=== PATIENT | female | born 1985 | race Two or more races ===

== ENCOUNTER 2024-04-02 01:14 | Emergency (ER) | payer MEDICARE, MEDICAID, SELFPAY ==
[2024-04-02] VITALS (7 sets, daily range): BP systolic 106–139; BP diastolic 59–88; PULSE 75–93; RESP 16–20; TEMP 36.6–37.1; O2SAT 98–100; BMI 33.0
--- NOTE | 2024-04-02 01:34 | EKG_ITS ---
[facility] Test Date: 2024-04-02 Pat Name: ADDIE RODRIGUEZ Department: Room: - Gender: Female [employer] V[employer] Tender: : 1985 Requested By: Wilbur Moss Order Number: [id number] Reading MD: Wilbur Moss Measurements Intervals [place] Rate: 77 P: -34 SD: 122 QRS: 26 QRSD: 101 T: 12 QT: 365 QTc: 414 Interpretive Statements SINUS RHYTHM POSSIBLE ANTERIOR MYOCARDIAL INFARCTION , PROBABLY OLD [30 ms Q WAVE IN V3/V4, OR R < 0.2 mV IN V4] Compared to ECG 04/24/2021 13:04:38 Myocardial infarct finding now present /store/S0/[id number]/ecg/[id number]
--- NOTE | 2024-04-02 01:34 | XR_ITS ---
Examination: PA chest single view Technique: Upright PA chest single view Exam date and time: April 02, 2024 at 1349 hrs. Comparison July 17, 2021 Indications: Coughing shortness of breath beginning 3 days oh Findings: Mild prominence of ventricle Mild vascular congestion Subtle interstitial disease bilaterally especially right lung Impression: Subtle interstitial disease bilaterally especially right lung, most consistent with pneumonia
--- NOTE | 2024-04-02 01:35 | EDRME_ITS ---
Rapid Medical Screening Exam RME Arrival date/time: 04/02/24 01:14 39F with extensive PMH including SLE, Valley Fever, and kidney transplant at [facility] [[email or web address]] presents to ED with 3 days of CP and SOB. Patient was given Bactrim by PCP for presumptive PNA. Patient is feeling worse. Chief Complaint: General Adult/Misc Complain Vital signs: Vital Signs Temperature 98.2 F 04/02/24 01:22 Pulse Rate 80 04/02/24 01:22 Respiratory Rate 18 04/02/24 01:22 Blood Pressure 138/86 H 04/02/24 01:22 Pulse Oximetry (%) 100 04/02/24 01:22 Oxygen Delivery Method Room Air 04/02/24 01:22
[2024-04-02 02:04] LABS: Lactate (Lactic Acid) 0.6 mMol/L (0.4-2.0)
[2024-04-02 02:05] LABS: Basophils # (Auto) 0.1 Thou/mm3 (0.0-0.2); Basophils % (Auto) 1 % (0-2.5); Eosinophils # (Auto) 0.3 Thou/mm3 (0.0-0.5); Eosinophils % (Auto) 3 % (0-10); Hematocrit 36.6 % (36.0-46.0); Immature Granulocytes % (Auto) 1 % (0-0); Immature Granulocytes Auto 0.08 Thou/mm3 (0.00-0.00); Lymphocytes # (Auto) 1.6 Thou/mm3 (1.0-4.8); Lymphocytes % (Auto) 15 % (10-50); Mean Corpuscular HGB Conc 32.8 g/dl (31.0-37.0); Mean Corpuscular Hemoglobin 27.2 pg (25.0-35.0); Mean Corpuscular Volume 83 fL (80-100); Monocytes # (Auto) 0.7 Thou/mm3 (0.0-0.8); Monocytes % (Auto) 6 % (0-12); Neutrophils # (Auto) 8.2 Thou/mm3 (1.8-7.7); Neutrophils % (Auto) 75 % (37-80); Nucleated Red Blood Cell % 0 /100 WBC (0); Platelet Count 297 Thou/mm3 (140-440); RDW Standard Deviation 41.5 fL (36.4-46.3); Red Blood Count 4.41 Miln/mm3 (4.00-5.20); White Blood Count 10.9 Thou/mm3 (3.6-11.0)
[2024-04-02 02:36] LABS: B-Type Natriuretic Peptide 33 pg/mL (0-100)
[2024-04-02 02:44] LABS: Alanine Aminotransferase 45 U/L (10-49); Albumin, Serum 4.5 gm/dL (3.5-5.0); Albumin/Globulin Ratio 1.6 (1.2-2.2); Alkaline Phosphatase 151 U/L (46-116); Anion Gap 7 (7-16); Aspartate Amino Transferase 21 U/L (0-34); BUN/Creatinine Ratio 17 Ratio (12-20); Bilirubin,Total 0.2 mg/dL (0.3-1.2); Blood Urea Nitrogen 26 mg/dL (9-23); Chloride 103 mMol/L (98-107); Creatinine (Component) 1.5 mg/dL (0.6-1.3); Estimated Creatinine Clearance 57.8 mL/min (>60); Globulin 2.8 gm/dL (2.3-3.5); Glucose 79 mg/dL (74-106); Osmolality,Calculated 275 (275-295); Potassium 3.6 mMol/L (3.4-5.1); Procalcitonin < 0.04 ng/ml (0.0-0.49); Sodium 136 mMol/L (136-145); Total Protein 7.3 gm/dL (5.7-8.2); Troponin I < 0.020 ng/mL (0.0-0.045); eGFR 45 See Note
--- NOTE | 2024-04-02 03:27 | PD.EDADULT ---
ED General RME/HPI General Chief complaint: General Adult/Misc Complain Stated complaint: FEELING ILL Time Seen by Provider: 04/02/24 02:10 Arrival date/time: 04/02/24 01:14 RME / HPI RME / HPI narrative: 04/02/24 01:14 39F with extensive PMH including SLE, Valley Fever, and kidney transplant at [facility] presents to ED with 3 days of CP and SOB. Patient was given Bactrim by PCP for presumptive PNA. Patient is feeling worse. Related Data Home Medications ?Medication ?Instructions ?Recorded ?Confirmed hydroxychloroquine 200 mg tablet 200 mg PO BID ##60 12/21/16 08/28/20 atenolol 25 mg tablet 25 mg PO BID 01/24/18 08/28/20 mycophenolate sodium 180 mg 720 mg PO BID 08/28/20 08/28/20 tablet,delayed release omeprazole 20 mg capsule,delayed 20 mg PO DAILY 08/28/20 08/28/20 release prednisone 5 mg tablet 5 mg PO QDAY 08/28/20 08/28/20 tacrolimus 1 mg capsule, 5 mg PO QPM 08/28/20 08/28/20 immediate-release tacrolimus 1 mg capsule, 4 mg PO QAM 08/28/20 08/28/20 immediate-release (Prograf) Previous Rx's ?Medication ?Instructions ?Recorded metronidazole 500 mg tablet 500 mg PO TID #20 tabs 08/30/20 hydrocodone 5 mg-acetaminophen 325 1 tab PO BID PRN pain #14 tabs 03/20/21 mg tablet dicyclomine 20 mg tablet 20 mg PO TID biliary colic #20 tabs 04/24/21 tramadol 50 mg tablet 50 mg PO BID PRN pain #14 tabs 04/24/21 dicyclomine 20 mg tablet 20 mg PO QID PRN abdominal pain 08/27/21 #14 tabs Allergies Allergy/AdvReac Type Severity Reaction Status Date / Time Penicillins Allergy Severe RASH / Verified 04/02/24 01:17 SWELLING acetaminophen Allergy Rash Verified 04/02/24 01:17 Course Orders Category Date Time Status Bedside COVID-19 Antigen Test NOW Care 04/02/24 01:34 Active Bedside Influenza A&B Antigen Test NOW Care 04/02/24 01:34 Completed EKG (ED ONLY) *Do not use* NOW Care 04/02/24 01:34 Active EKG (ED Only) Stat Exams 04/02/24 01:34 Ordered XR chest 1V portable Stat Exams 04/02/24 01:34 Taken B-Type Natriuretic Peptide Stat Lab 04/02/24 01:56 Completed Blood Culture (Lab) Stat Lab 04/02/24 01:56 Received CBC Stat Lab 04/02/24 01:56 Completed Comprehensive Metabolic Panel Stat Lab 04/02/24 01:56 Completed Lactate (Lactic Acid) Stat Lab 04/02/24 01:56 Completed Procalcitonin Stat Lab 04/02/24 01:56 Completed RSV [Respiratory Syncytial Virus Ag] Stat Lab 04/02/24 01:34 Ordered Troponin I Stat Lab 04/02/24 01:56 Completed Vital Signs Vital signs: Vital Signs Temperature 98.2 F 04/02/24 01:22 Pulse Rate 80 04/02/24 01:22 Respiratory Rate 18 04/02/24 01:22 Blood Pressure 138/86 H 04/02/24 01:22 Pulse Oximetry (%) 100 04/02/24 01:22 Oxygen Delivery Method Room Air 04/02/24 01:22 Medical Decision Making Lab Data 04/02/24 01:56 04/02/24 01:56 Labs: Lab Results 04/02/24 Range/Units 01:56 WBC 10.9 (3.6-11.0) Thou/mm3 RBC 4.41 (4.00-5.20) Miln/mm3 Hgb 12.0 (12.0-16.0) g/dL Hct 36.6 (36.0-46.0) % MCV 83 (80-100) fL MCH 27.2 (25.0-35.0) pg MCHC 32.8 (31.0-37.0) g/dl RDW Std Deviation 41.5 (36.4-46.3) fL Plt Count 297 (140-440) Thou/mm3 Neut % (Auto) 75 (37-80) % Lymph % (Auto) 15 (10-50) % [place] % (Auto) 6 (0-12) % Eos % (Auto) 3 (0-10) % Baso % (Auto) 1 (0-2.5) % Neut # (Auto) 8.2 H (1.8-7.7) Thou/mm3 Lymph # (Auto) 1.6 (1.0-4.8) Thou/mm3 [place] # (Auto) 0.7 (0.0-0.8) Thou/mm3 Eos # (Auto) 0.3 (0.0-0.5) Thou/mm3 Baso # (Auto) 0.1 (0.0-0.2) Thou/mm3 Immature Gran # (Auto) 0.08 H (0.00-0.00) Thou/mm3 Absolute Nucleated RBC 0.00 (0.00-0.00) Thou/mm3 Immature Gran % 1 H (0-0) % Nucleated RBC % 0 (0) /100 WBC Sodium 136 (136-145) mMol/L Potassium 3.6 (3.4-5.1) mMol/L Chloride 103 (98-107) mMol/L Carbon Dioxide 26.0 (20.0-31.0) mMol/L Anion Gap 7 (7-16) BUN 26 H (9-23) mg/dL Creatinine 1.5 H (0.6-1.3) mg/dL Estim Creat Clear Calc 57.8 L (>60) mL/min eGFR 45 L (60 - ) See Note BUN/Creatinine Ratio 17 (12-20) Ratio Glucose 79 (74-106) mg/dL Calculated Osmolality 275 (275-295) Lactic Acid 0.6 (0.4-2.0) mMol/L Calcium 9.0 (8.3-10.6) mg/dL Corrected Calcium 9.0 (8.5-10.1) mg/dL Total Bilirubin 0.2 L (0.3-1.2) mg/dL AST 21 (0-34) U/L ALT 45 (10-49) U/L Alkaline Phosphatase 151 H (46-116) U/L Troponin I < 0.020 (0.0-0.045) ng/mL B-Natriuretic Peptide 33 (0-100) pg/mL Total Protein 7.3 (5.7-8.2) gm/dL Albumin 4.5 (3.5-5.0) gm/dL Globulin 2.8 (2.3-3.5) gm/dL Albumin/Globulin Ratio 1.6 (1.2-2.2) Procalcitonin < 0.04 (0.0-0.49) ng/ml Discharge Plan Prescriptions/Referrals Prescriptions/Med Rec: No Action hydroxychloroquine 200 mg Tablet 200 mg PO BID Qty: 60 prednisone 5 mg Tablet 5 mg PO QDAY tacrolimus [Prograf] 1 mg Capsule 4 mg PO QAM Rx Instructions: take 4 capsules (1 mg each) omeprazole 20 mg Capsule,Delayed Release(Dr/Ec) 20 mg PO DAILY tacrolimus 1 mg Capsule 5 mg PO QPM Rx Instructions: take 5 capsules (1 mg each) mycophenolate sodium 180 mg Tablet,Delayed Release (Dr/Ec) 720 mg PO BID metronidazole 500 mg tablet 500 mg PO TID Qty: 20 0RF hydrocodone-acetaminophen 5-325 mg tablet 1 tab PO BID MDD 4 PRN (Reason: pain) Qty: 14 0RF dicyclomine 20 mg tablet 20 mg PO QID PRN (Reason: abdominal pain) Qty: 14 0RF atenolol 25 mg Tablet 25 mg PO BID dicyclomine 20 mg tablet 20 mg PO TID Qty: 20 0RF tramadol 50 mg tablet 50 mg PO BID PRN (Reason: pain) Qty: 14 0RF Patient/Caregiver Discharge Instructions Print Language: Korean
--- NOTE | 2024-04-02 03:35 | PC.NURSE ---
In to assess pt at this time. Pt presents to er with c/o not feeling well . Pt states she's had a cough non productive, for 3 days. Was seen by pcp 1 week ago and Dx with pneumonia, but did not start abx for pneumonia until yest morning. Pt placed on vital sign monitoring. updated on plan of care. pt care ongoing at this time.
[2024-04-02 04:32] LABS: Respiratory Syncytial Virus Ag Negative (Negative)
--- NOTE | 2024-04-02 06:39 | EDNOTE_ITS ---
Upper Respiratory Inf. RME/HPI General Chief Complaint: General Adult/Misc Complain Stated Complaint: FEELING ILL Time Seen by Provider: 04/02/24 02:10 Arrival date/time: 04/02/24 01:14 RME / HPI RME / HPI Narrative: 39 year old female with history of s/p renal transplant at [facility] in 2019, hypertension, lupus, valley fever presents to the ED BIBA from home for evaluation of cough x 3 days and fevers beginning yesterday. States highest recorded temperature at home was 101F and did not take any fever reducing medications. Reportedly was diagnosed with pneumonia 1 week ago and started on antibiotics by Dr. Godfrey, received last dose yesterday morning. Denies chest pain, shortness of breath, abdominal pain, n/v/d, or urinary symptoms. Related Data Home Medications ?Medication ?Instructions ?Recorded ?Confirmed hydroxychloroquine 200 mg tablet 200 mg PO BID ##60 12/21/16 08/28/20 atenolol 25 mg tablet 25 mg PO BID 01/24/18 08/28/20 mycophenolate sodium 180 mg 720 mg PO BID 08/28/20 08/28/20 tablet,delayed release omeprazole 20 mg capsule,delayed 20 mg PO DAILY 08/28/20 08/28/20 release prednisone 5 mg tablet 5 mg PO QDAY 08/28/20 08/28/20 tacrolimus 1 mg capsule, 5 mg PO QPM 08/28/20 08/28/20 immediate-release tacrolimus 1 mg capsule, 4 mg PO QAM 08/28/20 08/28/20 immediate-release (Prograf) Previous Rx's ?Medication ?Instructions ?Recorded metronidazole 500 mg tablet 500 mg PO TID #20 tabs 08/30/20 hydrocodone 5 mg-acetaminophen 325 1 tab PO BID PRN pain #14 tabs 03/20/21 mg tablet dicyclomine 20 mg tablet 20 mg PO TID biliary colic #20 tabs 04/24/21 tramadol 50 mg tablet 50 mg PO BID PRN pain #14 tabs 04/24/21 dicyclomine 20 mg tablet 20 mg PO QID PRN abdominal pain 08/27/21 #14 tabs azithromycin 250 mg tablet See Rx Instructions PO .COMPLEX #6 04/02/24 (Zithromax Z-Kareem) tabs Allergies Allergy/AdvReac Type Severity Reaction Status Date / Time Penicillins Allergy Severe RASH / Verified 04/02/24 01:17 SWELLING acetaminophen Allergy Rash Verified 04/02/24 01:17 Review of Systems Review of Systems Narrative Review of Systems: GEN: +fever, no chills, no weight loss EYES: No discharge, no visual changes, no pain HEENT: No ear pain, no congestion, no sore throat PULM: No shortness of breath, +cough CV: No chest pain, no dyspnea on exertion, no palpitations GI: No nausea, no vomiting, no diarrhea, no pain, no constipation : No frequency, no urgency and no dysuria MUSC/SKEL No joint pain, no back pain SKIN: No rash NEURO: No weakness, no headache Past Medical History Past Medical History NEUROLOGIC: Positive Neurological Disorders and Seizures RESPIRATORY: Positive Pulmonary Embolism GENITOURINARY: Positive Genitourinary Disorders, Renal Disease and Dialysis ENDOCRINE: Positive Endocrine Disorders, Hypothyroidism and Systemic Lupus Erythematosus HEMATOLOGIC: Positive Blood Disorders and Anemia OTHER HISTORY: Positive Blood Transfusions and Organ Transplant Family History FAMILY HISTORY: Positive Family Cardiac Disorders Surgical History SURGICAL: Positive Endocrine Surgery, Thyroidectomy, Abdominal Surgery, Nephrectomy and Organ Transplant Social History SMOKING STATUS: Never smoker SUBSTANCE USE: does not use ED Exam Narrative Physical exam: GENERAL APPEARANCE: Well hydrated, well nourished, in no acute distress. VITALS: All vitals were reviewed and the pulse ox is 98% on room air which is normal according to my interpretation. HEENT: Normocephalic, atramatic, EOMI, EACs are patent. There is no bulge or retraction. Throat without erythema or exudate. Moist oromucosa. No jaundice NECK: Supple, no JVD or bruits. CARDIOVASCULAR: Heart regular without S3-S4 or murmur. No rubs or gallops. LUNGS/CHEST: Clear to auscultation bilaterally. No rales, rhonchi, or wheezing. Normal inspection. ABDOMEN: Soft, nontender, with normal bowel sounds. No pulsatile masses. No rebound, rigidity, or guarding. No incarcerated hernia. Normal inspection and palpation. EXTREMITIES: Normal inspection and palpation. No edema, clubbing, or cyanosis. Intact CSM SKIN: Warm and dry without rashes. Normal inspection. MUSCULOSKELETAL: Normal inspection. No gross deformity, full ROM all extremities NEURO: Alert and oriented x3. Cranial nerves II through XII grossly intact. There are no other motor or sensory deficits noted. PSYCHIATRIC: Normal mood and affect. No psychosis. Course Course Course Narrative: chest xray ordered to help determine etiology of cough. Quality Measures none Orders Category Date Time Status Bedside COVID-19 Antigen Test NOW Care 04/02/24 01:34 Active Bedside Influenza A&B Antigen Test NOW Care 04/02/24 01:34 Completed EKG (ED ONLY) *Do not use* NOW Care 04/02/24 01:34 Completed EKG (ED Only) Stat Exams 04/02/24 01:34 Draft XR chest 1V portable Stat Exams 04/02/24 01:34 Completed B-Type Natriuretic Peptide Stat Lab 04/02/24 01:56 Completed Blood Culture (Lab) Stat Lab 04/02/24 01:56 Received CBC Stat Lab 04/02/24 01:56 Completed Comprehensive Metabolic Panel Stat Lab 04/02/24 01:56 Completed HCG Qualitative,Urine Stat Lab 04/02/24 06:15 Completed Lactate (Lactic Acid) Stat Lab 04/02/24 01:56 Completed Procalcitonin Stat Lab 04/02/24 01:56 Completed RSV [Respiratory Syncytial Virus Ag] Stat Lab 04/02/24 03:15 Completed Troponin I Stat Lab 04/02/24 01:56 Completed UA, C/S IF [Urinalysis, C/S if Indicated] Stat Lab 04/02/24 06:15 Completed Sodium Chloride 0.9% 1000 ml [Ns] 1,000 ml Med 04/02/24 06:30 Discontinued IV 999 mls/hr cefTRIAXone/D5w 1gm IV premix [Rocephin/D5w 1gm IV Med 04/02/24 06:31 Discontinued premix] 50 ml IV X1 Vital Signs Vital signs: Vital Signs Temperature 98.2 F 04/02/24 01:22 Pulse Rate 80 04/02/24 01:22 Respiratory Rate 18 04/02/24 01:22 Blood Pressure 138/86 H 04/02/24 01:22 Pulse Oximetry (%) 100 04/02/24 01:22 Oxygen Delivery Method Room Air 04/02/24 01:22 Upper Respiratory Infection MDM Narrative MDM Narrative:: Rika Menezes am scribing for and in the presence of Dr. Jones. Patient chief complaint is coughing and pneumonia for a couple weeks. She has seen by PMD and was put on some sort of antibiotic but she does not know the name. She claims a fever yesterday of 101. Exam is very much unremarkable. Absolutely no surgical abdomen. CBC negative. BUN of 26 and creatinine is 1.5. Does show signs of dehydration. So therefore we will give the patient a liter of normal saline bolus. test negative. UA is negative. COVID-19 and influenza are negative. Lactic acid negative. Troponin negative. BNP negative. Procalcitonin negative. RSV is negative. Chest x-ray reviewed and interpreted by me as follow: Heart normal. Mediastinum normal. Normal bones. There is some slight infiltrate in the right base. May be consistent with pneumonia. That is why we give the patient a shot of Rocephin IV. Twelve-lead EKG that was done at 1:28 AM and interpreted by me: Normal sinus rhythm. Heart rate of 79. Normal axis. No ST elevation or depression. No PVC. No STEMI. Regular rate and rhythm. 11:43 AM, the patient is alert awake oriented x 4 GCS of 15 blood cells are stable. The patient is doing very well. Well-hydrated. She will go home on Zithromax p.o. And she will follow-up with her medical doctor. Her kidney function is fine. Creatinine is 1.5 which is similar to before. Patient data External records reviewed:: [facility] previous records (I reviewed ED visit on 09/17/2023) and EMS form Clinical information provided by:: patient Social determinants that could affect healthcare access:: none Patient has the following chronic illnesses:: s/p renal transplant at [facility] in 2019, hypertension, lupus, valley fever Dx with pneumonia recently How is presenting disease/condition affected by chronic disease/condition?: exacerbated by Evaluation data The following diagnostics were reviewed and interpreted by me:: lab results, radiology exam(s) and EKG tracing(s) Lab and/or radiology exams considered but not ordered:: None Interpretation Summary: Ordering Physician: Wilbur Moss PA-C Date of Service: 04/02/24 Procedure(s): XR chest 1V portable Accession Number(s): [id number] cc: Vic Trejo MD; Cosmo Martinez MD; Wilbur Moss PA-C~ Examination: PA chest single view Technique: Upright PA chest single view Exam date and time: April 02, 2024 at 1349 hrs. Comparison July 17, 2021 Indications: Coughing shortness of breath beginning 3 days oh Findings: Mild prominence of ventricle Mild vascular congestion Subtle interstitial disease bilaterally especially right lung Impression: Subtle interstitial disease bilaterally especially right lung, most consistent with pneumonia Dictated By: Cosmo Martinez MD Signed By: <Electronically signed by Cosmo Martinez MD in OV> 04/02/24 0837 Medications / Prescriptions Medications or Prescriptions considered but not ordered:: None Medication administrations:: Medication Administration History Discontinued Medications Sodium Chloride (Ns) 1,000 mls @ 999 mls/hr IV .Q1H1M ONE Stop: 04/02/24 07:30 Last Infusion: 04/02/24 08:08 Dose: Infused Documented By: Admin: 04/02/24 06:54 Dose: 999 mls/hr Documented By: ENRIQUETA Ceftriaxone Sodium/Dextrose (Rocephin/D5w 1gm Iv Premix) 50 mls @ 100 mls/hr IV X1 ONE Stop: 04/02/24 07:00 Last Infusion: 04/02/24 08:08 Dose: Infused Documented By: Admin: 04/02/24 06:54 Dose: 100 mls/hr Documented By: ENRIQUETA See above Consultations Consultation(s) initiated? (list below): No Diagnosis Upper Respiratory Differential Diagnosis: upper respiratory infection, viral infection, bronchitis, influenza and other (Pneumonia ) Most likely diagnosis given after review of the tests above:: Pneumonia Kidney transplant Admission Indicated Admission indicated?: not indicated Admission Request Was there a request for admission?: No Disposition Plan Disposition Plan: Discharge Discharge Attestation Discharge Attestation: The patient and all family members were given an opportunity to ask questions and understood the discharge instructions. Discharge instructions specifically effects, indications for sooner follow up or return to the emergency department, and the expected course of current diagnosis. Patient condition: Stable Discharge Plan Plan Patient Disposition: HOME (Self Care) Disposition Comment: Stable to go home Prescriptions/Referrals Prescriptions/Med Rec: New azithromycin [Zithromax Z-Kareem] 250 mg tablet See Rx Instructions PO .COMPLEX Qty: 6 0RF Rx Instructions: For 250 mg dose pack: take 500 mg today (day 1), then 250 mg for 4 days (days 2-5) No Action hydroxychloroquine 200 mg Tablet 200 mg PO BID Qty: 60 prednisone 5 mg Tablet 5 mg PO QDAY tacrolimus [Prograf] 1 mg Capsule 4 mg PO QAM Rx Instructions: take 4 capsules (1 mg each) omeprazole 20 mg Capsule,Delayed Release(Dr/Ec) 20 mg PO DAILY tacrolimus 1 mg Capsule 5 mg PO QPM Rx Instructions: take 5 capsules (1 mg each) mycophenolate sodium 180 mg Tablet,Delayed Release (Dr/Ec) 720 mg PO BID metronidazole 500 mg tablet 500 mg PO TID Qty: 20 0RF hydrocodone-acetaminophen 5-325 mg tablet 1 tab PO BID MDD 4 PRN (Reason: pain) Qty: 14 0RF dicyclomine 20 mg tablet 20 mg PO QID PRN (Reason: abdominal pain) Qty: 14 0RF atenolol 25 mg Tablet 25 mg PO BID dicyclomine 20 mg tablet 20 mg PO TID Qty: 20 0RF tramadol 50 mg tablet 50 mg PO BID PRN (Reason: pain) Qty: 14 0RF Referrals: Vic Trejo MD [Primary Care Provider] - In 1 week Problem List Clinical Impression: Pneumonia, Kidney transplant status Patient/Caregiver Discharge Instructions Education Materials: ED Pneumonia (Adult) Additional Instructions: Ibuprofen as needed for fever and pain. Rest. Drink plenty of liquid. Take Zithromax for pneumonia. You need to follow-up with your medical doctor in 3 days. Return to the emergency department if any problem. Print Language: Kazakh Stand Alone Forms: [employer] Award Info., Patient Portal Info Letter
[2024-04-02] MEDS: cefTRIAXone/D5w 1gm IV premix 50 ML IV (06:54)
[2024-04-02] MEDS: SODIUM CHLORIDE 0.9% 1000 ML 1,000 ML 999 ML IV (06:54)
--- NOTE | 2024-04-02 07:29 | PC.NURSE ---
Pt sitting up on stretcher, denies any pain or discomfort at this time, fluids infusing at this time. Call alvarenga remains in reach.
[2024-04-02 07:42] LABS: Collection Type, Urine Catheter
[2024-04-02 08:09] LABS: Bilirubin,Urine Negative (Negative); Blood,Urine Negative (Negative); Clarity,Urine Clear (Clear/Hazy); Color,Urine Colorless (Lt Yel-Yel); Culture Indicated,Urine Not Indicated; Glucose, Urine Negative (Negative); Ketones,Urine Negative (Negative); Leukocyte Esterase,Urine Negative (Negative); Nitrite,Urine Negative (Negative); PH,Urine 6.5 (5.0-7.0); Protein,Urine Negative (Neg - Trace); RBC,Urine < 1 /hpf (0-3); Specific Gravity,Urine 1.007 (1.001-1.035); Squamous Epithelial Cell,Urine 1 /hpf (0-5); Urobilinogen,Urine Negative mg/dL (0.0-1.0); WBC,Urine 1 /hpf (0-5)
[2024-04-02 08:15] LABS: HCG Qualitative,Urine Negative
== END 2024-04-02 11:58 | disposition home or self-care (01) ==
PROVIDERS: Physician Assistant; Emergency Provider Emergency Medicine; PCP Family Medicine
DX: J18.9 Pneumonia, unspecified organism (principal); Z94.0 Kidney transplant status; I10 Essential (primary) hypertension
CPT/HCPCS: 36415; 71045; 80053; 81001; 81025; 83605; 83880; 84145; 84484; 85025; 87040; 87400; 87634; 87811; 93005; 96365; 99284; J0696; J7030

== ENCOUNTER 2024-06-07 21:01 | Emergency (ER) | payer MEDICARE, MEDICAID, SELFPAY ==
--- NOTE | 2024-06-07 21:05 | EKG_ITS ---
[facility] Test Date: 2024-06-07 Pat Name: ADDIE RODRIGUEZ Department: Room: - Gender: Female Test Technician: : 1985 Requested By: Thanh Ellington Order Number: [id number] Reading MD: Thanh Ellington Measurements Intervals [place] Rate: 86 P: 39 HI: 172 QRS: 7 QRSD: 81 T: 64 QT: 360 QTc: 432 Interpretive Statements SINUS RHYTHM LOW QRS VOLTAGE IN PRECORDIAL LEADS [QRS DEFLECTION < 1.0 mV IN CHEST LEADS] Compared to ECG 04/02/2024 09:09:55 Low QRS voltage now present Myocardial infarct finding no longer present /store/S0/[id number]/[id number]
--- NOTE | 2024-06-07 21:05 | PD.EDADULT ---
ED General RME/HPI General Chief complaint: Abdominal Pain Stated complaint: CHEST PAIN Time Seen by Provider: 06/07/24 21:04 Arrival date/time: 06/07/24 21:01 CC: Nausea vomiting HPI onset 2 hours ago, denies fever chest pain shortness of breath difficulty breathing but is complaining of epigastric pain. Denies diarrhea. History of transplant valley fever and lupus. EMS reports stable vital signs in transit when patient complains of chest pain she points to the epigastrium. Related Data Home Medications ?Medication ?Instructions ?Recorded ?Confirmed hydroxychloroquine 200 mg tablet 200 mg PO BID ##60 12/21/16 06/08/24 mycophenolate sodium 180 mg See Rx Instructions PO BID 08/28/20 06/08/24 tablet,delayed release omeprazole 20 mg capsule,delayed 20 mg PO DAILY 08/28/20 06/08/24 release prednisone 5 mg tablet 5 mg PO QDAY 08/28/20 06/08/24 tacrolimus 1 mg capsule, 5 mg PO QPM 08/28/20 06/08/24 immediate-release tacrolimus 1 mg capsule, 1 mg PO QAM 08/28/20 06/08/24 immediate-release (Prograf) cholecalciferol (vitamin D3) 1,250 50,000 unit PO .WEEK 06/08/24 06/09/24 mcg (50,000 unit) capsule clonidine HCl 0.1 mg tablet 0.1 mg PO QDAY PRN hypertensive 06/08/24 06/08/24 emergency fluconazole 200 mg tablet 600 mg PO DAILY 06/08/24 06/09/24 magnesium 200 mg tablet See Rx Instructions PO QDAY 06/08/24 06/08/24 prednisone 20 mg tablet See Rx Instructions PO QDAY 06/08/24 06/08/24 Allergies Allergy/AdvReac Type Severity Reaction Status Date / Time Penicillins Allergy Severe RASH / Verified 06/07/24 21:06 SWELLING acetaminophen Allergy Rash Verified 06/07/24 21:06 Review of Systems Review of Systems Narrative Review of Systems: GEN: No fever, no chills, no weight loss EYES: No discharge, no visual changes, no pain HEENT: No ear pain, no congestion, no sore throat PULM: No shortness of breath, no cough, no congestion CV: + chest pain, no dyspnea on exertion, no palpitations GI: + nausea, + vomiting, no diarrhea, no pain, no constipation : No frequency, no urgency, no dysuria MUSC/SKEL: No joint pain, no back pain SKIN: No rash PSYCH: No hallucinations, no depression HEME/LYMPH: No easy bleeding or bruising tendencies NEURO: No weakness, no headache Past Medical History Past Medical History NEUROLOGIC: Positive Neurological Disorders and Seizures CARDIAC: Negative Cardiac Disorders, Hypercholesterolemia, Congestive Heart Failure, Edema or Hypertension RESPIRATORY: Positive Pulmonary Embolism; Negative Chronic Obstructive Pulmonary Disease (COPD) or Asthma GASTROINTESTINAL: Negative Gastrointestinal Disorders GENITOURINARY: Positive Genitourinary Disorders, Renal Disease and Dialysis MUSCULOSKELETAL: Negative Musculoskeletal Disorders ENDOCRINE: Positive Endocrine Disorders, Hypothyroidism and Systemic Lupus Erythematosus; Negative Diabetes Mellitus Type 1 or Diabetes Mellitus Type 2 HEMATOLOGIC: Positive Blood Disorders and Anemia; Negative Sickle Cell Disease OTHER HISTORY: Positive Blood Transfusions and Organ Transplant Family History FAMILY HISTORY: Positive Family Cardiac Disorders Surgical History SURGICAL: Positive Endocrine Surgery, Thyroidectomy, Abdominal Surgery, Nephrectomy and Organ Transplant Social History SMOKING STATUS: Never smoker SUBSTANCE USE: does not use ED Exam Narrative Physical exam: [General: Obese in mild discomfort but not in any acute distress Head normocephalic HEENT: Within acceptable limits Neck is supple nontender Chest equal chest rise nontender to palpation Respiratory: Clear to auscultation no wheezes crackles or rubs CV: Rate rhythm is regular no murmurs rubs or clicks Abdomen is distended secondary to body habitus soft nontender no masses positive bowel sounds all 4 quadrants Back: No CVA tenderness no spinous process tenderness from cervical spine thoracic and lumbar spine Skin: Intact no petechiae rash induration ulceration or crepitus Extremities: Moving all extremity against resistance cap refill less than 2 seconds neurosensory intact Neuro: Awake alert oriented x3 Glascow coma 15 no focal deficits] Course Quality Measures none Orders Category Date Time Status Bedside COVID-19 Antigen Test NOW Care 06/07/24 22:12 Active Bedside Influenza A&B Antigen Test NOW Care 06/07/24 21:07 Completed EKG (ED ONLY) *Do not use* NOW Care 06/07/24 21:05 Completed IV [Insert IV] NOW Care 06/07/24 22:47 Active Diet Renal Diet 06/09/24 Lunch Active Transfer to another facility [Transfer/Discharge] Stat Discharge 06/08/24 13:[address] abdomen pelvis wo con Stat Exams 06/08/24 03:[address] chest wo con Stat Exams 06/08/24 08:45 Completed EKG (ED Only) Stat Exams 06/07/24 21:05 Draft US gall bladder Stat Exams 06/08/24 00:00 Completed XR chest 2V Stat Exams 06/08/24 08:46 Completed B-Type Natriuretic Peptide Stat Lab 06/07/24 22:09 Completed CBC Stat Lab 06/07/24 22:09 Completed CBC Stat Lab 06/08/24 03:50 Completed CBC Stat Lab 06/08/24 13:05 Completed CMP [Comprehensive Metabolic Panel] Stat Lab 06/08/24 13:05 Completed Calcium Stat Lab 06/08/24 15:35 Completed Calcium, Ionized Stat Lab 06/08/24 15:35 Completed Comprehensive Metabolic Panel Stat Lab 06/07/24 22:09 Completed Drug Screen,Urine Stat Lab 06/07/24 23:50 Completed HCG Qualitative,Urine Stat Lab 06/07/24 23:50 Completed Lactic Acid [Lactate (Lactic Acid)] Stat Lab 06/08/24 15:35 Completed Lipase Stat Lab 06/07/24 22:09 Completed Magnesium Stat Lab 06/07/24 22:09 Completed Partial Thromboplastin Time Stat Lab 06/07/24 22:09 Completed Phosphorous Stat Lab 06/08/24 15:35 Completed Prothrombin Time with INR Stat Lab 06/07/24 22:09 Completed Troponin I Stat Lab 06/07/24 22:09 Completed Type and Screen Stat Lab 06/08/24 03:50 Completed Urinalysis Stat Lab 06/07/24 23:50 Completed Metoclopramide Inj [Reglan Inj] Med 06/08/24 03:30 Discontinued 5 mg IVP X1 ONE Morphine Inj Med 06/07/24 22:32 Discontinued 4 mg IVP X1 ONE Morphine Inj Med 06/07/24 23:15 Discontinued 4 mg IVP X1 ONE Morphine Inj Med 06/08/24 03:12 Discontinued 4 mg IVP X1 ONE Morphine Inj Med 06/08/24 08:56 Discontinued 4 mg IVP X1 ONE Morphine Inj Med 06/08/24 14:59 Discontinued 4 mg IVP X1 ONE Morphine Inj Med 06/09/24 00:09 Discontinued 4 mg IVP X1 ONE Morphine Inj Med 06/09/24 12:06 Discontinued 4 mg IVP X1 ONE Ondansetron Inj [Zofran Inj] Med 06/07/24 22:32 Discontinued 4 mg IV X1 ONE Ondansetron Inj [Zofran Inj] Med 06/07/24 23:16 Discontinued 4 mg IV X1 ONE Ondansetron Inj [Zofran Inj] Med 06/08/24 03:12 Discontinued 4 mg IV X1 ONE Ondansetron Inj [Zofran Inj] Med 06/08/24 08:56 Discontinued 4 mg IV X1 ONE Ondansetron Inj [Zofran Inj] Med 06/08/24 14:59 Discontinued 4 mg IV X1 ONE Ondansetron Inj [Zofran Inj] Med 06/08/24 20:29 Discontinued 4 mg IV X1 ONE Ondansetron Inj [Zofran Inj] Med 06/09/24 00:10 Discontinued 4 mg IV X1 ONE Ondansetron Inj [Zofran Inj] Med 06/09/24 12:06 Discontinued 4 mg IV X1 ONE Pantoprazole Inj [Protonix Inj] Med 06/08/24 03:21 Discontinued 40 mg IVP X1 ONE Patient's Own Med [Patient's Own Medication] 1 ea Med 06/09/24 10:30 Active Pre-Mixed Bottle [Pre-mixed Bottle] 1 btl PO BID Sodium Chloride 0.9% 1000 ml [Ns] 1,000 ml Med 06/08/24 12:42 Active IV 150 mls/hr Sodium Chloride 0.9% 1000 ml [Ns] 1,000 ml Med 06/08/24 12:42 Discontinued IV 999 mls/hr Sodium Chloride 0.9% 1000 ml [Ns] 1,860 ml Med 06/07/24 23:23 Discontinued IV 1,860 mls/hr Tacrolimus [Prograf] Med 06/09/24 09:00 Active 1 mg PO QAM Tacrolimus [Prograf] Med 06/09/24 21:00 Active 5 mg PO QPM mg Hyd/Al Hyd/Billy Susp [Maalox Susp] Med 06/08/24 20:08 Discontinued 30 ml PO X1 ONE mycophenolate sodium Med 06/09/24 09:00 Discontinued See Dose Instructions PO BID Vital Signs Vital signs: Vital Signs Temperature 97.9 F 06/07/24 21:13 Pulse Rate 88 06/07/24 21:13 Respiratory Rate 20 06/07/24 21:13 Blood Pressure 133/93 H 06/07/24 21:13 Pulse Oximetry (%) 100 06/07/24 21:13 Oxygen Delivery Method Nasal Cannula 06/07/24 21:13 Oxygen Flow Rate 4 06/07/24 21:[address] [facility] Patient data External records reviewed:: [facility] previous records and EMS form Clinical information provided by:: patient and EMS Social determinants that could affect healthcare access:: none Patient has the following chronic illnesses:: Lupus valley fever renal transplant note: Patient took all of her antirejection medications today. How is presenting disease/condition affected by chronic disease/condition?: uneffected by Evaluation data The following diagnostics were reviewed and interpreted by me:: lab results, radiology exam(s) and EKG tracing(s) Lab and/or radiology exams considered but not ordered:: EKG performed at 2120 shows a ventricular rate of 86 KS interval 172 QRS of 8 1 QTc of 404 sinus rhythm. Interpretation Summary: See [facility] Medications Medications considered but not ordered:: See [facility] Medication administrations:: Medication Administration History Mycophenolic 180mg (Dr Tablet) 0 ea PO BID BOLIVAR Stop: 07/09/24 10:29 Sodium Chloride (Ns) 1,000 mls @ 150 mls/hr IV .Q6H40M BOLIVAR Stop: 07/08/24 12:41 Last Admin: 06/09/24 09:29 Dose: 150 mls/hr Documented By: Infusion: 06/09/24 09:16 Dose: Infused Documented By: Admin: 06/09/24 02:35 Dose: 150 mls/hr Documented By: Infusion: 06/09/24 02:35 Dose: Infused Documented By: Admin: 06/08/24 20:25 Dose: 150 mls/hr Documented By: Infusion: 06/08/24 20:09 Dose: Infused Documented By: Admin: 06/08/24 13:28 Dose: 150 mls/hr Documented By: GM Tacrolimus (Tacrolimus 1 Mg Capsule (Non-Formulary)) 1 mg PO QAM BOLIVAR Stop: 07/09/24 08:59 Last Admin: 06/09/24 09:39 Dose: Not Given Documented By: ELIELS Non-Admin Reason: PT STATES THAT SHE TOOK MEDS Tacrolimus (Tacrolimus 1 Mg Capsule (Non-Formulary)) 5 mg PO QPM BOLIVAR Stop: 07/09/24 20:59 Discontinued Medications Al Hydrox/Mg Hydrox/Simethicone (Mg Hyd/Al Hyd/Billy (Maalox Reg) Susp 30 Ml Udc) 30 ml PO X1 ONE Stop: 06/08/24 20:09 Last Admin: 06/08/24 20:25 Dose: 30 ml Documented By: MURPHY Sodium Chloride (Ns) 1,860 mls @ 1,860 mls/hr 20 ml/kg infuse over 60 min (1860 ml) IV .Q1H ONE Stop: 06/08/24 00:22 Last Infusion: 06/08/24 00:40 Dose: Infused Documented By: Admin: 06/07/24 23:38 Dose: 1,860 mls/hr Documented By: COURTNEY Sodium Chloride (Ns) 1,000 mls @ 999 mls/hr IV .Q1H1M ONE Stop: 06/08/24 13:42 Last Infusion: 06/08/24 13:51 Dose: Infused Documented By: Admin: 06/08/24 12:47 Dose: 999 mls/hr Documented By: GENARO Metoclopramide HCl (Metoclopramide Inj 5 Mg/Ml Vial 2 Ml) 5 mg IVP X1 ONE; Protocol Stop: 06/08/24 03:31 Last Admin: 06/08/24 03:41 Dose: Not Given Documented By: COURTNEY Non-Admin Reason: Contraindicated Comments: pt was told by her rn telemetry Morphine Sulfate (Morphine Sulf Inj 10 Mg/Ml Vial) 4 mg IVP X1 ONE Stop: 06/07/24 22:33 Last Admin: 06/07/24 22:51 Dose: 4 mg Documented By: COURTNEY Morphine Sulfate (Morphine Sulf Inj 10 Mg/Ml Vial) 4 mg IVP X1 ONE Stop: 06/07/24 23:16 Last Admin: 06/07/24 23:41 Dose: 4 mg Documented By: COURTNEY Morphine Sulfate (Morphine Sulf Inj 10 Mg/Ml Vial) 4 mg IVP X1 ONE Stop: 06/08/24 03:13 Last Admin: 06/08/24 03:27 Dose: 4 mg Documented By: COURTNEY Morphine Sulfate (Morphine Sulf Inj 10 Mg/Ml Vial) 4 mg IVP X1 ONE Stop: 06/08/24 08:57 Last Admin: 06/08/24 09:02 Dose: 4 mg Documented By: GENARO Morphine Sulfate (Morphine Sulf Inj 10 Mg/Ml Vial) 4 mg IVP X1 ONE Stop: 06/08/24 15:00 Last Admin: 06/08/24 15:07 Dose: 4 mg Documented By: MOIRA Morphine Sulfate (Morphine Sulf Inj 10 Mg/Ml Vial) 4 mg IVP X1 ONE Stop: 06/09/24 00:10 Last Admin: 06/09/24 00:19 Dose: 4 mg Documented By: MURPHY Morphine Sulfate (Morphine Sulf Inj 10 Mg/Ml Vial) 4 mg IVP X1 ONE Stop: 06/09/24 12:07 Last Admin: 06/09/24 12:22 Dose: 4 mg Documented By: SHAHRAM Comments: RR 20 Home Medication- Please Speak With Patient Caregiver To Have Rx Brought To [facility] 0 mg PO BID BOLIVAR Stop: 07/09/24 08:59 Last Admin: 06/09/24 09:39 Dose: Not Given Documented By: SHAHRAM Non-Admin Reason: PT STATES THAT SHE TOOK MED Ondansetron HCl (Ondansetron Inj 2 Mg/Ml Inj 2 Ml) 4 mg IV X1 ONE; Protocol Stop: 06/07/24 22:33 Last Admin: 06/07/24 22:49 Dose: 4 mg Documented By: LB Ondansetron HCl (Ondansetron Inj 2 Mg/Ml Inj 2 Ml) 4 mg IV X1 ONE; Protocol Stop: 06/07/24 23:17 Last Admin: 06/07/24 23:39 Dose: 4 mg Documented By: LB Ondansetron HCl (Ondansetron Inj 2 Mg/Ml Inj 2 Ml) 4 mg IV X1 ONE; Protocol Stop: 06/08/24 03:13 Last Admin: 06/08/24 03:25 Dose: 4 mg Documented By: LB Ondansetron HCl (Ondansetron Inj 2 Mg/Ml Inj 2 Ml) 4 mg IV X1 ONE; Protocol Stop: 06/08/24 08:57 Last Admin: 06/08/24 09:03 Dose: 4 mg Documented By: GM Ondansetron HCl (Ondansetron Inj 2 Mg/Ml Inj 2 Ml) 4 mg IV X1 ONE; Protocol Stop: 06/08/24 15:00 Last Admin: 06/08/24 15:07 Dose: 4 mg Documented By: MOIRA Ondansetron HCl (Ondansetron Inj 2 Mg/Ml Inj 2 Ml) 4 mg IV X1 ONE; Protocol Stop: 06/08/24 20:30 Last Admin: 06/08/24 20:36 Dose: 4 mg Documented By: MURPHY Ondansetron HCl (Ondansetron Inj 2 Mg/Ml Inj 2 Ml) 4 mg IV X1 ONE; Protocol Stop: 06/09/24 00:11 Last Admin: 06/09/24 00:18 Dose: 4 mg Documented By: MURPHY Ondansetron HCl (Ondansetron Inj 2 Mg/Ml Inj 2 Ml) 4 mg IV X1 ONE; Protocol Stop: 06/09/24 12:07 Last Admin: 06/09/24 12:21 Dose: 4 mg Documented By: SHAHRAM Pantoprazole Sodium (Pantoprazole Inj 40 Mg Vial) 40 mg IVP X1 ONE Stop: 06/08/24 03:22 Last Admin: 06/08/24 03:40 Dose: Not Given Documented By: COURTNEY Non-Admin Reason: Contraindicated As above Consultations Consultation(s) initiated? (list below): Yes Diagnosis Differential Diagnosis ED Complaint MDM: Patient is immunocompromise see MDM for a doctor who assumed care Most likely diagnosis given after review of the tests above:: Intractable nausea vomiting possibly related to gallbladder disease Admission Indicated Admission indicated?: indicated Explain why admission is indicated or not indicated:: Patient is immunocompromise need to be transferred to their facility which is [facility] see MDM for physician who assumed care. Admission Request Was there a request for admission?: No Disposition Plan Disposition Plan: Transfer Medical Decision Making Differential Diagnosis Differential Diagnosis: Patient is immunocompromise see MDM for a doctor who assumed care Lab Data 06/08/24 13:05 06/08/24 13:05 Labs: Lab Results 06/07/24 06/07/24 06/08/24 Range/Units 22:09 23:50 03:50 WBC 14.5 H 11.0 (3.6-11.0) Thou/mm3 RBC 5.05 4.24 (4.00-5.20) Miln/mm3 Hgb 13.7 11.5 L D (12.0-16.0) g/dL Hct 42.3 35.3 L (36.0-46.0) % MCV 84 83 (80-100) fL MCH 27.1 27.1 (25.0-35.0) pg MCHC 32.4 32.6 (31.0-37.0) g/dl RDW Std Deviation 40.6 40.7 (36.4-46.3) fL Plt Count 295 228 D (140-440) Thou/mm3 Neut % (Auto) 88 H 90 H (37-80) % Lymph % (Auto) 6 L 3 L (10-50) % [place] % (Auto) 4 5 (0-12) % Eos % (Auto) 2 1 (0-10) % Baso % (Auto) 0 1 (0-2.5) % Neut # (Auto) 12.7 H 9.9 H (1.8-7.7) Thou/mm3 Lymph # (Auto) 0.8 L 0.4 L (1.0-4.8) Thou/mm3 [place] # (Auto) 0.6 0.6 (0.0-0.8) Thou/mm3 Eos # (Auto) 0.2 0.1 (0.0-0.5) Thou/mm3 Baso # (Auto) 0.1 0.1 (0.0-0.2) Thou/mm3 Immature Gran # (Auto) 0.06 H 0.06 H (0.00-0.00) Thou/mm3 Absolute Nucleated RBC 0.00 0.00 (0.00-0.00) Thou/mm3 Immature Gran % 0 1 H (0-0) % Nucleated RBC % 0 0 (0) /100 WBC PT 11.8 (9.0-12.2) Seconds INR 1.1 (0.9-1.3) APTT 28.4 (22.0-36.0) Seconds Sodium 139 (136-145) mMol/L Potassium 4.4 (3.4-5.1) mMol/L Chloride 106 (98-107) mMol/L Carbon Dioxide 21.7 (20.0-31.0) mMol/L Anion Gap 11 (7-16) BUN 20 (9-23) mg/dL Creatinine 1.4 H (0.6-1.3) mg/dL Estim Creat Clear Calc 63.2 (>60) mL/min eGFR 49 L (60 - ) See Note BUN/Creatinine Ratio 14 (12-20) Ratio Glucose 102 (74-106) mg/dL Calculated Osmolality 280 (275-295) Lactic Acid (0.4-2.0) mMol/L Calcium 9.1 (8.3-10.6) mg/dL Corrected Calcium 9.1 (8.5-10.1) mg/dL Ionized Calcium (4.6-5.6) mg/dL Phosphorus (2.4-5.1) mg/dL Magnesium 1.7 (1.6-2.6) mg/dL Total Bilirubin 0.4 (0.3-1.2) mg/dL AST 23 (0-34) U/L ALT 26 (10-49) U/L Alkaline Phosphatase 117 H (46-116) U/L Troponin I < 0.020 (0.0-0.045) ng/mL B-Natriuretic Peptide 37 (0-100) pg/mL Total Protein 7.9 (5.7-8.2) gm/dL Albumin 4.6 (3.5-5.0) gm/dL Globulin 3.3 (2.3-3.5) gm/dL Albumin/Globulin Ratio 1.4 (1.2-2.2) Lipase 46 (12-53) U/L Ur Collection Type Clean Catch Urine Color Yellow (Lt Yel-Yel) Urine Clarity Clear (Clear/Hazy) Urine pH 6.0 (5.0-7.0) Ur Specific [place] 1.023 (1.001-1.035) Urine Protein 1+ A (Neg - Trace) Urine Glucose (UA) Negative (Negative) Urine Ketones Negative (Negative) Urine Blood 2+ A (Negative) Urine Nitrite Negative (Negative) Urine Bilirubin Negative (Negative) Urine Urobilinogen (Auto) Negative (0.0-1.0) mg/dL Ur Leukocyte Esterase Negative (Negative) Urine RBC 2 (0-3) /hpf Urine WBC 2 (0-5) /hpf Ur Squamous Epith Cells 1 (0-5) /hpf Urine Bacteria None (None) Urine HCG, Qual Negative Urine Opiates Screen Positive A (Negative) Urine Fentanyl Screen Negative (Negative) Ur Barbiturates Screen Negative (Negative) U Amphetamin/Meth Scrn Negative (Negative) U Benzodiazepines Scrn Negative (Negative) U Cocaine Metab Screen Negative (Negative) U Marijuana (THC) Screen Negative (Negative) Blood Type O Positive Antibody Screen NEGATIVE Blood Bank Wristband ID Yes 06/08/24 06/08/24 Range/Units 13:05 15:35 WBC 7.8 (3.6-11.0) Thou/mm3 RBC 3.89 L (4.00-5.20) Miln/mm3 Hgb 10.6 L (12.0-16.0) g/dL Hct 32.6 L (36.0-46.0) % MCV 84 (80-100) fL MCH 27.2 (25.0-35.0) pg MCHC 32.5 (31.0-37.0) g/dl RDW Std Deviation 41.8 (36.4-46.3) fL Plt Count 216 (140-440) Thou/mm3 Neut % (Auto) 85 H (37-80) % Lymph % (Auto) 6 L (10-50) % [place] % (Auto) 6 (0-12) % Eos % (Auto) 1 (0-10) % Baso % (Auto) 0 (0-2.5) % Neut # (Auto) 6.6 (1.8-7.7) Thou/mm3 Lymph # (Auto) 0.5 L (1.0-4.8) Thou/mm3 [place] # (Auto) 0.5 (0.0-0.8) Thou/mm3 Eos # (Auto) 0.1 (0.0-0.5) Thou/mm3 Baso # (Auto) 0.0 (0.0-0.2) Thou/mm3 Immature Gran # (Auto) 0.04 H (0.00-0.00) Thou/mm3 Absolute Nucleated RBC 0.00 (0.00-0.00) Thou/mm3 Immature Gran % 1 H (0-0) % Nucleated RBC % 0 (0) /100 WBC PT (9.0-12.2) Seconds INR (0.9-1.3) APTT (22.0-36.0) Seconds Sodium 143 (136-145) mMol/L Potassium 3.6 D (3.4-5.1) mMol/L Chloride 112 H (98-107) mMol/L Carbon Dioxide 22.3 (20.0-31.0) mMol/L Anion Gap 9 (7-16) BUN 19 (9-23) mg/dL Creatinine 1.2 (0.6-1.3) mg/dL Estim Creat Clear Calc 73.7 (>60) mL/min eGFR 59 L (60 - ) See Note BUN/Creatinine Ratio 16 (12-20) Ratio Glucose 93 (74-106) mg/dL Calculated Osmolality 287 (275-295) Lactic Acid 1.0 (0.4-2.0) mMol/L Calcium 6.7 L* D 7.3 L (8.3-10.6) mg/dL Corrected Calcium 7.3 L D (8.5-10.1) mg/dL Ionized Calcium 3.7 L (4.6-5.6) mg/dL Phosphorus 2.2 L (2.4-5.1) mg/dL Magnesium (1.6-2.6) mg/dL Total Bilirubin 0.4 (0.3-1.2) mg/dL AST 16 (0-34) U/L ALT 17 (10-49) U/L Alkaline Phosphatase 78 D (46-116) U/L Troponin I (0.0-0.045) ng/mL B-Natriuretic Peptide (0-100) pg/mL Total Protein 5.6 L (5.7-8.2) gm/dL Albumin 3.2 L D (3.5-5.0) gm/dL Globulin 2.4 (2.3-3.5) gm/dL Albumin/Globulin Ratio 1.3 (1.2-2.2) Lipase (12-53) U/L Ur Collection Type Urine Color (Lt Yel-Yel) Urine Clarity (Clear/Hazy) Urine pH (5.0-7.0) Ur Specific [place] (1.001-1.035) Urine Protein (Neg - Trace) Urine Glucose (UA) (Negative) Urine Ketones (Negative) Urine Blood (Negative) Urine Nitrite (Negative) Urine Bilirubin (Negative) Urine Urobilinogen (Auto) (0.0-1.0) mg/dL Ur Leukocyte Esterase (Negative) Urine RBC (0-3) /hpf Urine WBC (0-5) /hpf Ur Squamous Epith Cells (0-5) /hpf Urine Bacteria (None) Urine HCG, Qual Urine Opiates Screen (Negative) Urine Fentanyl Screen (Negative) Ur Barbiturates Screen (Negative) U Amphetamin/Meth Scrn (Negative) U Benzodiazepines Scrn (Negative) U Cocaine Metab Screen (Negative) U Marijuana (THC) Screen (Negative) Blood Type Antibody Screen Blood Bank Wristband ID Discharge Plan Plan Patient Disposition: Xfer Acute Care [facility] Needed for Transfer: Kidney transplant and ID Prescriptions/Referrals Prescriptions/Med Rec: No Action hydroxychloroquine 200 mg Tablet 200 mg PO BID Qty: 60 prednisone 5 mg Tablet 5 mg PO QDAY tacrolimus [Prograf] 1 mg Capsule 1 mg PO QAM Rx Instructions: take 4 capsules (1 mg each) omeprazole 20 mg Capsule,Delayed Release(Dr/Ec) 20 mg PO DAILY tacrolimus 1 mg Capsule 5 mg PO QPM Rx Instructions: take 5 capsules (1 mg each) mycophenolate sodium 180 mg Tablet,Delayed Release (Dr/Ec) See Rx Instructions PO BID Patient Comments: Changed 3 years ago per pt Rx Instructions: 180mg (2tabs) orally twice a day; prednisone 20 mg tablet See Rx Instructions PO QDAY Patient Comments: PER pt at noon daily Rx Instructions: 20 mg (2 tabs) orally daily; clonidine HCl 0.1 mg tablet 0.1 mg PO QDAY PRN (Reason: hypertensive emergency) Patient Comments: SBP > 140 magnesium 200 mg tablet See Rx Instructions PO QDAY Rx Instructions: 200 mg ( 2 Tabs) orally daily; fluconazole 200 mg tablet 600 mg PO DAILY Patient Comments: TAKE 3 TABLETS BY MOUTH DAILY cholecalciferol (vitamin D3) 1,250 mcg (50,000 unit) capsule 50,000 unit PO .WEEK Patient Comments: TAKE 1 CAPSULE BY MOUTH WEEKLY Rx Instructions: MONDAYS Referrals: Vic Trejo MD [Primary Care Provider] - In 1 week Problem List Clinical Impression: Intractable nausea and vomiting, Right upper quadrant abdominal pain, Gallstones, Immunocompromised, Kidney transplanted, Acute dehydration, Bilateral interstitial pneumonia Patient/Caregiver Discharge Instructions Print Language: Yoruba Stand Alone Forms: [facility] Award Info., Patient Portal Info Letter
[2024-06-07 21:07] VITALS: PULSE 90; RESP 18; O2SAT 98; BMI 32.1
[2024-06-07 21:13] VITALS: BP 133/93; PULSE 88; RESP 20; TEMP 36.6; O2SAT 100
--- NOTE | 2024-06-07 21:58 | PC.NURSE ---
initial contact with pt. Received report from Tai (woolen tester). Pt stated that chest pain started since 19:00, sharp and constant. Pain initially started in left chest radiating down to her stomach then mid-sternum area through back. (+) for n/v, SOB and diaphoresis. C. Monitor shows NSR without ventricular ectopy noted.
[2024-06-07 22:22] LABS: Basophils # (Auto) 0.1 Thou/mm3 (0.0-0.2); Basophils % (Auto) 0 % (0-2.5); Eosinophils # (Auto) 0.2 Thou/mm3 (0.0-0.5); Eosinophils % (Auto) 2 % (0-10); Hematocrit 42.3 % (36.0-46.0); Hemoglobin 13.7 g/dL (12.0-16.0); Immature Granulocytes % (Auto) 0 % (0-0); Immature Granulocytes Auto 0.06 Thou/mm3 (0.00-0.00); Lymphocytes # (Auto) 0.8 Thou/mm3 (1.0-4.8); Lymphocytes % (Auto) 6 % (10-50); Mean Corpuscular HGB Conc 32.4 g/dl (31.0-37.0); Mean Corpuscular Hemoglobin 27.1 pg (25.0-35.0); Mean Corpuscular Volume 84 fL (80-100); Monocytes # (Auto) 0.6 Thou/mm3 (0.0-0.8); Monocytes % (Auto) 4 % (0-12); Neutrophils # (Auto) 12.7 Thou/mm3 (1.8-7.7); Neutrophils % (Auto) 88 % (37-80); Nucleated Red Blood Cell % 0 /100 WBC (0); Platelet Count 295 Thou/mm3 (140-440); RDW Standard Deviation 40.6 fL (36.4-46.3); Red Blood Count 5.05 Miln/mm3 (4.00-5.20); White Blood Count 14.5 Thou/mm3 (3.6-11.0)
--- NOTE | 2024-06-07 22:28 | PC.NURSE ---
Addendum entered by Orlando Santoro RN 06/07/24 22:33: Thanh FIGUEROA informed of pt's c/o Original Note: Pt c/o epigastric pain, and nauseated, threw up mod amt of brownish gastric content.
[2024-06-07 22:34] LABS: INR 1.1 (0.9-1.3); Partial Thromboplastin Time 28.4 Seconds (22.0-36.0); Prothrombin Time 11.8 Seconds (9.0-12.2)
[2024-06-07] MEDS: ONDANSETRON INJ 2 MG/ML INJ 2 ML 4 MG IV ×2 (22:49→23:39)
[2024-06-07] MEDS: MORPHINE SULF INJ 10 MG/ML VIAL 4 MG IVP ×2 (22:51→23:41)
[2024-06-07 22:53] LABS: Alanine Aminotransferase 26 U/L (10-49); Albumin, Serum 4.6 gm/dL (3.5-5.0); Albumin/Globulin Ratio 1.4 (1.2-2.2); Alkaline Phosphatase 117 U/L (46-116); Anion Gap 11 (7-16); Aspartate Amino Transferase 23 U/L (0-34); BUN/Creatinine Ratio 14 Ratio (12-20); Bilirubin,Total 0.4 mg/dL (0.3-1.2); Blood Urea Nitrogen 20 mg/dL (9-23); Calcium 9.1 mg/dL (8.3-10.6); Calcium (Corrected) 9.1 mg/dL (8.5-10.1); Carbon Dioxide 21.7 mMol/L (20.0-31.0); Chloride 106 mMol/L (98-107); Creatinine (Component) 1.4 mg/dL (0.6-1.3); Estimated Creatinine Clearance 63.2 mL/min (>60); Globulin 3.3 gm/dL (2.3-3.5); Glucose 102 mg/dL (74-106); Lipase 46 U/L (12-53); Magnesium 1.7 mg/dL (1.6-2.6); Osmolality,Calculated 280 (275-295); Potassium 4.4 mMol/L (3.4-5.1); Sodium 139 mMol/L (136-145); Total Protein 7.9 gm/dL (5.7-8.2); eGFR 49 See Note
[2024-06-07 22:54] LABS: B-Type Natriuretic Peptide 37 pg/mL (0-100)
--- NOTE | 2024-06-07 22:58 | EDNOTE_ITS ---
Emergency Room Addendum Addendum Narrative: 2256: Care assumed from Thanh Benavides NP. Past medical, surgical, social and family history reviewed. Vitals and home medications reviewed. Results and treatment plan discussed. I will assume the care of the patient at this time and will follow the patient. Please refer to the emergency department record for history and examination from initial visit. Patient drank 3 containers of apple juice and had emetic episodes after each container. Patient was educated to not drink apple juice, but was persistent about it. Likely intractable nausea and vomiting. CT abdomen pelvis ordered to r/o ileus vs. SBO. 0600: Care signed out to Dr. Arnold (emergency physician). Past medical, surgical, social and family history reviewed. Vitals and home medications reviewed. Results and treatment plan discussed. They will assume the care of the patient at this time and will follow the patient, pending CT abdomen pelvis. RADIOLOGY RESULTS: [facility] Preliminary Report Draft Patient: ADDIE RODRIGUEZ Record#: [id number] Birthdate: 1985 Age/Sex: 39 / F Location: [facility] Attending Dr: Ordering Physician: Date of Service: Procedure(s): Accession Number(s): cc: ~ Right upper quadrant abdominal ultrasound. June 08, 2024 0009 hours Clinical history: Abdominal pain Findings: The evaluation is limited due to body habitus and pain. The liver measures 13.7 cm and is increased in echogenicity, evaluation limited due to body habitus. No intrahepatic biliary ductal dilatation. The main portal vein is patent and demonstrates hepatopetal flow. Hepatic veins are patent. Multiple calculi are noted within the gallbladder, without evidence of gallb ladder wall thickening or pericholecystic fluid. The common bile duct is normal in caliber at 3.3 mm, evaluation limited due to body habitus. The pancreas is obscured by overlying bowel gas, unremarkable to the extent visualized. The inferior vena cava is unremarkable to the extent visualized. Impression: Limited evaluation as described. Cholelithiasis. No evidence of wall thickening, pericholecystic fluid or biliary dilatation. Fatty infiltration of the liver. Report Electronically Signed By: Giancarlo Connelly 06/08/2024 1:46:37 AM [EST]
--- NOTE | 2024-06-07 23:15 | PC.NURSE ---
Dr. Julian in room seeing pt.
[2024-06-07 23:27] LABS: Troponin I < 0.020 ng/mL (0.0-0.045)
[2024-06-07] MEDS: SODIUM CHLORIDE 0.9% 1860 ML IV (23:38)
[2024-06-07 23:55] LABS: Collection Type, Urine Clean Catch
[2024-06-08] VITALS (22 sets, daily range): BP systolic 115–184; BP diastolic 72–130; PULSE 74–102; RESP 16–40; TEMP 36.6–36.9; O2SAT 88–100
--- NOTE | 2024-06-08 | XR_ITS ---
Examination: Abdomen sonogram, Limited Date and time of exam: June 08, 2024 0007 hrs. Indications: Right upper abdominal pain and tenderness today Technique: Real-time gee scale transabdominal sonographic images of the upper abdomen obtained. Findings: Multiple gallstones Gallbladder wall 0.1 cm Common bile duct 0.3 cm Pancreatic head 3.0 cm Liver 13.7 cm fatty infiltration no focal liver lesions Normal hepatopedal portal venous flow Patent IVC Impression: Cholelithiasis, negative for cholecystitis
[2024-06-08 00:13] LABS: Amphetamine/Methamp Scrn,U Negative (Negative); Barbiturate Screen,Urine Negative (Negative); Benzodiazepines Screen,Urine Negative (Negative); Benzoylecgonine Screen, Ur Negative (Negative); Fentanyl Screen,Urine Negative (Negative); Opiate Screen,Urine Positive (Negative); THC Screen,Urine Negative (Negative)
--- NOTE | 2024-06-08 00:13 | PC.NURSE ---
Bedside US on going.
[2024-06-08 00:37] LABS: Bilirubin,Urine Negative (Negative); Blood,Urine 2+ (Negative); Clarity,Urine Clear (Clear/Hazy); Color,Urine Yellow (Lt Yel-Yel); Glucose, Urine Negative (Negative); Ketones,Urine Negative (Negative); Leukocyte Esterase,Urine Negative (Negative); Nitrite,Urine Negative (Negative); Protein,Urine 1+ (Neg - Trace); RBC,Urine 2 /hpf (0-3); Specific Gravity,Urine 1.023 (1.001-1.035); Squamous Epithelial Cell,Urine 1 /hpf (0-5); Urobilinogen,Urine Negative mg/dL (0.0-1.0); WBC,Urine 2 /hpf (0-5)
--- NOTE | 2024-06-08 01:47 | PRELIM_ITS ---
Right upper quadrant abdominal ultrasound. June 08, 2024 0009 hours Clinical history: Abdominal pain Findings: The evaluation is limited due to body habitus and pain. The liver measures 13.7 cm and is increased in echogenicity, evaluation limited due to body habitus. No intrahepatic biliary ductal dilatation. The main portal vein is patent and demonstrates hepatopetal flow. Hepatic veins are patent. Multiple calculi are noted within the gallbladder, without evidence of gallbladder wall thickening or pericholecystic fluid. The common bile duct is normal in caliber at 3.3 mm, evaluation limited due to body habitus. The pancreas is obscured by overlying bowel gas, unremarkable to the extent visualized. The inferior vena cava is unremarkable to the extent visualized. Impression: Limited evaluation as described. Cholelithiasis. No evidence of wall thickening, pericholecystic fluid or biliary dilatation. Fatty infiltration of the liver. Report Electronically Signed By: Giancarlo Connelly 06/08/2024 1:46:37 AM [EST]
--- NOTE | 2024-06-08 03:20 | XR_ITS ---
Examination: CT abdomen and pelvis without contrast. Coronal 3-D reconstructions. Sagittal 2-D reconstructions. Date and time of exam:June 08, 2024 0523 hrs. Indications: Abdominal pain with vomiting beginning 1900 hrs. Last night, history renal failure with kidney transplant 3 years ago CTDI: vol (mGy): 18.7 DLP: (mGycm): 1155 Technique: Axial images of the abdomen have been obtained, 3 mm slice thickness Intravenous contrast material has not been administered. Low dose protocols were performed. One or more of the following dose reduction techniques were used; automated exposure control, adjustment of the mA and/or KV according to patient size, use of iterative reconstruction technique. Findings: Miliary nodular pattern in the lower lung zones No focal liver or splenic lesions Thickening of the lateral wall of the esophagus which may relate to reflux esophagitis No gallstones No pancreatic or adrenal mass End-stage atrophic inupiat kidneys, no hydronephrosis transplanted right pelvic kidney Normal appendix No bowel obstruction No diverticulitis Urinary bladder intact Moderate osteopenia Impression: No acute process in the abdomen or pelvis Miliary nodular pattern in the lung sands, differential would include active tuberculosis
[2024-06-08] MEDS: ONDANSETRON INJ 2 MG/ML INJ 2 ML 4 MG IV ×4 (03:25→20:36)
[2024-06-08] MEDS: MORPHINE SULF INJ 10 MG/ML VIAL 4 MG IVP ×3 (03:27→15:07)
--- NOTE | 2024-06-08 03:43 | PC.NURSE ---
Pt stated that she can't have protonix and reglan, She was told by her Doll Dresser.
[2024-06-08 04:09] LABS: Basophils # (Auto) 0.1 Thou/mm3 (0.0-0.2); Basophils % (Auto) 1 % (0-2.5); Eosinophils # (Auto) 0.1 Thou/mm3 (0.0-0.5); Eosinophils % (Auto) 1 % (0-10); Hematocrit 35.3 % (36.0-46.0); Hemoglobin 11.5 g/dL (12.0-16.0); Immature Granulocytes % (Auto) 1 % (0-0); Immature Granulocytes Auto 0.06 Thou/mm3 (0.00-0.00); Lymphocytes # (Auto) 0.4 Thou/mm3 (1.0-4.8); Lymphocytes % (Auto) 3 % (10-50); Mean Corpuscular HGB Conc 32.6 g/dl (31.0-37.0); Mean Corpuscular Hemoglobin 27.1 pg (25.0-35.0); Mean Corpuscular Volume 83 fL (80-100); Monocytes # (Auto) 0.6 Thou/mm3 (0.0-0.8); Monocytes % (Auto) 5 % (0-12); Neutrophils # (Auto) 9.9 Thou/mm3 (1.8-7.7); Neutrophils % (Auto) 90 % (37-80); Nucleated Red Blood Cell % 0 /100 WBC (0); Platelet Count 228 Thou/mm3 (140-440); RDW Standard Deviation 40.7 fL (36.4-46.3); Red Blood Count 4.24 Miln/mm3 (4.00-5.20)
[2024-06-08 05:09] LABS: HCG Qualitative,Urine Negative
--- NOTE | 2024-06-08 05:18 | PC.NURSE ---
To ct-scan via w/c.
--- NOTE | 2024-06-08 06:14 | PRELIM_ITS ---
CT scan of the abdomen and pelvis without intravenous contrast (axial sections with sagittal and coronal reformats) June 08, 2024 at 0523 hours Clinical History: 39yo with intractable vomiting Comparison: No prior study is available for comparison. Findings: Bibasilar streaky atelectasis is present. A small hiatal hernia is present. There is thickening of the wall of the distal esophagus, which may be due to reflux esophagitis or other inflammatory pathology. Fatty infiltration of the liver is noted. The gallbladder is distended without wall thickening or pericholecystic fluid . Both kidneys are atrophied . Transplanted kidney in the right lower quadrant . The pancreas, spleen and adrenals are unremarkable on this noncontrast study. No evidence of bowel obstruction. A moderate amount of fecal material is present in the colon. The appendix is within normal limits (coronal images 68- 79). There are multiple colonic diverticula without evidence of diverticulitis. .There is submucous fat in the terminal ileum wall suggesting chronic in flammation . There are multiple venous collaterals in the abdominal wall The urinary bladder is incompletely distended . The uterus is unremarkable. There are follicles in the right ovary . There is no free fluid or free air. The osseous structures are unremarkable. Well defined sclerotic lesion in T12 Impression: 1. No evidence of bowel obstruction, free air or abscess. 2. Thickening of the wall of the distal esophagus, which may be due to reflux esophagitis or other inflammatory pathology. 3. Other findings as described above. Report Electronically Signed By: Anmol Plummer 06/08/2024 6:13:40 AM [EST]
--- NOTE | 2024-06-08 07:03 | PD.EDADDENDU ---
Emergency Room Addendum <Matt Arnold MD - Last Filed: 06/08/24 18:54> Addendum Narrative: Patient was signed out 0600 hrs. patient has history of renal transplant is immunocompromise has history of lupus with a elevated white count of 14,000 had nausea vomiting for 1 day with epigastric pain. CT scan was ordered and pending at time of signout. Patient had a CT of the abdomen which showed abnormal lung tissue which was incidentally observed raising the issue of some pulmonary infection. The radiologist was quite concern for possible TB and when informed this is a immunocompromise patient and the previous CTs which clipped the lungs on the other abdominal CTs did not reveal this suggest some interval worsening. 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 On reevaluation patient continues to have right upper quadrant tenderness she has had multiple episode nausea vomiting on recheck at 1330 hrs. she is still vomiting prompting us to repeat labs I placed a call to [facility]. 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 We both agree this patient probably should go to higher level of care. I called our transfer nurse Jean and she will start working on the transfer. Repeat labs revealed electrolytes to be within normal limits BUN 19 which is similar to the previous 1 done creatinine is 1.2 apprising the calcium came back at 6.7 which is a significant drop from the previous 1 and of uncertain etiology organ to repeat that make sure is not some type of lab error. Lipase is negative. Note this patient's had pretty dark-colored urine as the vomit with a dark stuff presuming still on some level of dehydration so we gave another liter fluid bolus and 150 cc an hour and will recheck a lactic acid make sure this is not changing or worsening anyway. Because of the abnormal lung tissue interval worsening compared to her 2-year-old CT scan concerned that she has some type of immunocompromise atypical pneumonia going on like TB or worsening cocci in with intractable vomiting warrants admission and because of her renal transplant needs to go to [facility] who takes care of her. Note I spent probably 65 minutes on this patient reevaluating multiple times with summary of above and will make this a critical care note Critical care time 65 minutes in addition to the previous doctor's care No procedure required. The high probability of sudden, clinically significant deterioration in the patient's condition required the highest level of my preparedness to intervene urgently. The services I provided to this patient were to treat and/or prevent clinically significant deterioration. Services included the following: chart data review, reviewing nursing notes and/or old charts, documentation time, investment consultant collaboration regarding findings and treatment options, medication orders and management, direct patient care, vital sign assessments and ordering, interpreting and reviewing diagnostic studies and lab tests. Aggregate critical care time includes only time during which I was engaged in work directly related to the patient's care, as described above, whether at bedside or elsewhere in the Emergency Department. It did not include time spent performing other reported procedures or the services of residents, students, nurses or physician assistants. 1330: I spoke with the renal transplant person on-call Dr. Adan at [facility]. Discussed patients PMHx, HPI, ED course, exam findings, labs, and radiology results. He advised we transfer for intractable nausea and vomiting. 1338: I spoke with our transfer nurse Jean, aware of plan to transfer. I was informed sometime later in the afternoon that the [facility] has accept this patient in transfer but they have no beds. Patient had more pain and nausea and was given medicines peers to be comfortable intermittently at 1853 hrs. there is still no bed available and the patient signed over to Dr. Julian who is come on to assume care for this evening shift. She is familiar with this patient as she is the 1 that signed out to me earlier. Charge nurse and transfer nurse have been involved throughout the course. Note I reevaluate this patient at least 4 different times including reevaluate the nausea and pain. Notes she spiking no fevers and there is no evidence of infection at this time but she is immunocompromise and the right upper quadrant still appears to be a source of pain and the nausea vomiting presume is related to gallstones. Concerns for cholecystitis continue to loom. RADIOLOGY Ordering Physician: Date of Service: Procedure(s): Accession Number(s): cc: ~ CT scan of the abdomen and pelvis without intravenous contrast (axial sections with sagittal and coronal reformats) June 08, 2024 at 0523 hours Clinical History: 39yo with intractable vomiting Comparison: No prior study is available for comparison. Findings: Bibasilar streaky atelectasis is present. A small hiatal hernia is present. There is thickening of the wall of the distal esophagus, which may be due to reflux esophagitis or other inflammatory pathology. Fatty infiltration of the liver is noted. The gallbladder is distended without wall thickening or pericholecystic fluid . Both kidneys are atrophied . Transplanted kidney in the right lower quadrant . The pancreas, spleen and adrenals are unremarkable on this noncontrast study. No evidence of bowel obstruction. A moderate amount of fecal material is present in the colon. The appendix is within normal limits (coronal images 68-79). There are multiple colonic diverticula without evidence of diverticulitis. .There is submucous fat in the terminal ileum wall suggesting chronic inflammation . There are multiple venous collaterals in the abdominal wall The urinary bladder is incompletely distended . The uterus is unremarkable. There are follicles in the right ovary . There is no free fluid or free air. The osseous structures are unremarkable. Well defined sclerotic lesion in T12 Impression: 1. No evidence of bowel obstruction, free air or abscess. 2. Thickening of the wall of the distal esophagus, which may be due to reflux esophagitis or other inflammatory pathology. 3. Other findings as described above. Report Electronically Signed By: Anmol Plummer 06/08/2024 6:13:40 AM [EST] Dictated By: Signed By: Ordering Physician: Matt Arnold MD Date of Service: 06/08/24 Procedure(s): CT chest wo con Accession Number(s): [id number] cc: Vic Trejo MD; Matt Arnold MD; Cosmo Martinez MD~ Examination: CT chest, without intravenous contrast. Sagittal and coronal 2-D reconstructions. Exam date and time: June 08, 2024 0935 hrs. Indications: Immunocompromised patient with miliary nodular pattern in the lower lung zones on CT abdomen study this morning CTDI:vol (mGy) 22.3 DLP: (mGycm) 757 Technique: Multiple 3.0 mm axial sections of the chest to been obtained. Bone and lung density settings are obtained. Sagittal and coronal 2-D reconstructions have been obtained. Low dose protocols were performed. One or more of the following dose reduction techniques were used; automated exposure control, adjustment of the mA and/or KV according to patient size, use of iterative reconstruction technique. Findings: No thoracic aortic aneurysm dilatation Pulmonary artery segments are not enlarged Trace pericardial thickening No paratracheal tracheobronchial or bronchopulmonary adenopathy Dilated bronchi in the left upper lobe with left apical parenchymal disease for instance axial image 66 Numerous miliary nodules throughout both lungs No focal liver or splenic lesion Gallbladder wall appears thickened In stage [place] kidneys Impression: Dilated bronchi in the left upper lobe with left apical parenchymal disease Numerous miliary nodules throughout both lungs, differential would include tuberculosis, other pneumonic processes in an immunocompromised individual Dictated By: Cosmo Martinez MD Signed By: <Electronically signed by Cosmo Martinez MD in [place]> 06/08/24 1034 Ordering Physician: Matt Arnold MD Date of Service: 06/08/24 Procedure(s): XR chest 2V Accession Number(s): [id number] cc: Vic Trejo MD; Matt Arnold MD; Cosmo Martinez MD~ Examination: AP chest single view Technique: AP sitting portable chest single view Exam date and time: June 08, 2024 0926 hrs. Comparison April 02, 2024 Indications: Chest pain beginning 2 days ago Findings: Mild prominence cardiac contour Mild vascular congestion. No lobar pneumonia or pulmonary edema Impression: Mild vascular congestion Dictated By: Cosmo Martinez MD Signed By: <Electronically signed by Cosmo Martinez MD in OV> 06/08/24 1035 <Rika Lyons - Last Filed: 06/08/24 14:40> Addendum Narrative: Patient was signed out 0600 hrs. patient has history of renal transplant is immunocompromise has history of lupus with a elevated white count of 14,000 had nausea vomiting for 1 day with epigastric pain. CT scan was ordered and pending at time of signout. Patient had a CT of the abdomen which showed abnormal lung tissue which was incidentally observed raising the issue of some pulmonary infection. The radiologist was quite concern for possible TB and when informed this is a immunocompromise patient and the previous CTs which clipped the lungs on the other abdominal CTs did not reveal this suggest some interval worsening. 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 On reevaluation patient continues to have right upper quadrant tenderness she has had multiple episode nausea vomiting on recheck at 1330 hrs. she is still vomiting prompting us to repeat labs I placed a call to [facility]. 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 We both agree this patient probably should go to higher level of care. I called our transfer nurse Jean and she will start working on the transfer. Repeat labs revealed electrolytes to be within normal limits BUN 19 which is similar to the previous 1 done creatinine is 1.2 apprising the calcium came back at 6.7 which is a significant drop from the previous 1 and of uncertain etiology organ to repeat that make sure is not some type of lab error. Lipase is negative. Note this patient's had pretty dark-colored urine as the vomit with a dark stuff presuming still on some level of dehydration so we gave another liter fluid bolus and 150 cc an hour and will recheck a lactic acid make sure this is not changing or worsening anyway. Because of the abnormal lung tissue interval worsening compared to her 2-year-old CT scan concerned that she has some type of immunocompromise atypical pneumonia going on like TB or worsening cocci in with intractable vomiting warrants admission and because of her renal transplant needs to go to [facility] who takes care of her. Note I spent probably 65 minutes on this patient reevaluating multiple times with summary of above and will make this a critical care note Critical care time 65 minutes in addition to the previous doctor's care No procedure required. The high probability of sudden, clinically significant deterioration in the patient's condition required the highest level of my preparedness to intervene urgently. The services I provided to this patient were to treat and/or prevent clinically significant deterioration. Services included the following: chart data review, reviewing nursing notes and/or old charts, documentation time, investment consultant collaboration regarding findings and treatment options, medication orders and management, direct patient care, vital sign assessments and ordering, interpreting and reviewing diagnostic studies and lab tests. Aggregate critical care time includes only time during which I was engaged in work directly related to the patient's care, as described above, whether at bedside or elsewhere in the Emergency Department. It did not include time spent performing other reported procedures or the services of residents, students, nurses or physician assistants. 1330: I spoke with the renal transplant person on-call Dr. Adan at [facility]. Discussed patients PMHx, HPI, ED course, exam findings, labs, and radiology results. He advised we transfer for intractable nausea and vomiting. 1338: I spoke with our transfer nurse Jean, aware of plan to transfer. RADIOLOGY Ordering Physician: Date of Service: Procedure(s): Accession Number(s): cc: ~ CT scan of the abdomen and pelvis without intravenous contrast (axial sections with sagittal and coronal reformats) June 08, 2024 at 0523 hours Clinical History: 39yo with intractable vomiting Comparison: No prior study is available for comparison. Findings: Bibasilar streaky atelectasis is present. A small hiatal hernia is present. There is thickening of the wall of the distal esophagus, which may be due to reflux esophagitis or other inflammatory pathology. Fatty infiltration of the liver is noted. The gallbladder is distended without wall thickening or pericholecystic fluid . Both kidneys are atrophied . Transplanted kidney in the right lower quadrant . The pancreas, spleen and adrenals are unremarkable on this noncontrast study. No evidence of bowel obstruction. A moderate amount of fecal material is present in the colon. The appendix is within normal limits (coronal images 68-79). There are multiple colonic diverticula without evidence of diverticulitis. .There is submucous fat in the terminal ileum wall suggesting chronic inflammation . There are multiple venous collaterals in the abdominal wall The urinary bladder is incompletely distended . The uterus is unremarkable. There are follicles in the right ovary . There is no free fluid or free air. The osseous structures are unremarkable. Well defined sclerotic lesion in T12 Impression: 1. No evidence of bowel obstruction, free air or abscess. 2. Thickening of the wall of the distal esophagus, which may be due to reflux esophagitis or other inflammatory pathology. 3. Other findings as described above. Report Electronically Signed By: Anmol Plummer 06/08/2024 6:13:40 AM [EST] Dictated By: Signed By: Ordering Physician: Matt Arnold MD Date of Service: 06/08/24 Procedure(s): CT chest wo con Accession Number(s): [id number] cc: Vic Trejo MD; Matt Arnold MD; Cosmo Martinez MD~ Examination: CT chest, without intravenous contrast. Sagittal and coronal 2-D reconstructions. Exam date and time: June 08, 2024 0935 hrs. Indications: Immunocompromised patient with miliary nodular pattern in the lower lung zones on CT abdomen study this morning CTDI:vol (mGy) 22.3 DLP: (mGycm) 757 Technique: Multiple 3.0 mm axial sections of the chest to been obtained. Bone and lung density settings are obtained. Sagittal and coronal 2-D reconstructions have been obtained. Low dose protocols were performed. One or more of the following dose reduction techniques were used; automated exposure control, adjustment of the mA and/or KV according to patient size, use of iterative reconstruction technique. Findings: No thoracic aortic aneurysm dilatation Pulmonary artery segments are not enlarged Trace pericardial thickening No paratracheal tracheobronchial or bronchopulmonary adenopathy Dilated bronchi in the left upper lobe with left apical parenchymal disease for instance axial image 66 Numerous miliary nodules throughout both lungs No focal liver or splenic lesion Gallbladder wall appears thickened In stage [place] kidneys Impression: Dilated bronchi in the left upper lobe with left apical parenchymal disease Numerous miliary nodules throughout both lungs, differential would include tuberculosis, other pneumonic processes in an immunocompromised individual Dictated By: Cosmo Martinez MD Signed By: <Electronically signed by Cosmo Martinez MD in OV> 06/08/24 1034 Ordering Physician: Matt Arnold MD Date of Service: 06/08/24 Procedure(s): XR chest 2V Accession Number(s): [id number] cc: Vic Trejo MD; Matt Arnold MD; Cosmo Martinez MD~ Examination: AP chest single view Technique: AP sitting portable chest single view Exam date and time: June 08, 2024 0926 hrs. Comparison April 02, 2024 Indications: Chest pain beginning 2 days ago Findings: Mild prominence cardiac contour Mild vascular congestion. No lobar pneumonia or pulmonary edema Impression: Mild vascular congestion Dictated By: Cosmo Martinez MD Signed By: <Electronically signed by Cosmo Martinez MD in OV> 06/08/24 1035
--- NOTE | 2024-06-08 08:45 | XR_ITS ---
Examination: CT chest, without intravenous contrast. Sagittal and coronal 2-D reconstructions. Exam date and time: June 08, 2024 0935 hrs. Indications: Immunocompromised patient with miliary nodular pattern in the lower lung zones on CT abdomen study this morning CTDI:vol (mGy) 22.3 DLP: (mGycm) 757 Technique: Multiple 3.0 mm axial sections of the chest to been obtained. Bone and lung density settings are obtained. Sagittal and coronal 2-D reconstructions have been obtained. Low dose protocols were performed. One or more of the following dose reduction techniques were used; automated exposure control, adjustment of the mA and/or KV according to patient size, use of iterative reconstruction technique. Findings: No thoracic aortic aneurysm dilatation Pulmonary artery segments are not enlarged Trace pericardial thickening No paratracheal tracheobronchial or bronchopulmonary adenopathy Dilated bronchi in the left upper lobe with left apical parenchymal disease for instance axial image 66 Numerous miliary nodules throughout both lungs No focal liver or splenic lesion Gallbladder wall appears thickened In stage [place] kidneys Impression: Dilated bronchi in the left upper lobe with left apical parenchymal disease Numerous miliary nodules throughout both lungs, differential would include tuberculosis, other pneumonic processes in an immunocompromised individual
--- NOTE | 2024-06-08 08:46 | XR_ITS ---
Examination: AP chest single view Technique: AP sitting portable chest single view Exam date and time: June 08, 2024 0926 hrs. Comparison April 02, 2024 Indications: Chest pain beginning 2 days ago Findings: Mild prominence cardiac contour Mild vascular congestion. No lobar pneumonia or pulmonary edema Impression: Mild vascular congestion
[2024-06-08] MEDS: SODIUM CHLORIDE 0.9% 1000 ML 1,000 ML 999 ML IV (12:47)
[2024-06-08 13:15] LABS: Basophils % (Auto) 0 % (0-2.5); Eosinophils # (Auto) 0.1 Thou/mm3 (0.0-0.5); Eosinophils % (Auto) 1 % (0-10); Hematocrit 32.6 % (36.0-46.0); Hemoglobin 10.6 g/dL (12.0-16.0); Immature Granulocytes % (Auto) 1 % (0-0); Immature Granulocytes Auto 0.04 Thou/mm3 (0.00-0.00); Lymphocytes # (Auto) 0.5 Thou/mm3 (1.0-4.8); Lymphocytes % (Auto) 6 % (10-50); Mean Corpuscular HGB Conc 32.5 g/dl (31.0-37.0); Mean Corpuscular Hemoglobin 27.2 pg (25.0-35.0); Mean Corpuscular Volume 84 fL (80-100); Monocytes # (Auto) 0.5 Thou/mm3 (0.0-0.8); Monocytes % (Auto) 6 % (0-12); Neutrophils # (Auto) 6.6 Thou/mm3 (1.8-7.7); Neutrophils % (Auto) 85 % (37-80); Nucleated Red Blood Cell % 0 /100 WBC (0); Platelet Count 216 Thou/mm3 (140-440); RDW Standard Deviation 41.8 fL (36.4-46.3); Red Blood Count 3.89 Miln/mm3 (4.00-5.20); White Blood Count 7.8 Thou/mm3 (3.6-11.0)
[2024-06-08] MEDS: SODIUM CHLORIDE 0.9% 1000 ML 1,000 ML 150 ML IV ×2 (13:28→20:25)
[2024-06-08 13:37] LABS: Alanine Aminotransferase 17 U/L (10-49); Albumin, Serum 3.2 gm/dL (3.5-5.0); Albumin/Globulin Ratio 1.3 (1.2-2.2); Alkaline Phosphatase 78 U/L (46-116); Anion Gap 9 (7-16); Aspartate Amino Transferase 16 U/L (0-34); BUN/Creatinine Ratio 16 Ratio (12-20); Bilirubin,Total 0.4 mg/dL (0.3-1.2); Blood Urea Nitrogen 19 mg/dL (9-23); Calcium (Corrected) 7.3 mg/dL (8.5-10.1); Carbon Dioxide 22.3 mMol/L (20.0-31.0); Chloride 112 mMol/L (98-107); Creatinine (Component) 1.2 mg/dL (0.6-1.3); Estimated Creatinine Clearance 73.7 mL/min (>60); Globulin 2.4 gm/dL (2.3-3.5); Glucose 93 mg/dL (74-106); Osmolality,Calculated 287 (275-295); Potassium 3.6 mMol/L (3.4-5.1); Sodium 143 mMol/L (136-145); Total Protein 5.6 gm/dL (5.7-8.2); eGFR 59 See Note
[2024-06-08 13:54] LABS: Calcium 6.7 mg/dL (8.3-10.6)
--- NOTE | 2024-06-08 14:13 | PC.CC ---
Addendum entered by Fly Lopez RN 06/08/24 19:13: 1910 transfer packet is complete with CD inside including all signatures. Transfer packet given to ED noc charge nurse. Pending bed availability. Addendum entered by Fly Lopez RN 06/08/24 17:02: 1657 called [facility] TC, spoke to Pradeep for transfer status. He stated pt is accepted at [facility]. Accepted by Dr. Adan. Now pending bed availability. Addendum entered by Fly Lopez RN 06/08/24 14:25: 1425 images pushed over to [facility] via [facility]. Addendum entered by Fly Lopez RN 06/08/24 14:23: 1423 clinicals sent to [facility]. Original Note: 1359 called [facility], spoke to Jaleesa and initiated the transfer. She stated to fax clinicals and push images. [address] Arnold that pt needs to be transferred to [facility] for Intractable NV, Immunocompromised, R/O TB, hx of renal transplant. Dr. Whitten stated he already spoke to [facility] renal transplant Dr. Carr and he accepted the pt.
[2024-06-08 15:46] LABS: Calcium, Ionized 3.7 mg/dL (4.6-5.6)
[2024-06-08 16:09] LABS: Calcium 7.3 mg/dL (8.3-10.6); Phosphorous 2.2 mg/dL (2.4-5.1)
--- NOTE | 2024-06-08 16:10 | PC.NURSE ---
SPOKE TO [facility] FROM [facility] FOR TRANSFER.
--- NOTE | 2024-06-08 19:57 | PD.EDADDENDU ---
Emergency Room Addendum <Liudmila Landrum - Last Filed: 06/08/24 22:17> Addendum Narrative: 1800: Care assumed from Dr. Arnold, the previous shift emergency physician. Past medical, surgical, social and family history reviewed. Vitals and home medications reviewed. I will assume the care of the patient at this time, pending transfer. Please refer to the emergency department record for history and examination from initial visit.? Physical exam by me shows patient under no acute distress at this time. <Mar Trejo - Last Filed: 06/09/24 04:35> Addendum Narrative: 1800: Care assumed from Dr. Arnold, the previous shift emergency physician. Past medical, surgical, social and family history reviewed. Vitals and home medications reviewed. I will assume the care of the patient at this time, pending bed availability at [facility]. Please refer to the emergency department record for history and examination from initial visit.? Physical exam by me shows patient under no acute distress at this time. The patient was placed in ED observation care at 05/19/24 at 1800 hours. The patient was placed in ED observation care because of pending bed availability at [facility]. The patient's past medical history, social history, and family history were reviewed. The plan of care will include monitoring the patient. Patient has remained stable while under my care. 0600: Care signed out to Dr. Arnold (emergency physician). Past medical, surgical, social and family history reviewed. Vitals and home medications reviewed. Results and treatment plan discussed. They will assume the care of the patient at this time and will follow the patient, pending bed availability at [facility]. At this time, observation has ended. <Jocelyn Julian MD - Last Filed: 06/09/24 05:27> Addendum Narrative: 1800: Care assumed from Dr. Arnold, the previous shift emergency physician. Past medical, surgical, social and family history reviewed. Vitals and home medications reviewed. I will assume the care of the patient at this time, pending bed availability at [facility]. Please refer to the emergency department record for history and examination from initial visit.? Physical exam by me shows patient under no acute distress at this time. Patient has sitting up. She is able to eat something here in the emergency department without vomiting. Lungs are clear without respiratory accessory muscle use. Abdomen is nondistended. Skin shows no new rash. Neuro alert and oriented x 3, moving all extremities.- The patient was placed in ED observation care at 05/19/24 at 1800 hours. The patient was placed in ED observation care because of pending bed availability at [facility]. The patient's past medical history, social history, and family history were reviewed. The plan of care will include monitoring the patient. Patient has remained stable while under my care. 0600: Care signed out to Dr. Arnold (emergency physician). Past medical, surgical, social and family history reviewed. Vitals and home medications reviewed. Results and treatment plan discussed. They will assume the care of the patient at this time and will follow the patient, pending bed availability at [facility]. At this time, observation has ended.
[2024-06-08] MEDS: MG HYD/AL HYD/SIME (Maalox Reg) SUSP 30 ML UDC PO (20:25)
--- NOTE | 2024-06-08 20:38 | PC.NURSE ---
pt co heart burn and nausea. Meds given. will monitor resuslts.
[2024-06-09] VITALS (12 sets, daily range): BP systolic 138–171; BP diastolic 89–101; PULSE 79–92; RESP 12–20; TEMP 36.7–37; O2SAT 96–100
[2024-06-09] MEDS: ONDANSETRON INJ 2 MG/ML INJ 2 ML 4 MG IV ×2 (00:18→12:21)
[2024-06-09] MEDS: MORPHINE SULF INJ 10 MG/ML VIAL 4 MG IVP ×2 (00:19→12:22)
--- NOTE | 2024-06-09 00:30 | PC.NURSE ---
2200 pt took meds from home. Mycophenolate and Tacrolimus .
[2024-06-09] MEDS: SODIUM CHLORIDE 0.9% 1000 ML 1,000 ML 150 ML IV ×3 (02:35→17:23)
--- NOTE | 2024-06-09 04:37 | PC.NURSE ---
pt has slept very little. remains stable. has been up to void several times. no acute distress.
--- NOTE | 2024-06-09 09:20 | PC.NURSE ---
UPDATED BANG FROM [facility] ON PT. ANSWERED ALL QUESTIONS.
--- NOTE | 2024-06-09 11:23 | PD.EDADDENDU ---
Emergency Room Addendum <Rika Lyons - Last Filed: 06/09/24 11:31> Addendum Narrative: 0600: Care assumed from Dr. Will, the previous shift emergency physician. Past medical, surgical, social and family history reviewed. Vitals and home medications reviewed. Results and treatment plan discussed. The patient was placed in ED observation care at 0600 06/09/2024, pending bed availability at [facility] for transfer. Please refer to the emergency department record for history and examination.? While in ED observation the pt will have access to water, food, and personal hygiene. If the pt takes home medication(s), they will be continued in ED observation. <Matt Arnold MD - Last Filed: 06/09/24 16:42> Addendum Narrative: 0600: Care assumed from Dr. Will, the previous shift emergency physician. Past medical, surgical, social and family history reviewed. Vitals and home medications reviewed. Results and treatment plan discussed. The patient was placed in ED observation care at 0600 06/09/2024, pending bed availability at [facility] for transfer. Please refer to the emergency department record for history and examination.? While in ED observation the pt will have access to water, food, and personal hygiene. If the pt takes home medication(s), they will be continued in ED observation. Reevaluation of the patient this afternoon shows the patient still having pain in the right upper quadrant. She got 1 dose of pain medicine earlier today. She has had no more vomiting since 2100 hrs. since last night which is an improvement. Unfortunate [facility] has not provided a bed so the patient could be transferred as the original plan. Patient said vital signs are good there is no cough and no acute respiratory symptoms but as mentioned in yesterday's chart patient does have significant pulmonary findings concerning for either acute or chronic lung disease and consideration for TB and/or valley fever as we mentioned yesterday she is already being treated for valley fever. Our charge nurse was asked to call our transfer nurse and see what the delay is in the transfer is the patient's been sent here for 24 hours since the decision was made to transfer. The care will go to the oncoming doctor at 1800 hrs.
--- NOTE | 2024-06-09 16:35 | PC.CC ---
1634 called [facility], spoke to Reece for update. He stated still waiting for bed. I asked if there is a possibility today. He stated probably not but depends when the bed opens up.
--- NOTE | 2024-06-09 18:57 | EDNOTE_ITS ---
Emergency Room Addendum <Michelle Gutierrez - Last Filed: 06/09/24 21:52> Addendum Narrative: 1800 Care assumed from Matt Salazar MD. Past medical, surgical, social and family history reviewed. Vitals and home medications reviewed. Results and treatment plan discussed. I will assume the care of the patient at this time and will follow the patient, pending bed availability at [facility] for transfer. Please refer to the emergency department record for history and examination from initial visit. While in ED observation the pt will have access to water, food, and personal hygiene. If the pt takes home medication(s), they will be continued in ED observation. 1914 On evaluation, the patient does not exhibit any signs of vomiting today. She reports taking her medications as prescribed, including 0.5 mg of tacrolimus at night from her own supply. She denies any pain at this time, and no new concerns are noted. <Jocelyn Julian MD - Last Filed: 06/10/24 04:01> Addendum Narrative: 1800 Care assumed from Matt Salazar MD. Past medical, surgical, social and family history reviewed. Vitals and home medications reviewed. Results and treatment plan discussed. I will assume the care of the patient at this time and will follow the patient, pending bed availability at [facility] for transfer. Please refer to the emergency department record for history and examination from initial visit. While in ED observation the pt will have access to water, food, and personal hygiene. If the pt takes home medication(s), they will be continued in ED observation. 39-year-old female with a history of renal transplant, lupus, valley fever, who presented to our ER with epigastric pain. -06/08/24 she had an ultrasound that showed gallstones but no evidence of acute cholecystitis. -06/08/[address] which showed nodules in the lungs -06/08/24 CT of the chest, same changes with miliary nodules in the lungs -06/08/23 Dr. Adan, [facility] transplant team physician recommended and accepted the patient. As of yesterday [facility] is at capacity. 1914 On evaluation, the patient does not exhibit any signs of vomiting today. She reports taking her medications as prescribed, including 0.5 mg of tacrolimus at night from her own supply. She denies any pain at this time, and no new concerns are noted. 2120: Reviewed the patient medications and she states that she occasionally will take clonidine when she is not feeling well or when she is in the hospital and she is requesting her 0.1 mg dose. The nurse reviewed her immunosuppressive drugs and the patient has been taking her own medications and we verified the dosages. 0600: Care signed out to Dr. Otoole (emergency physician). Past medical, surgical, social and family history reviewed. Vitals and home medications reviewed. Results and treatment plan discussed. They will assume the care of the patient at this time and will follow the patient, pending bed availability at [facility]. 06/10/24 3:53 am MANNY - Mar Trejo <Mar Trejo - Last Filed: 06/10/24 03:53> Addendum Narrative: 1800 Care assumed from Matt Salazar MD. Past medical, surgical, social and family history reviewed. Vitals and home medications reviewed. Results and treatment plan discussed. I will assume the care of the patient at this time and will follow the patient, pending bed availability at [facility] for transfer. Please refer to the emergency department record for history and examination from initial visit. While in ED observation the pt will have access to water, food, and personal hygiene. If the pt takes home medication(s), they will be continued in ED observation. In summary this is a 39-year-old female with a history of renal transplant, lupus, valley fever, who presented to our ER with epigastric pain. Febrile she had an ultrasound that showed gallstones but no evidence of acute cholecystitis. A abdominal CT was done on which showed nodules in the lungs, and CT of the chest was recommended. The same changes with miliary nodules in the lungs? The case was discussed with the transplant team who did accept the patient however there is still been no bed. 1914 On evaluation, the patient does not exhibit any signs of vomiting today. She reports taking her medications as prescribed, including 0.5 mg of tacrolimus at night from her own supply. She denies any pain at this time, and no new concerns are noted. 2120: Reviewed the patient medications and she states that she occasionally will take clonidine when she is not feeling well or when she is in the hospital and she is requesting her 0.1 mg dose. The nurse reviewed her immunosuppressive drugs and the patient has been taking her own medications and we verified the dosages. 0600: Care signed out to Dr. Otoole, (emergency physician). Past medical, surgical, social and family history reviewed. Vitals and home medications reviewed. Results and treatment plan discussed. They will assume the care of the patient at this time and will follow the patient, pending bed availability at [facility]. Attestation <Michelle Gutierrez - Last Filed: 06/09/24 21:52> MD Attestation Scribe Attestation: I, Jose Gutierrez, am scribing for and in the presence of Dr. Julian. Provider Notation: Although this document has been carefully reviewed, there may still be some phonetic and other typographical errors. These errors are purely grammatical due to imperfections in the software program and should not be construed in any way to compromise the substance of the patient's medical care during this visit.
--- NOTE | 2024-06-09 21:03 | XR_ITS ---
Examination: AP chest single view Technique one AP upright portable chest single view Exam date and time: June 09, 2025 2144 hrs. Indications: Onset shortness of breath today Findings: Mild prominence left ventricle Ectatic thoracic aorta. No pneumonia or pulmonary edema Intact osseous structures Impression: No pneumonia or pulmonary edema
[2024-06-09] MEDS: MYCOPHENOLIC 180 MG PO (21:15)
--- NOTE | 2024-06-09 21:17 | PC.NURSE ---
patient not given tacrolimus 5mg. patient states she has been taking her own medicine here and she took it already and the dosage she is taking is 0.5mg
[2024-06-09] MEDS: cloNIDine HCL 0.1 MG TABLET PO (21:26)
[2024-06-10] VITALS (7 sets, daily range): BP systolic 111–158; BP diastolic 82–110; PULSE 73–87; RESP 15–18; TEMP 36.6–36.9; O2SAT 96–100
[2024-06-10] MEDS: SODIUM CHLORIDE 0.9% 1000 ML 1,000 ML 150 ML IV (00:07)
[2024-06-10] MEDS: MG HYD/AL HYD/SIME (Maalox Reg) SUSP 30 ML UDC PO (00:17)
--- NOTE | 2024-06-10 05:50 | PC.NURSE ---
SPOKE TO [facility] AND THEY STATE WE ARE STILL WAITING ON A BED AND TO CALL BACK LATE AFTERNOON
--- NOTE | 2024-06-10 08:57 | PC.CM ---
Addendum entered by Enedelia Lorenzo RN 06/10/24 15:27: I set up transport with [facility] for 1730. I will update charge nurse. Addendum entered by Enedelia Lorenzo RN 06/10/24 14:58: I received a call from Shantelle at [facility]. She states patient has been accepted to [facility]. [place]. Patient will be going to room 15 long bed 1537 bed 1. Accepting doctor is Dr. Clyde Adan. The number to call and give report is [phone]. I will call and set up transport. Original Note: I called and spoke to Reece at [facility] transfer center. He states they have patient on their list and we are still pending an open Med/surg bed. He is aware patient is still in our ED.
[2024-06-10] MEDS: MORPHINE SULF INJ 10 MG/ML VIAL 4 MG IVP ×2 (09:16→17:42)
--- NOTE | 2024-06-10 10:13 | EDNOTE_ITS ---
Emergency Room Addendum Addendum Narrative: 0600: Care assumed from Dr. Julian, the previous shift emergency physician. Past medical, surgical, social and family history reviewed. Vitals and home medications reviewed. I will assume the care of the patient at this time, pending transfer. Please refer to the emergency department record for history and examination from initial visit.? Physical exam by me shows patient under no acute distress at this time. I reviewed CT findings which is concerning for miliary nodular pattern in the lung sands. Discussed test HPI, PMHx, lab, radiology results and/or management with Dr. Clyde Adan from [facility]. Patient got a bed and accepted for transfer.
[2024-06-10] MEDS: MYCOPHENOLIC 180 MG PO (12:05)
[2024-06-10] MEDS: TACROLIMUS 1 MG CAPSULE (NON-FORMULARY) PO (12:07)
[2024-06-10] MEDS: predniSONE 5 MG TABLET PO (12:07)
[2024-06-10] MEDS: cloNIDine HCL 0.1 MG TABLET PO (12:31)
[2024-06-10] MEDS: HYDROXYCHLOROQUINE 200 MG TABLET PO (16:08)
--- NOTE | 2024-06-10 16:31 | PC.NURSE ---
I called [facility] and i spoke to Elia MOTA to whom i gave full report too.
[2024-06-10] MEDS: ONDANSETRON INJ 2 MG/ML INJ 2 ML 4 MG IV (17:41)
--- NOTE | 2024-06-10 17:45 | PC.NURSE ---
report given to ARUNA Miguel
== END 2024-06-10 18:00 | disposition short-term general hospital (02) ==
PROVIDERS: Emergency Medicine; Registered Nurse General Practice; Emergency Provider Emergency Medicine; PCP Family Medicine
DX: K80.20 Calculus of gallbladder without cholecystitis without obstruction (principal); Z94.0 Kidney transplant status; E86.0 Dehydration; J84.9 Interstitial pulmonary disease, unspecified; K76.0 Fatty (change of) liver, not elsewhere classified; D84.89 Other immunodeficiencies
CPT/HCPCS: 36415; 71045; 71046; 71250; 74176; 76705; 80053; 80307; 81001; 81025; 82310; 82330; 83605; 83690; 83735; 83880; 84100; 84484; 85025; 85610; 85730; 86850; 86900; 86901; 87400; 87811; 93005; 96361; 96374; 96375; 96376; 99291; J2270; J2405; J2470; J7030; J7507; J7512; A9270

== ENCOUNTER 2024-06-20 01:08 | Emergency (ER) | payer MEDICARE, MEDICAID, SELFPAY ==
[2024-06-20 01:13] VITALS: PULSE 93; RESP 18; O2SAT 98
--- NOTE | 2024-06-20 01:14 | EKG_ITS ---
[facility] Test Date: 2024-06-20 Pat Name: ADDIE RODRIGUEZ Department: Room: - Gender: Female [employer]: : 1985 Requested By: ED Temporary Provider Order Number: [id number] Reading MD: ED Temporary Provider Measurements Intervals [place] Rate: 93 P: 67 OR: 180 QRS: 16 QRSD: 76 T: 60 QT: 358 QTc: 447 Interpretive Statements SINUS RHYTHM LOW QRS VOLTAGE IN PRECORDIAL LEADS [QRS DEFLECTION < 1.0 mV IN CHEST LEADS] Compared to ECG 06/07/2024 21:21:25 No significant changes /store/S0/[id number].pdf
[2024-06-20 01:27] VITALS: BP 163/104; PULSE 89; RESP 18; TEMP 36.6; O2SAT 98; BMI 33.2
--- NOTE | 2024-06-20 01:28 | PD.EDRME ---
Rapid Medical Screening Exam RME Arrival date/time: 06/20/24 01:08 39 year old female present to Ed for c/o rapid hr, bodyaches, and chills I have greeted and performed a focused initial assessment of this patient. A comprehensive ED assessment and evaluation of the patient, analysis of all test results, and completion of the medical decision making process will be conducted by additional ED providers. Chief Complaint: Chest Pain Time Seen by Provider: 06/20/24 01:16
--- NOTE | 2024-06-20 01:34 | XR_ITS ---
Examination: PA lateral chest 2 views Technique: Upright AP lateral chest 2 views Exam date and time: June 20, 2024 0136 hrs. Comparison June 01, 2024 Indications: Onset chest pain today. Findings: Suspicious for early heart failure Mild enlargement left ventricle Prominent vascular congestion Suspicious for early basilar pulmonary edema Impression: Suspicious for early heart failure
[2024-06-20 02:00] LABS: Basophils # (Auto) 0.1 Thou/mm3 (0.0-0.2); Basophils % (Auto) 1 % (0-2.5); Eosinophils # (Auto) 0.2 Thou/mm3 (0.0-0.5); Eosinophils % (Auto) 2 % (0-10); Hematocrit 35.5 % (36.0-46.0); Hemoglobin 11.4 g/dL (12.0-16.0); Immature Granulocytes % (Auto) 1 % (0-0); Immature Granulocytes Auto 0.07 Thou/mm3 (0.00-0.00); Lymphocytes # (Auto) 1.6 Thou/mm3 (1.0-4.8); Lymphocytes % (Auto) 14 % (10-50); Mean Corpuscular HGB Conc 32.1 g/dl (31.0-37.0); Mean Corpuscular Hemoglobin 26.8 pg (25.0-35.0); Mean Corpuscular Volume 84 fL (80-100); Monocytes # (Auto) 0.9 Thou/mm3 (0.0-0.8); Monocytes % (Auto) 8 % (0-12); Neutrophils # (Auto) 8.5 Thou/mm3 (1.8-7.7); Neutrophils % (Auto) 75 % (37-80); Nucleated Red Blood Cell % 0 /100 WBC (0); Platelet Count 315 Thou/mm3 (140-440); RDW Standard Deviation 41.1 fL (36.4-46.3); Red Blood Count 4.25 Miln/mm3 (4.00-5.20); White Blood Count 11.4 Thou/mm3 (3.6-11.0)
[2024-06-20 02:22] LABS: Alanine Aminotransferase 22 U/L (10-49); Albumin, Serum 4.1 gm/dL (3.5-5.0); Albumin/Globulin Ratio 1.4 (1.2-2.2); Alkaline Phosphatase 120 U/L (46-116); Anion Gap 8 (7-16); Aspartate Amino Transferase 20 U/L (0-34); BUN/Creatinine Ratio 18 Ratio (12-20); Bilirubin,Total 0.2 mg/dL (0.3-1.2); Blood Urea Nitrogen 22 mg/dL (9-23); Calcium 8.8 mg/dL (8.3-10.6); Calcium (Corrected) 8.8 mg/dL (8.5-10.1); Carbon Dioxide 24.3 mMol/L (20.0-31.0); Chloride 107 mMol/L (98-107); Creatinine (Component) 1.2 mg/dL (0.6-1.3); Estimated Creatinine Clearance 72.5 mL/min (>60); Globulin 2.9 gm/dL (2.3-3.5); Glucose 97 mg/dL (74-106); Osmolality,Calculated 280 (275-295); Potassium 4.6 mMol/L (3.4-5.1); Sodium 139 mMol/L (136-145); Troponin I < 0.020 ng/mL (0.0-0.045); eGFR 59 See Note
[2024-06-20 02:25] LABS: B-Type Natriuretic Peptide 33 pg/mL (0-100)
--- NOTE | 2024-06-20 03:06 | PD.EDURI ---
Upper Respiratory Inf. RME/HPI General Chief Complaint: Chest Pain Stated Complaint: PALPITATIONS, NAUSEA Time Seen by Provider: 06/20/24 01:16 Arrival date/time: 06/20/24 01:08 39 year old female present to emergency room with c/o of heart palpitations, nausea, bodyaches and chills today SEVERITY: Symptoms are described as being severe with limitations on activities of daily living CONTEXT: The patient is unable to identify any inciting events. DURATION/TIMING: The symptoms started approximately [one day] ago and have been constant since and have been progressive getting worse. ASSOCIATED SYMPTOMS: The patient is unable to identify any other associated symptoms. MODIFYING FACTORS: The patient is unable to identify any alleviating or aggravating symptoms. PERTINENT ROS: no fevers, no cough, no pleuritic pain, no ripping or tearing sensations, denies any lower extremity edema and no unilateral swelling, no chest pain/shortness of breath no vomiting, diarrhea, no dizziness/headache no rash no loc/syncope episode no abd/back pain no dsyuria,urgency,frequency REVIEW OF SYSTEMS: See History of Present Illness - with the exception of those mentioned in the history of present illness, all other systems reviewed and reported as negative GENERAL: In general the patient is awake, interactive, in an emergency department gurney. HEAD/EYES/EARS/NOSE/THROAT: normo-cephalic, atraumatic, mucus membranes are moist, anicteric, palpebral conjunctiva is pink, trachea is midline. CARDIOVASCULAR: regular rate and regular rhythm, no murmurs, heart sounds are not distant, strong pulses in all four extremities that are equal and symmetric bilateral upper and lower extremities, normal capillary refill. CHEST/PULMONARY: normal chest rise and fall, good air movement, clear to auscultation bilaterally, normal inspiratory to expiratory ratios without evidence of respiratory distress. NECK: No midline/Paraspinal tenderness, no step off ROM/Strenght intact No Kernig and bruzinski sign. No trauma ABDOMEN: soft, not tender, no masses appreciated BACK: normal range of motion without pain. NEUROLOGICAL: cranio-facial features are symmetric, moves all four extremities equally without obvious limitations or weakness. EXTREMITY: no tenderness to palpation over the long bones or large joints of the bilateral upper and lower extremities, no joint swelling, no joint erythema, no signs of trauma, no unilateral leg swelling and no peripheral edema. SKIN: warm, dry, well-perfused, no jaundice, no rash, no telangiectasias or petechia. PSYCH: calm, cooperative, no evidence of psychosis or agitation RME / HPI RME / HPI Narrative: 06/20/24 01:08 39 year old female present to Ed for c/o rapid hr, bodyaches, and chills I have greeted and performed a focused initial assessment of this patient. A comprehensive ED assessment and evaluation of the patient, analysis of all test results, and completion of the medical decision making process will be conducted by additional ED providers. Related Data Home Medications ?Medication ?Instructions ?Recorded ?Confirmed hydroxychloroquine 200 mg tablet 200 mg PO BID ##60 12/21/16 06/08/24 mycophenolate sodium 180 mg See Rx Instructions PO BID 08/28/20 06/08/24 tablet,delayed release omeprazole 20 mg capsule,delayed 20 mg PO DAILY 08/28/20 06/08/24 release prednisone 5 mg tablet 5 mg PO QDAY 08/28/20 06/08/24 tacrolimus 1 mg capsule, 1 mg PO QAM 08/28/20 06/08/24 immediate-release (Prograf) cholecalciferol (vitamin D3) 1,250 50,000 unit PO .WEEK 06/08/24 06/09/24 mcg (50,000 unit) capsule clonidine HCl 0.1 mg tablet 0.1 mg PO QDAY PRN hypertensive 06/08/24 06/08/24 emergency fluconazole 200 mg tablet 600 mg PO DAILY 06/08/24 06/09/24 magnesium 200 mg tablet See Rx Instructions PO QDAY 06/08/24 06/08/24 prednisone 20 mg tablet See Rx Instructions PO QDAY 06/08/24 06/08/24 tacrolimus 0.5 mg capsule, 0.5 mg PO HS 06/10/24 06/10/24 immediate-release Previous Rx's ?Medication ?Instructions ?Recorded oseltamivir 75 mg capsule (Tamiflu) 75 mg PO Q12H 5 days #10 caps 06/20/24 Allergies Allergy/AdvReac Type Severity Reaction Status Date / Time Penicillins Allergy Severe RASH / Verified 06/07/24 21:06 SWELLING acetaminophen Allergy Rash Verified 06/07/24 21:06 Course Quality Measures none Orders Category Date Time Status Bedside Influenza A&B Antigen Test NOW Care 06/20/24 01:27 Completed EKG (ED ONLY) *Do not use* NOW Care 06/20/24 01:14 Completed EKG (ED Only) Stat Exams 06/20/24 01:14 Draft XR chest 2V Stat Exams 06/20/24 01:34 Taken BNP [B-Type Natriuretic Peptide] Stat Lab 06/20/24 01:53 Completed CBC Stat Lab 06/20/24 01:53 Completed CMP [Comprehensive Metabolic Panel] Stat Lab 06/20/24 01:53 Completed Troponin I Stat Lab 06/20/24 01:53 Completed Ondansetron Odt [Zofran Odt] Med 06/20/24 03:07 Discontinued 4 mg PO X1 ONE Oseltamivir [Tamiflu] Med 06/20/24 03:07 Discontinued 75 mg PO X1 ONE Vital Signs Vital signs: Vital Signs Temperature 97.9 F 06/20/24 01:27 Pulse Rate 89 06/20/24 01:27 Respiratory Rate 18 06/20/24 01:27 Blood Pressure 163/104 H 06/20/24 01:27 Pulse Oximetry (%) 98 06/20/24 01:27 Oxygen Delivery Method Room Air 06/20/24 01:27 Upper Respiratory Infection Patient data External records reviewed:: [facility] previous records Clinical information provided by:: patient Social determinants that could affect healthcare access:: none Patient has the following chronic illnesses:: as stated in chart How is presenting disease/condition affected by chronic disease/condition?: uneffected by Evaluation data The following diagnostics were reviewed and interpreted by me:: lab results, radiology exam(s) and EKG tracing(s) Lab and/or radiology exams considered but not ordered:: n/a Interpretation Summary: xray: nad cbc/cmp/trop wnl + flu a and bl first dose of tamiflu given prior to discharge Medications / Prescriptions Medications or Prescriptions considered but not ordered:: n/a Medication administrations:: Medication Administration History Discontinued Medications Ondansetron HCl (Ondansetron Odt 4 Mg Tabrap) 4 mg PO X1 ONE; Protocol Stop: 06/20/24 03:08 Last Admin: 06/20/24 03:34 Dose: 4 mg Documented By: AC Oseltamivir Phosphate (Oseltamivir 75 Mg Capsule) 75 mg PO X1 ONE Stop: 06/20/24 03:08 Last Admin: 06/20/24 03:34 Dose: 75 mg Documented By: AC as stated above Consultations Consultation(s) initiated? (list below): No Diagnosis Upper Respiratory Differential Diagnosis: upper respiratory infection, sinusitis, viral infection, bronchitis, influenza and other (influenza, covid) Most likely diagnosis given after review of the tests above:: flu Admission Indicated Admission indicated?: not indicated Admission Request Was there a request for admission?: No Disposition Plan Disposition Plan: Discharge Discharge Attestation Discharge Attestation: The patient and all family members were given an opportunity to ask questions and understood the discharge instructions. Discharge instructions specifically effects, indications for sooner follow up or return to the emergency department, and the expected course of current diagnosis. Patient condition: Stable Discharge Plan Plan Patient Disposition: HOME (Self Care) Health Concerns: Follow with PMD as directed Take tylenol or motrin as need Return to ED if sx worsen Prescriptions/Referrals Prescriptions/Med Rec: New oseltamivir [Tamiflu] 75 mg capsule 75 mg PO Q12H 5 Days Qty: 10 0RF No Action hydroxychloroquine 200 mg Tablet 200 mg PO BID Qty: 60 prednisone 5 mg Tablet 5 mg PO QDAY tacrolimus [Prograf] 1 mg Capsule 1 mg PO QAM Rx Instructions: take 4 capsules (1 mg each) omeprazole 20 mg Capsule,Delayed Release(Dr/Ec) 20 mg PO DAILY mycophenolate sodium 180 mg Tablet,Delayed Release (Dr/Ec) See Rx Instructions PO BID Patient Comments: Changed 3 years ago per pt Rx Instructions: 180mg (2tabs) orally twice a day; prednisone 20 mg tablet See Rx Instructions PO QDAY Patient Comments: PER pt at noon daily Rx Instructions: 20 mg (2 tabs) orally daily; clonidine HCl 0.1 mg tablet 0.1 mg PO QDAY PRN (Reason: hypertensive emergency) Patient Comments: SBP > 140 magnesium 200 mg tablet See Rx Instructions PO QDAY Rx Instructions: 200 mg ( 2 Tabs) orally daily; fluconazole 200 mg tablet 600 mg PO DAILY Patient Comments: TAKE 3 TABLETS BY MOUTH DAILY cholecalciferol (vitamin D3) 1,250 mcg (50,000 unit) capsule 50,000 unit PO .WEEK Patient Comments: TAKE 1 CAPSULE BY MOUTH WEEKLY Rx Instructions: MONDAYS tacrolimus 0.5 mg capsule 0.5 mg PO HS Patient Comments: TAKE ONE CAPSULE BY MOUTH TWICE DAILY Referrals: Vic Trejo MD [Primary Care Provider] - In 1 week Problem List Clinical Impression: Influenza Patient/Caregiver Discharge Instructions Education Materials: ED Influenza (Adult) Print Language: Lao Stand Alone Forms: [facility] Award Info., Patient Portal Info Letter
[2024-06-20] MEDS: OSELTAMIVIR 75 MG CAPSULE PO (03:34)
[2024-06-20] MEDS: ONDANSETRON ODT 4 MG TABRAP PO (03:34)
== END 2024-06-20 03:37 | disposition home or self-care (01) ==
PROVIDERS: Physician Assistant; Emergency Provider Emergency Medicine; PCP Family Medicine
DX: J11.1 Influenza due to unidentified influenza virus with other respiratory manifestations (principal)
CPT/HCPCS: 36415; 71046; 80053; 83880; 84484; 85025; 87400; 93005; 99283; Q0162; A9270

== ENCOUNTER 2024-06-26 19:12 | Emergency (ER) | payer MEDICARE, MEDICAID, SELFPAY ==
[2024-06-26 19:12] VITALS: BMI 33.0
--- NOTE | 2024-06-26 20:23 | PC.NURSE ---
pt did not answer when name was called from the lobby and was not found outside
--- NOTE | 2024-06-26 21:11 | PC.NURSE ---
N/A FROM [facility] X 2
--- NOTE | 2024-06-26 21:24 | PC.NURSE ---
N/A X 3 FROM [facility] ZAIDI
== END 2024-06-26 21:23 | disposition left against medical advice (07) ==
LOC: SERX 21:30
PROVIDERS: Emergency Provider Emergency Medicine
DX: Z53.21 Procedure and treatment not carried out due to patient leaving prior to being seen by health care provider (principal)

== ENCOUNTER 2024-06-26 22:11 | Emergency (ER) | payer MEDICARE, MEDICAID, SELFPAY ==
[2024-06-26 22:21] VITALS: BP 133/100; PULSE 124; RESP 18; TEMP 36.6; O2SAT 100
[2024-06-26 22:23] VITALS: BMI 32.1
--- NOTE | 2024-06-26 22:42 | PC.NURSE ---
Pt refused IN and OUT cath.
--- NOTE | 2024-06-26 22:53 | PD.EDADULT ---
ED General RME/HPI General Chief complaint: Nausea/Vomiting/Diarrhea Stated complaint: VOMITING ABDOMINAL PAIN Time Seen by Provider: 06/26/24 23:40 Arrival date/time: 06/26/24 22:11 RME / HPI RME / HPI narrative: Dr. Ballard?s Main ED Evaluation: 39yo female with a history of kidney transplant at [facility], Valley Fever, Lupus BIBA from home presents to the ED for complaints of N/V/D x 1 day. Patient states she was transferred to [facility] from our facility 2 weeks ago and has been home for the last one week. She states she had a fever yesterday, reporting she woke up today having epigastric pain, N/V/D, and felt dizzy. She states her symptoms have been persisting throughout the day, so she came in for evaluation. She denies any UTI symptoms or any other associated symptoms. Related Data Home Medications ?Medication ?Instructions ?Recorded ?Confirmed hydroxychloroquine 200 mg tablet 200 mg PO BID ##60 12/21/16 06/08/24 mycophenolate sodium 180 mg See Rx Instructions PO BID 08/28/20 06/08/24 tablet,delayed release omeprazole 20 mg capsule,delayed 20 mg PO DAILY 08/28/20 06/08/24 release prednisone 5 mg tablet 5 mg PO QDAY 08/28/20 06/08/24 tacrolimus 1 mg capsule, 1 mg PO QAM 08/28/20 06/08/24 immediate-release (Prograf) cholecalciferol (vitamin D3) 1,250 50,000 unit PO .WEEK 06/08/24 06/09/24 mcg (50,000 unit) capsule clonidine HCl 0.1 mg tablet 0.1 mg PO QDAY PRN hypertensive 06/08/24 06/08/24 emergency fluconazole 200 mg tablet 600 mg PO DAILY 06/08/24 06/09/24 magnesium 200 mg tablet See Rx Instructions PO QDAY 06/08/24 06/08/24 prednisone 20 mg tablet See Rx Instructions PO QDAY 06/08/24 06/08/24 tacrolimus 0.5 mg capsule, 0.5 mg PO HS 06/10/24 06/10/24 immediate-release Allergies Allergy/AdvReac Type Severity Reaction Status Date / Time Penicillins Allergy Severe RASH / Verified 06/07/24 21:06 SWELLING acetaminophen Allergy Rash Verified 06/07/24 21:06 Review of Systems Review of Systems Systems Reviewed: All systems reviewed, normal except as documented Past Medical History Past Medical History NEUROLOGIC: Positive Neurological Disorders and Seizures CARDIAC: Negative Cardiac Disorders, Hypercholesterolemia, Congestive Heart Failure, Edema or Hypertension RESPIRATORY: Positive Pulmonary Embolism; Negative Chronic Obstructive Pulmonary Disease (COPD) or Asthma GASTROINTESTINAL: Negative Gastrointestinal Disorders GENITOURINARY: Positive Genitourinary Disorders, Renal Disease and Dialysis MUSCULOSKELETAL: Negative Musculoskeletal Disorders ENDOCRINE: Positive Endocrine Disorders, Hypothyroidism and Systemic Lupus Erythematosus; Negative Diabetes Mellitus Type 1 or Diabetes Mellitus Type 2 HEMATOLOGIC: Positive Blood Disorders and Anemia; Negative Sickle Cell Disease OTHER HISTORY: Positive Blood Transfusions and Organ Transplant Family History FAMILY HISTORY: Positive Family Cardiac Disorders Surgical History SURGICAL: Positive Endocrine Surgery, Thyroidectomy, Abdominal Surgery, Nephrectomy and Organ Transplant Social History SMOKING STATUS: Never smoker SUBSTANCE USE: does not use ED Exam Narrative Physical exam: GENERAL APPEARANCE: alert and oriented x 4, well-developed, well-nourished, no acute distress VITALS: All vitals were reviewed and the pulse ox is 100% on room air, which is normal according to my interpretation. HEENT: Normocephalic, atraumatic; pupils equal, round, reactive to light; EOMI; mucous membranes pink, moist; oropharynx clear NECK: Supple LUNGS: CTABL; no wheezes, no rales, no rhonchi HEART: Regular rate, regular rhythm; normal S1, S2; no murmurs ABDOMEN: non distended; soft, [id number] RUQ and epigastric tenderness, + Nguyen sign, no guarding, no rebound; no masses, no organomegaly, no hernia BACK: no CVA tenderness EXTREMITIES: atraumatic; no edema NEUROLOGIC: awake; alert and oriented x4; cranial nerves II-XII grossly intact; no focal sensory or motor deficits PSYCHIATRIC: appropriate mood and affect SKIN: warm, dry, normal color; no rashes Course Course Course Narrative: CXR ordered for determining the etiology of fever. 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 Care 06/27/24 00:37 Active Continuous Pulse Oximetry STAT Care 06/27/24 00:38 Completed EKG (ED ONLY) *Do not use* NOW Care 06/27/24 00:37 Completed IV [Insert IV] NOW Care 06/27/24 00:24 Active In and Out Catheter X1 Care 06/27/24 00:37 Active Insert IV STAT Care 06/27/24 00:37 Active Miscellaneous Nursing Order NOW Care 06/27/24 01:24 Active NPO STAT Care 06/27/24 00:[address] abdomen pelvis wo con Stat Exams 06/27/24 01:22 Taken EKG (ED Only) Stat Exams 06/27/24 00:37 Draft US gall bladder Stat Exams 06/27/24 01:22 Taken XR chest 1V portable Stat Exams 06/27/24 00:39 Taken CBC Stat Lab 06/27/24 00:40 Completed Comprehensive Metabolic Panel Stat Lab 06/27/24 00:40 Completed HCG Qualitative,Urine Stat Lab 06/27/24 02:57 Completed Lipase Stat Lab 06/27/24 00:40 Completed Magnesium Stat Lab 06/27/24 00:40 Completed Urinalysis Stat Lab 06/27/24 02:57 Completed Morphine Inj Med 06/27/24 01:23 Active 2 mg IVP Q30M PRN Ondansetron Inj [Zofran Inj] Med 06/27/24 01:23 Discontinued 4 mg IV X1 ONE Sodium Chloride 0.9% 1000 ml [Ns] 1,000 ml Med 06/27/24 00:37 Discontinued IV 999 mls/hr Vital Signs Vital signs: Vital Signs Temperature 97.8 F 06/26/24 22:21 Pulse Rate 124 H 06/26/24 22:21 Respiratory Rate 18 06/26/24 22:21 Blood Pressure 133/100 H 06/26/24 22:21 Pulse Oximetry (%) 100 06/26/24 22:21 Oxygen Delivery Method Room Air 06/26/24 22:21 [facility] Patient data External records reviewed:: [facility] [place] (Per chart review, patient was seen here on 06/07/24 for (Intractable nausea and vomiting, Right upper quadrant abdominal pain, Gallstones, Immunocompromised, Kidney transplanted, Acute dehydration, Bilateral interstitial pneumonia) and was transferred to [facility].) Clinical information provided by:: patient Social determinants that could affect healthcare access:: none Patient has the following chronic illnesses:: kidney transplant, valley fever, lupus How is presenting disease/condition affected by chronic disease/condition?: exacerbated by Evaluation data The following diagnostics were reviewed and interpreted by me:: lab results, radiology exam(s) and EKG tracing(s) Lab and/or radiology exams considered but not ordered:: none Interpretation Summary: WBC count is elevated at 13.3, CMP is normal, Lipase is normal, UA is unremarkable, according to my interpretation. CXR shows normal cardiac silhouette, normal sharp diaphragmatic edge, no infiltrates, normal costophrenic angles, according to my interpretation. EKG done at 0108, NSR, rate of 90, normal axis, no ectopy, no acute ischemia, according to my interpretation.3 ------- Telerad Preliminary Report Draft Patient: ADDIE RODRIGUEZ Record#: [id number] Birthdate: 1985 Age/Sex: 39 / F Location: [facility] Attending Dr: Ordering Physician: Date of Service: Procedure(s): Accession Number(s): cc: ~ CT scan of the abdomen and pelvis without intravenous contrast (axial sections with sagittal and coronal reformats) June 27, 2024 at 0437 hours Clinical History: Mid abdominal pain. Comparison: None available at the time of this report. Findings: The lung bases are clear. The liver, gallbladder, pancreas, spleen and adrenals are unremarkable on this noncontrast study. Hypotrophic bilateral [place] kidneys. Transplanted kidney in the right iliac fossa, normal appearing. Diverticulosis of the colon. No evidence of bowel obstruction. No evidence of appendicitis. There is no mesenteric or retroperitoneal adenopathy. The urinary bladder is unremarkable. There is no free fluid or free air. The osseous structures are unremarkable. The uterus and ovaries are within normal limits. A few scattered air-fluid levels in the small bowel without dilation or wall thickening. Impression: Possible mild enteritis. Report Electronically Signed By: Daniele Sullivan 06/27/2024 5:17:27 AM Medications Medications considered but not ordered:: none Medication administrations:: Medication Administration History Morphine Sulfate (Morphine Sulf Inj 10 Mg/Ml Vial) 2 mg IVP Q30M PRN PRN Reason: abdominal pain Last Admin: 06/27/24 05:53 Dose: 2 mg Documented By: Admin: 06/27/24 02:33 Dose: 2 mg Documented By: LB Discontinued Medications Sodium Chloride (Ns) 1,000 mls @ 999 mls/hr IV .Q1H1M ONE Stop: 06/27/24 01:37 Last Infusion: 06/27/24 02:09 Dose: Infused Documented By: Admin: 06/27/24 01:08 Dose: 999 mls/hr Documented By: COURTNEY Ondansetron HCl (Ondansetron Inj 2 Mg/Ml Inj 2 Ml) 4 mg IV X1 ONE; Protocol Stop: 06/27/24 01:24 Last Admin: 06/27/24 01:39 Dose: 4 mg Documented By: COURTNEY see above Consultations Consultation(s) initiated? (list below): No Diagnosis Differential Diagnosis ED Complaint MDM: COVID, Influenza, viral syndrome, URI, cholelithiasis, cholecystitis Most likely diagnosis given after review of the tests above:: Other DDx: diverticulitis, colitis final dx pending at signout Admission Indicated Admission indicated?: not indicated Explain why admission is indicated or not indicated:: US gallbladder pending at signout. Admission Request Was there a request for admission?: No Disposition Plan Disposition Plan: other (specify) (Signed out to Dr. Arnold at 0600 pending US gallbladder.) Medical Decision Making MDM Narrative MDM Narrative: Scribe Attestation: 06/26/24 Mar Dalton am scribing for and in the presence of Dr. Ballard. Differential Diagnosis Differential Diagnosis: COVID, Influenza, viral syndrome, URI, cholelithiasis, cholecystitis Lab Data 06/27/24 00:40 06/27/24 00:40 Labs: Lab Results 06/27/24 06/27/24 Range/Units 00:40 02:57 WBC 13.3 H (3.6-11.0) Thou/mm3 RBC 4.38 (4.00-5.20) Miln/mm3 Hgb 11.9 L (12.0-16.0) g/dL Hct 36.3 (36.0-46.0) % MCV 83 (80-100) fL MCH 27.2 (25.0-35.0) pg MCHC 32.8 (31.0-37.0) g/dl RDW Std Deviation 41.0 (36.4-46.3) fL Plt Count 356 D (140-440) Thou/mm3 Neut % (Auto) 86 H (37-80) % Lymph % (Auto) 7 L (10-50) % [place] % (Auto) 5 (0-12) % Eos % (Auto) 1 (0-10) % Baso % (Auto) 0 (0-2.5) % Neut # (Auto) 11.4 H (1.8-7.7) Thou/mm3 Lymph # (Auto) 0.9 L (1.0-4.8) Thou/mm3 [place] # (Auto) 0.7 (0.0-0.8) Thou/mm3 Eos # (Auto) 0.1 (0.0-0.5) Thou/mm3 Baso # (Auto) 0.1 (0.0-0.2) Thou/mm3 Immature Gran # (Auto) 0.06 H (0.00-0.00) Thou/mm3 Absolute Nucleated RBC 0.00 (0.00-0.00) Thou/mm3 Immature Gran % 1 H (0-0) % Nucleated RBC % 0 (0) /100 WBC Sodium 139 (136-145) mMol/L Potassium 4.4 (3.4-5.1) mMol/L Chloride 107 (98-107) mMol/L Carbon Dioxide 21.2 (20.0-31.0) mMol/L Anion Gap 11 (7-16) BUN 24 H (9-23) mg/dL Creatinine 1.3 (0.6-1.3) mg/dL Estim Creat Clear Calc 68.0 (>60) mL/min eGFR 54 L (60 - ) See Note BUN/Creatinine Ratio 18 (12-20) Ratio Glucose 102 (74-106) mg/dL Calculated Osmolality 281 (275-295) Calcium 8.8 (8.3-10.6) mg/dL Corrected Calcium 8.8 (8.5-10.1) mg/dL Magnesium 1.4 L (1.6-2.6) mg/dL Total Bilirubin 0.3 (0.3-1.2) mg/dL AST 14 (0-34) U/L ALT 19 (10-49) U/L Alkaline Phosphatase 107 (46-116) U/L Total Protein 6.9 (5.7-8.2) gm/dL Albumin 4.0 (3.5-5.0) gm/dL Globulin 2.9 (2.3-3.5) gm/dL Albumin/Globulin Ratio 1.4 (1.2-2.2) Lipase 44 (12-53) U/L Ur Collection Type Catheter Urine Color Lt-Yellow (Lt Yel-Yel) Urine Clarity Clear (Clear/Hazy) Urine pH 6.0 (5.0-7.0) Ur Specific [place] 1.016 (1.001-1.035) Urine Protein Trace (Neg - Trace) Urine Glucose (UA) Negative (Negative) Urine Ketones Negative (Negative) Urine Blood Negative (Negative) Urine Nitrite Negative (Negative) Urine Bilirubin Negative (Negative) Urine Urobilinogen (Auto) Negative (0.0-1.0) mg/dL Ur Leukocyte Esterase Negative (Negative) Urine RBC 1 (0-3) /hpf Urine WBC < 1 (0-5) /hpf Ur Squamous Epith Cells 2 (0-5) /hpf Urine Bacteria Rare (None) Urine HCG, Qual Negative Discharge Plan Prescriptions/Referrals Prescriptions/Med Rec: No Action hydroxychloroquine 200 mg Tablet 200 mg PO BID Qty: 60 prednisone 5 mg Tablet 5 mg PO QDAY tacrolimus [Prograf] 1 mg Capsule 1 mg PO QAM Rx Instructions: take 4 capsules (1 mg each) omeprazole 20 mg Capsule,Delayed Release(Dr/Ec) 20 mg PO DAILY mycophenolate sodium 180 mg Tablet,Delayed Release (Dr/Ec) See Rx Instructions PO BID Patient Comments: Changed 3 years ago per pt Rx Instructions: 180mg (2tabs) orally twice a day; prednisone 20 mg tablet See Rx Instructions PO QDAY Patient Comments: PER pt at noon daily Rx Instructions: 20 mg (2 tabs) orally daily; clonidine HCl 0.1 mg tablet 0.1 mg PO QDAY PRN (Reason: hypertensive emergency) Patient Comments: SBP > 140 magnesium 200 mg tablet See Rx Instructions PO QDAY Rx Instructions: 200 mg ( 2 Tabs) orally daily; fluconazole 200 mg tablet 600 mg PO DAILY Patient Comments: TAKE 3 TABLETS BY MOUTH DAILY cholecalciferol (vitamin D3) 1,250 mcg (50,000 unit) capsule 50,000 unit PO .WEEK Patient Comments: TAKE 1 CAPSULE BY MOUTH WEEKLY Rx Instructions: MONDAYS tacrolimus 0.5 mg capsule 0.5 mg PO HS Patient Comments: TAKE ONE CAPSULE BY MOUTH TWICE DAILY Referrals: Vic Trejo MD [Primary Care Provider] - In 1 week Problem List Clinical Impression: Abdominal pain Patient/Caregiver Discharge Instructions Print Language: Croatian
[2024-06-26 23:22] VITALS: PULSE 107; RESP 19; O2SAT 96
[2024-06-27] VITALS (10 sets, daily range): BP systolic 108–148; BP diastolic 70–98; PULSE 78–94; RESP 13–19; TEMP 36.4–36.8; O2SAT 94–99
--- NOTE | 2024-06-27 00:37 | EKG_ITS ---
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
--- NOTE | 2024-06-27 00:39 | XR_ITS ---
Examination: AP chest single view Technique one AP portable upright chest single view Exam date and time: June 27, 2024 0006 hrs. Comparison: 2024 Indications: Coughing today. Findings: Basilar bronchitis versus early bronchopneumonia Normal heart size Mild osteopenia Impression: Basilar bronchitis versus early bronchopneumonia, clinical correlation advised
[2024-06-27 00:58] LABS: Basophils # (Auto) 0.1 Thou/mm3 (0.0-0.2); Basophils % (Auto) 0 % (0-2.5); Eosinophils # (Auto) 0.1 Thou/mm3 (0.0-0.5); Eosinophils % (Auto) 1 % (0-10); Hematocrit 36.3 % (36.0-46.0); Hemoglobin 11.9 g/dL (12.0-16.0); Immature Granulocytes % (Auto) 1 % (0-0); Immature Granulocytes Auto 0.06 Thou/mm3 (0.00-0.00); Lymphocytes # (Auto) 0.9 Thou/mm3 (1.0-4.8); Lymphocytes % (Auto) 7 % (10-50); Mean Corpuscular HGB Conc 32.8 g/dl (31.0-37.0); Mean Corpuscular Hemoglobin 27.2 pg (25.0-35.0); Mean Corpuscular Volume 83 fL (80-100); Monocytes # (Auto) 0.7 Thou/mm3 (0.0-0.8); Monocytes % (Auto) 5 % (0-12); Neutrophils # (Auto) 11.4 Thou/mm3 (1.8-7.7); Neutrophils % (Auto) 86 % (37-80); Nucleated Red Blood Cell % 0 /100 WBC (0); Platelet Count 356 Thou/mm3 (140-440); Red Blood Count 4.38 Miln/mm3 (4.00-5.20); White Blood Count 13.3 Thou/mm3 (3.6-11.0)
[2024-06-27] MEDS: SODIUM CHLORIDE 0.9% 1000 ML 1,000 ML 999 ML IV (01:08)
[2024-06-27 01:19] LABS: Alanine Aminotransferase 19 U/L (10-49); Albumin/Globulin Ratio 1.4 (1.2-2.2); Alkaline Phosphatase 107 U/L (46-116); Anion Gap 11 (7-16); Aspartate Amino Transferase 14 U/L (0-34); BUN/Creatinine Ratio 18 Ratio (12-20); Bilirubin,Total 0.3 mg/dL (0.3-1.2); Blood Urea Nitrogen 24 mg/dL (9-23); Calcium 8.8 mg/dL (8.3-10.6); Calcium (Corrected) 8.8 mg/dL (8.5-10.1); Carbon Dioxide 21.2 mMol/L (20.0-31.0); Chloride 107 mMol/L (98-107); Creatinine (Component) 1.3 mg/dL (0.6-1.3); Globulin 2.9 gm/dL (2.3-3.5); Glucose 102 mg/dL (74-106); Lipase 44 U/L (12-53); Magnesium 1.4 mg/dL (1.6-2.6); Osmolality,Calculated 281 (275-295); Potassium 4.4 mMol/L (3.4-5.1); Sodium 139 mMol/L (136-145); Total Protein 6.9 gm/dL (5.7-8.2); eGFR 54 See Note
--- NOTE | 2024-06-27 01:22 | XR_ITS ---
Examination: CT abdomen and pelvis without contrast. Coronal 3-D reconstructions. Sagittal 2-D reconstructions. Date and time of exam:June 27, 2024 at 0437 hrs. Indications: Abdominal pain and vomiting today, renal failure patient, post renal transplant CTDI: vol (mGy): 19 DLP: (mGycm): 1156 Technique: Axial images of the abdomen have been obtained, 3 mm slice thickness Intravenous contrast material has not been administered. Low dose protocols were performed. One or more of the following dose reduction techniques were used; automated exposure control, adjustment of the mA and/or KV according to patient size, use of iterative reconstruction technique. Findings: No focal liver or splenic lesions No gallstones No pancreatic mass. End-stage atrophic [place] kidneys Aorta normal size Normal appendix. No bowel obstruction Right transplant kidney demonstrates no hydronephrosis No pelvic mass Urinary bladder intact Osseous structures intact Impression: No acute process in the abdomen or pelvis Again noted miliary nodular pattern in the lower lung zones, noted on the June 08, 2024 exam
--- NOTE | 2024-06-27 01:22 | XR_ITS ---
Examination: Abdomen sonogram, Limited Date and time of exam: June 27, 2024 at 0211 hrs. Indications: Right upper abdominal pain and tenderness vomiting today Technique: Real-time gee scale transabdominal sonographic images of the upper abdomen obtained. Findings: Gallbladder sludge, tiny gallstones Gallbladder wall 0.3 cm Common bile duct 0.5 cm Pancreas obscured by bowel gas Liver 15.3 cm no liver lesions Normal hepatopedal portal venous flow Patent IVC Impression: Cholelithiasis, negative for cholecystitis
[2024-06-27] MEDS: ONDANSETRON INJ 2 MG/ML INJ 2 ML 4 MG IV (01:39)
--- NOTE | 2024-06-27 02:29 | PC.NURSE ---
Called pharmacy to verified Morphine.
[2024-06-27] MEDS: MORPHINE SULF INJ 10 MG/ML VIAL 2 MG IVP ×2 (02:33→05:53)
[2024-06-27 03:08] LABS: Collection Type, Urine Catheter
[2024-06-27 03:36] LABS: Bacteria,Urine Rare; Bilirubin,Urine Negative (Negative); Blood,Urine Negative (Negative); Clarity,Urine Clear (Clear/Hazy); Color,Urine Lt-Yellow (Lt Yel-Yel); Glucose, Urine Negative (Negative); Ketones,Urine Negative (Negative); Leukocyte Esterase,Urine Negative (Negative); Nitrite,Urine Negative (Negative); Protein,Urine Trace (Neg - Trace); RBC,Urine 1 /hpf (0-3); Specific Gravity,Urine 1.016 (1.001-1.035); Squamous Epithelial Cell,Urine 2 /hpf (0-5); Urobilinogen,Urine Negative mg/dL (0.0-1.0); WBC,Urine < 1 /hpf (0-5)
[2024-06-27 03:37] LABS: HCG Qualitative,Urine Negative
--- NOTE | 2024-06-27 05:17 | PRELIM_ITS ---
CT scan of the abdomen and pelvis without intravenous contrast (axial sections with sagittal and coronal reformats) June 27, 2024 at 0437 hours Clinical History: Mid abdominal pain. Comparison: None available at the time of this report. Findings: The lung bases are clear. The liver, gallbladder, pancreas, spleen and adrenals are unremarkable on this noncontrast study. Hypotrophic bilateral [place] kidneys. Transplanted kidney in the right iliac fossa, normal appearing. Diverticulosis of the colon. No evidence of bowel obstruction. No evidence of appendicitis. There is no mesenteric or retroperitoneal adenopathy. The urinary bladder is unremarkable. There is no free fluid or free air. The osseous structures are unremarkable. The uterus and ovaries are within normal limits. A few scattered air-fluid levels in the small bowel without dilation or wall thickening. Impression: Possible mild enteritis. Report Electronically Signed By: Daniele Sullivan 06/27/2024 5:17:27 AM [EST]
--- NOTE | 2024-06-27 09:00 | EDNOTE_ITS ---
Emergency Room Addendum <Rika Lyons - Last Filed: 06/27/24 13:32> Addendum Narrative: 0600: Care assumed from Dr. Ballard, the previous shift emergency physician. Past medical, surgical, social and family history reviewed. Vitals and home medications reviewed. I will assume the care of the patient at this time, pending GB ultrasound. Please refer to the emergency department record for history and examination from initial visit.?The following addendum documentation note is intended to reflect any pending information, findings, or radiology results not included in the patient?s initial chart. RADIOLOGY Ordering Physician: Jt Ballard MD Date of Service: 06/27/24 Procedure(s): US gall bladder Accession Number(s): [id number] cc: Vic Trejo MD; Cosmo Martinez MD; Jt Ballard MD~ Examination: Abdomen sonogram, Limited Date and time of exam: June 27, 2024 at 0211 hrs. Indications: Right upper abdominal pain and tenderness vomiting today Technique: Real-time gee scale transabdominal sonographic images of the upper abdomen obtained. Findings: Gallbladder sludge, tiny gallstones Gallbladder wall 0.3 cm Common bile duct 0.5 cm Pancreas obscured by bowel gas Liver 15.3 cm no liver lesions Normal hepatopedal portal venous flow Patent IVC Impression: Cholelithiasis, negative for cholecystitis Dictated By: Cosmo Martinez MD Signed By: <Electronically signed by Cosmo Martinez MD in OV>06/27/24 0750 _ <Matt Arnold MD - Last Filed: 06/27/24 13:47> Addendum Narrative: 0600: Care assumed from Dr. Ballard, the previous shift emergency physician. Past medical, surgical, social and family history reviewed. Vitals and home medications reviewed. I will assume the care of the patient at this time, pending GB ultrasound. Please refer to the emergency department record for history and examination from initial visit.?The following addendum documentation note is intended to reflect any pending information, findings, or radiology results not included in the patient?s initial chart. Due to high volumes this patient's care was delayed where I was able to do a full reevaluation at 1300 hrs. patient is laying comfortably she states she has not vomited since 6 AM so no nausea vomiting episodes for the last 7 hours notes she is a renal transplant patient followed by [facility]. I will refer to my previous note where she was here several weeks ago where we initiated transfer to evaluate her for her abnormal CT of her chest where they confirmed that her cocci has reactivated. Patient is alert awake she has no nausea at my reevaluation at 1300 hrs. O2 sats are 98 9 9% on room air. She is hungry feels good and wants to go home. She states she has been coughing for 4 days and bringing up some green sputum. Medical workup was initiated last night there reveals a white count of 13.3 thousand hemoglobin 11.9. Sodium 139 potassium 4.4 chloride 107 CO2 21.2 anion gap is 11 BUN is 24 creatinine is 1.3. Transaminases bilirubin within normal limits. Lipase is negative. Urine came back with 1 red cell and no white cells were seen. Urine test came back negative. Ultrasound of the gallbladder reveals gallstones which were present before. CT of the abdomen and pelvis same nodular pattern was seen in the chest again. There is no acute process in the abdominal cavity plain chest x-ray reports a questionable lower lobe infiltrates.. Though the patient is white count is within normal limits and actually present yet she is coughing up green sputum so I will connect with her transplant physician on-call to discuss treatment for questionable pneumonia. I spoke with the transplant doctor on-call for [facility] and discussed the case at great length recommendation Alles is probably amenable if any pneumonia we will start her on azithromycin. She should have Zofran for her nausea vomiting and a PPI like omeprazole. I went back in room and discussed this with the patient patient is already got Zofran and omeprazole prescribed and has been using it. She also took her Tamiflu a week ago when she had influenza. So we will give her some azithromycin for 5 days and she knows to follow-up and get her RADIOLOGY Ordering Physician: Jt Ballard MD Date of Service: 06/27/24 Procedure(s): US gall bladder Accession Number(s): [id number] cc: Vic Trejo MD; Cosmo Martinez MD; Jt Ballard MD~ Examination: Abdomen sonogram, Limited Date and time of exam: June 27, 2024 at 0211 hrs. Indications: Right upper abdominal pain and tenderness vomiting today Technique: Real-time gee scale transabdominal sonographic images of the upper abdomen obtained. Findings: Gallbladder sludge, tiny gallstones Gallbladder wall 0.3 cm Common bile duct 0.5 cm Pancreas obscured by bowel gas Liver 15.3 cm no liver lesions Normal hepatopedal portal venous flow Patent IVC Impression: Cholelithiasis, negative for cholecystitis Dictated By: Cosmo Martinez MD Signed By: <Electronically signed by Cosmo Martinez MD in OV>06/27/24 0750
--- NOTE | 2024-06-27 13:50 | PD.EDADDENDU ---
Emergency Room Addendum Addendum Narrative: I forgot to mention the previous addendum that this patient is allergic to penicillin and a renal doctor is aware that azithromycin can cause QT prolongation I felt this would be the best choice for the patient. Prescription was sent to the pharmacy and a starting dose will be given here in the emergency department
[2024-06-27] MEDS: AZITHROMYCIN 250 MG TABLET 500 MG PO (14:00)
== END 2024-06-27 15:04 | disposition home or self-care (01) ==
PROVIDERS: Emergency Medicine; Emergency Provider Emergency Medicine; PCP Family Medicine
DX: K80.20 Calculus of gallbladder without cholecystitis without obstruction (principal); R05.9 Cough, unspecified; Z94.0 Kidney transplant status; Z88.0 Allergy status to penicillin
CPT/HCPCS: 36415; 71045; 74176; 76705; 80053; 81001; 81025; 83690; 83735; 85025; 93005; 96361; 96374; 96375; 96376; 99284; J2270; J2405; J7030; A9270

== ENCOUNTER 2024-08-14 18:15 | Emergency (ER) | payer MEDICARE, MEDICAID, SELFPAY ==
[2024-08-14 18:19] VITALS: BP 118/84; PULSE 96; RESP 19; TEMP 36.4; O2SAT 97
--- NOTE | 2024-08-14 18:31 | EKG_ITS ---
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
[2024-08-14 19:47] LABS: Basophils # (Auto) 0.1 Thou/mm3 (0.0-0.2); Basophils % (Auto) 1 % (0-2.5); Eosinophils # (Auto) 0.1 Thou/mm3 (0.0-0.5); Eosinophils % (Auto) 1 % (0-10); Hematocrit 33.5 % (36.0-46.0); Hemoglobin 10.9 g/dL (12.0-16.0); Immature Granulocytes % (Auto) 1 % (0-0); Immature Granulocytes Auto 0.04 Thou/mm3 (0.00-0.00); Lymphocytes % (Auto) 12 % (10-50); Mean Corpuscular HGB Conc 32.5 g/dl (31.0-37.0); Mean Corpuscular Hemoglobin 27.5 pg (25.0-35.0); Mean Corpuscular Volume 85 fL (80-100); Monocytes # (Auto) 0.6 Thou/mm3 (0.0-0.8); Monocytes % (Auto) 8 % (0-12); Neutrophils # (Auto) 6.1 Thou/mm3 (1.8-7.7); Neutrophils % (Auto) 78 % (37-80); Nucleated Red Blood Cell % 0 /100 WBC (0); Platelet Count 237 Thou/mm3 (140-440); RDW Standard Deviation 42.6 fL (36.4-46.3); Red Blood Count 3.96 Miln/mm3 (4.00-5.20); White Blood Count 7.9 Thou/mm3 (3.6-11.0)
[2024-08-14 19:51] VITALS: PULSE 86; O2SAT 99; BMI 32.1
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
[2024-08-14 20:03] LABS: B-Type Natriuretic Peptide 43 pg/mL (0-100)
[2024-08-14 20:07] LABS: Alanine Aminotransferase 18 U/L (10-49); Albumin, Serum 4.1 gm/dL (3.5-5.0); Albumin/Globulin Ratio 1.6 (1.2-2.2); Alkaline Phosphatase 102 U/L (46-116); Anion Gap 7 (7-16); Aspartate Amino Transferase 20 U/L (0-34); BUN/Creatinine Ratio 15 Ratio (12-20); Bilirubin,Total 0.3 mg/dL (0.3-1.2); Blood Urea Nitrogen 21 mg/dL (9-23); Calcium 8.4 mg/dL (8.3-10.6); Calcium (Corrected) 8.4 mg/dL (8.5-10.1); Carbon Dioxide 22.8 mMol/L (20.0-31.0); Chloride 105 mMol/L (98-107); Creatinine (Component) 1.4 mg/dL (0.6-1.3); Estimated Creatinine Clearance 63.2 mL/min (>60); Globulin 2.6 gm/dL (2.3-3.5); Glucose 103 mg/dL (74-106); Lipase 42 U/L (12-53); Magnesium 1.9 mg/dL (1.6-2.6); Osmolality,Calculated 273 (275-295); Potassium 4.3 mMol/L (3.4-5.1); Sodium 135 mMol/L (136-145); Total Protein 6.7 gm/dL (5.7-8.2); Troponin I < 0.020 ng/mL (0.0-0.045); eGFR 49 See Note
[2024-08-14 20:11] VITALS: BP 133/92; PULSE 77; RESP 16; TEMP 36.7; O2SAT 99
[2024-08-14] MEDS: SODIUM CHLORIDE 0.9% 500 ML 500 ML 999 ML IV (20:20)
[2024-08-14 20:22] VITALS: BP 133/87; BP 138/94; BP 141/101; PULSE 72; PULSE 73; PULSE 83
[2024-08-14 20:49] LABS: INR 1.1 (0.9-1.3); Partial Thromboplastin Time 28.2 Seconds (22.0-36.0); Prothrombin Time 11.5 Seconds (9.0-12.2)
[2024-08-14 21:03] VITALS: PULSE 77
--- NOTE | 2024-08-14 21:42 | PC.NURSE ---
dr winchester made aware pt refused ibuprofen, stating it interacts with one of the medications she takes
[2024-08-14 22:35] LABS: Collection Type, Urine Clean Catch; RBC,Urine 0 /hpf (0-3)
[2024-08-14 22:44] LABS: Bilirubin,Urine Negative (Negative); Blood,Urine Negative (Negative); Clarity,Urine Clear (Clear/Hazy); Color,Urine Colorless (Lt Yel-Yel); Culture Indicated,Urine Not Indicated; Glucose, Urine Negative (Negative); Ketones,Urine Negative (Negative); Leukocyte Esterase,Urine Negative (Negative); Nitrite,Urine Negative (Negative); Protein,Urine Negative (Neg - Trace); Specific Gravity,Urine 1.006 (1.001-1.035); Squamous Epithelial Cell,Urine < 1 /hpf (0-5); Urobilinogen,Urine Negative mg/dL (0.0-1.0); WBC,Urine 1 /hpf (0-5)
[2024-08-14 22:45] LABS: HCG Qualitative,Urine Negative
[2024-08-14 22:50] VITALS: BP 132/102; PULSE 82; RESP 16; TEMP 36.8; O2SAT 100
== END 2024-08-14 23:23 | disposition home or self-care (01) ==
PROVIDERS: Emergency Provider Emergency Medicine; PCP Family Medicine
DX: R07.2 Precordial pain (principal); R42 Dizziness and giddiness; R09.89 Other specified symptoms and signs involving the circulatory and respiratory systems; N18.6 End stage renal disease; M32.9 Systemic lupus erythematosus, unspecified; Z99.2 Dependence on renal dialysis; Z94.0 Kidney transplant status
CPT/HCPCS: 36415; 71045; 74176; 80053; 81001; 81025; 83690; 83735; 83880; 84484; 85025; 85610; 85730; 93005; 96360; 99284; J7040

== ENCOUNTER 2024-09-20 21:28 | Emergency (ER) | payer MEDICARE, MEDICAID, SELFPAY ==
[2024-09-20 21:30] VITALS: PULSE 90; RESP 18; O2SAT 100; BMI 33.0
[2024-09-20 22:09] VITALS: BP 136/101; PULSE 83; RESP 18; TEMP 36.6; O2SAT 96
--- NOTE | 2024-09-20 22:43 | PD.EDRME ---
Rapid Medical Screening Exam RME Arrival date/time: 09/20/24 21:28 Chief Complaint: General Adult/Misc Complain Time Seen by Provider: 09/20/24 22:13 Vital signs: Vital Signs Temperature 97.9 F 09/20/24 22:09 Pulse Rate 83 09/20/24 22:09 Respiratory Rate 18 09/20/24 22:09 Blood Pressure 136/101 H 09/20/24 22:09 Pulse Oximetry (%) 96 09/20/24 22:09 Oxygen Delivery Method Room Air 09/20/24 22:09 Pulse ox room air is 96% Vital signs reviewed by provider: Yes RME Narrative: Patient who is positive for lupus, kidney transplant and valley fever presents with a complaint of night sweats, body aches, neck pain as well as nausea without vomiting. Also complains of shortness of breath.
[2024-09-20 23:17] LABS: Basophils # (Auto) 0.1 Thou/mm3 (0.0-0.2); Basophils % (Auto) 1 % (0-2.5); Eosinophils # (Auto) 0.3 Thou/mm3 (0.0-0.5); Eosinophils % (Auto) 4 % (0-10); Hematocrit 34.7 % (36.0-46.0); Hemoglobin 11.6 g/dL (12.0-16.0); Immature Granulocytes % (Auto) 1 % (0-0); Immature Granulocytes Auto 0.05 Thou/mm3 (0.00-0.00); Lymphocytes # (Auto) 1.3 Thou/mm3 (1.0-4.8); Lymphocytes % (Auto) 17 % (10-50); Mean Corpuscular HGB Conc 33.4 g/dl (31.0-37.0); Mean Corpuscular Hemoglobin 27.4 pg (25.0-35.0); Mean Corpuscular Volume 82 fL (80-100); Monocytes # (Auto) 0.6 Thou/mm3 (0.0-0.8); Monocytes % (Auto) 7 % (0-12); Neutrophils # (Auto) 5.6 Thou/mm3 (1.8-7.7); Neutrophils % (Auto) 71 % (37-80); Nucleated Red Blood Cell % 0 /100 WBC (0); Platelet Count 239 Thou/mm3 (140-440); RDW Standard Deviation 43.2 fL (36.4-46.3); Red Blood Count 4.24 Miln/mm3 (4.00-5.20); White Blood Count 7.9 Thou/mm3 (3.6-11.0)
[2024-09-20] MEDS: MORPHINE SULF INJ 10 MG/ML VIAL 5 MG IM (23:28)
[2024-09-20 23:29] LABS: Alanine Aminotransferase 22 U/L (10-49); Albumin/Globulin Ratio 1.6 (1.2-2.2); Alkaline Phosphatase 128 U/L (46-116); Anion Gap 11 (7-16); BUN/Creatinine Ratio 16 Ratio (12-20); Bilirubin,Total 0.2 mg/dL (0.3-1.2); Blood Urea Nitrogen 22 mg/dL (9-23); C-Reactive Protein 0.8 mg/dL (0.0-0.9); Carbon Dioxide 22.8 mMol/L (20.0-31.0); Chloride 105 mMol/L (98-107); Creatinine (Component) 1.4 mg/dL (0.6-1.3); Globulin 2.5 gm/dL (2.3-3.5); Glucose 98 mg/dL (74-106); Osmolality,Calculated 280 (275-295); Sodium 139 mMol/L (136-145); Total Protein 6.5 gm/dL (5.7-8.2); eGFR 49 See Note
[2024-09-20 23:33] LABS: Collection Type, Urine Clean Catch; RBC,Urine 0 /hpf (0-3); WBC,Urine 0 /hpf (0-5)
[2024-09-20 23:46] LABS: Bilirubin,Urine Negative (Negative); Blood,Urine Negative (Negative); Clarity,Urine Clear (Clear/Hazy); Color,Urine Colorless (Lt Yel-Yel); Culture Indicated,Urine Not Indicated; Glucose, Urine Negative (Negative); Ketones,Urine Negative (Negative); Leukocyte Esterase,Urine Negative (Negative); Nitrite,Urine Negative (Negative); Protein,Urine Negative (Neg - Trace); Specific Gravity,Urine 1.008 (1.001-1.035); Squamous Epithelial Cell,Urine 1 /hpf (0-5); Urobilinogen,Urine Negative mg/dL (0.0-1.0)
--- NOTE | 2024-09-21 01:14 | PD.EDADULT ---
ED General RME/HPI General Chief complaint: General Adult/Misc Complain Stated complaint: NUMBNESS/TINGLING GENERAL BODY HX OF LUMPS Time Seen by Provider: 09/20/24 22:13 Source: patient Arrival date/time: 09/20/24 21:28 Mode of arrival: ambulatory Limitations: no limitations RME / HPI RME / HPI narrative: Patient who is positive for lupus, kidney transplant and valley fever presents with a complaint of night sweats, body aches, neck pain as well as nausea without vomiting. Also complains of shortness of breath. Onset (ago): week(s) (1 week) Related Data Home Medications ?Medication ?Instructions ?Recorded ?Confirmed hydroxychloroquine 200 mg tablet 200 mg PO BID ##60 12/21/16 06/08/24 mycophenolate sodium 180 mg See Rx Instructions PO BID 08/28/20 06/08/24 tablet,delayed release omeprazole 20 mg capsule,delayed 20 mg PO DAILY 08/28/20 06/08/24 release prednisone 5 mg tablet 5 mg PO QDAY 08/28/20 06/08/24 tacrolimus 1 mg capsule, 1 mg PO QAM 08/28/20 06/08/24 immediate-release (Prograf) cholecalciferol (vitamin D3) 1,250 50,000 unit PO .WEEK 06/08/24 06/09/24 mcg (50,000 unit) capsule clonidine HCl 0.1 mg tablet 0.1 mg PO QDAY PRN hypertensive 06/08/24 06/08/24 emergency fluconazole 200 mg tablet 600 mg PO DAILY 06/08/24 06/09/24 magnesium 200 mg tablet See Rx Instructions PO QDAY 06/08/24 06/08/24 prednisone 20 mg tablet See Rx Instructions PO QDAY 06/08/24 06/08/24 tacrolimus 0.5 mg capsule, 0.5 mg PO HS 06/10/24 06/10/24 immediate-release Allergies Allergy/AdvReac Type Severity Reaction Status Date / Time Penicillins Allergy Severe RASH / Verified 06/07/24 21:06 SWELLING acetaminophen Allergy Rash Verified 06/07/24 21:06 Review of Systems Constitutional Constitutional: Reports system reviewed and no additional complaints, except as documented Eyes Eyes: Reports system reviewed and no additional complaints, except as documented, Denies dry eyes, Denies exophthalmos and Reports floaters Cardiovascular Cardiovascular: Denies chest pain with activity and Denies claudication ED Exam General Limitations: Present no limitations General appearance: Present alert and in no apparent distress Head Head exam: Present atraumatic Eye Eye exam: Present normal appearance, PERRL and EOMI ENT ENT exam: Present normal exam, normal oropharynx and mucous membranes moist Neck Neck exam: Present normal inspection, full ROM and trachea midline Chest Chest inspection: Present normal inspection and symmetric chest wall rise Respiratory Respiratory exam: Present normal lung sounds bilaterally Cardiovascular Cardiovascular exam: Present regular rate, normal rhythm and normal heart sounds Abdominal Exam Abdominal exam: Present soft and normal bowel sounds Extremities Exam Extremities exam: Present normal inspection and full ROM Back Exam Back exam: Present normal inspection and full ROM Neurological Exam Neurological exam: Present alert and oriented X3 Psychiatric Psychiatric exam: Present normal affect and normal mood Skin Skin exam: Present warm, dry, intact and normal color Course Course Course Narrative: Patient will have a CBC, CMP, CRP, UA. Quality Measures none Orders Category Date Time Status CBC Stat Lab 09/20/24 23:05 Completed CMP [Comprehensive Metabolic Panel] Stat Lab 09/20/24 23:05 Completed CRP [C-Reactive Protein] Stat Lab 09/20/24 23:05 Completed UA, C/S IF [Urinalysis, C/S if Indicated] Stat Lab 09/20/24 23:24 Completed Ketorolac Inj [Toradol Inj] Med 09/20/24 22:54 Discontinued 30 mg IM X1 ONE Morphine Inj Med 09/20/24 23:08 Discontinued 5 mg IM X1 ONE Done Vital Signs Vital signs: Vital Signs Temperature 97.9 F 09/20/24 22:09 Pulse Rate 83 09/20/24 22:09 Respiratory Rate 18 09/20/24 22:09 Blood Pressure 136/101 H 09/20/24 22:09 Pulse Oximetry (%) 96 09/20/24 22:09 Oxygen Delivery Method Room Air 09/20/24 22:09 Pulse ox room air is 96% Discharge Plan Plan Patient Disposition: HOME (Self Care) Discharge Disposition comment: Patient discharged home in no apparent distress Patient condition on transfer: Stable Prescriptions/Referrals Prescriptions/Med Rec: No Action hydroxychloroquine 200 mg Tablet 200 mg PO BID Qty: 60 prednisone 5 mg Tablet 5 mg PO QDAY tacrolimus [Prograf] 1 mg Capsule 1 mg PO QAM Rx Instructions: take 4 capsules (1 mg each) omeprazole 20 mg Capsule,Delayed Release(Dr/Ec) 20 mg PO DAILY mycophenolate sodium 180 mg Tablet,Delayed Release (Dr/Ec) See Rx Instructions PO BID Patient Comments: Changed 3 years ago per pt Rx Instructions: 180mg (2tabs) orally twice a day; prednisone 20 mg tablet See Rx Instructions PO QDAY Patient Comments: PER pt at noon daily Rx Instructions: 20 mg (2 tabs) orally daily; clonidine HCl 0.1 mg tablet 0.1 mg PO QDAY PRN (Reason: hypertensive emergency) Patient Comments: SBP > 140 magnesium 200 mg tablet See Rx Instructions PO QDAY Rx Instructions: 200 mg ( 2 Tabs) orally daily; fluconazole 200 mg tablet 600 mg PO DAILY Patient Comments: TAKE 3 TABLETS BY MOUTH DAILY cholecalciferol (vitamin D3) 1,250 mcg (50,000 unit) capsule 50,000 unit PO .WEEK Patient Comments: TAKE 1 CAPSULE BY MOUTH WEEKLY Rx Instructions: MONDAYS tacrolimus 0.5 mg capsule 0.5 mg PO HS Patient Comments: TAKE ONE CAPSULE BY MOUTH TWICE DAILY Referrals: Vic Trejo MD [Primary Care Provider] - In 1 week Problem List Clinical Impression: Lupus, Kidney replaced by transplant Patient/Caregiver Discharge Instructions Discharge Activity: activity as tolerated Print Language: Polish Stand Alone Forms: Maribell Award Info., Patient Portal Info Letter ROHIT/DOESSA Supervising Physician ROHIT/ODESSA Supervising Physician: Faisal SHAHID Narrative [facility] hospital course: Patient will be made aware of her labs which were essentially within their normal limits. She will be discharged home follow-up with primary care physician within 1 week. Clinical Information Provided by patient Medical Records Reviewed None Meds/Rx Considered, not Ordered None Labs/Rad/Tests considered, not Ordered None Chronic Illness/Social Conditions which may negatively complicate care or outcome(s)-explain: None or not applicable Imaging Imaging interpretation: none Medication Administration(s) Medication Administration History Discontinued Medications Ketorolac Tromethamine (Ketorolac Inj 60 Mg/2 Ml Vial) 30 mg IM X1 ONE Stop: 09/20/24 22:55 Last Admin: 09/20/24 23:08 Dose: Not Given Documented By: LINDSAY Non-Admin Reason: Cancelled by Provider Morphine Sulfate (Morphine Sulf Inj 10 Mg/Ml Vial) 5 mg IM X1 ONE Stop: 09/20/24 23:09 Last Admin: 09/20/24 23:28 Dose: 5 mg Documented By: SF Done Diagnosis Differential diagnosis: Renal failure versus renal transplant versus lupus Dispositon Disposition: Discharge Home
[2024-09-21 01:41] VITALS: BP 128/89; PULSE 70; RESP 16; TEMP 36.7; O2SAT 98
== END 2024-09-21 01:42 | disposition home or self-care (01) ==
PROVIDERS: Physician Assistant; Emergency Provider Emergency Medicine; PCP Family Medicine
DX: Z94.0 Kidney transplant status (principal)
CPT/HCPCS: 36415; 80053; 81001; 85025; 86140; 96372; 99283; J1885; J2270

== ENCOUNTER 2025-03-03 11:39 | Emergency (ER) | payer MEDICARE, MEDICAID, SELFPAY ==
[2025-03-03 11:50] VITALS: BP 162/97; PULSE 105; RESP 19; TEMP 36.5; O2SAT 90; BMI 37.0
--- NOTE | 2025-03-03 12:36 | PD.EDHA ---
ED Headache RME/HPI General Chief Complaint: Dizziness Stated Complaint: Off balance, hit a tree yesterday Time Seen by Provider: 03/03/25 12:19 Arrival date/time: 03/03/25 11:39 Limitations: no limitations RME / HPI RME / HPI Narrative: DR. FERRER MAIN ED EVALUATION: 39-year-old female presents to the Emergency Department with complaints of a headache and feeling light headed. Over the last couple of days she has felt depressed and has had ongoing headache. Yesterday she became light headed, fell, and hit her head and right knee. Patient is not taking any aspirin or any blood thinners. Patient also has been feeling palpitations. She has a history of kidney transplant, valley fever, and a prolonged ICU stay in the past that required a tracheostomy for valley fever complications. Medications include clonidine HCl, fluconazole, hydroxychloroquine, magnesium, mycophenolate sodium, omeprazole, prednisone, and tacrolimus. Patient states that she has been depressed recently, having difficulty sleeping and at times gets overwhelmed that she is the primary care take care of her parents that are both requiring medical care at home. Patient states that she does have other adult siblings however they have all declined being able to contribute in her parents care. Patient denies [facility] however would like to get connected with a therapist to help with her processing of events at home. Patient is safe at home. Related Data Home Medications ?Medication ?Instructions ?Recorded ?Confirmed hydroxychloroquine 200 mg tablet 200 mg PO BID ##60 12/21/16 06/08/24 mycophenolate sodium 180 mg See Rx Instructions PO BID 08/28/20 06/08/24 tablet,delayed release omeprazole 20 mg capsule,delayed 20 mg PO DAILY 08/28/20 06/08/24 release prednisone 5 mg tablet 5 mg PO QDAY 08/28/20 06/08/24 tacrolimus 1 mg capsule, 1 mg PO QAM 08/28/20 06/08/24 immediate-release (Prograf) cholecalciferol (vitamin D3) 1,250 50,000 unit PO .WEEK 06/08/24 06/09/24 mcg (50,000 unit) capsule clonidine HCl 0.1 mg tablet 0.1 mg PO QDAY PRN hypertensive 06/08/24 06/08/24 emergency fluconazole 200 mg tablet 600 mg PO DAILY 06/08/24 06/09/24 magnesium 200 mg tablet See Rx Instructions PO QDAY 06/08/24 06/08/24 prednisone 20 mg tablet See Rx Instructions PO QDAY 06/08/24 06/08/24 tacrolimus 0.5 mg capsule, 0.5 mg PO HS 06/10/24 06/10/24 immediate-release Previous Rx's ?Medication ?Instructions ?Recorded erythromycin 5 mg/gram (0.5 %) eye 0.5 inch ophthalmic (eye) QID left 03/03/25 ointment eye corneal abrasion #3.5 grams Allergies Allergy/AdvReac Type Severity Reaction Status Date / Time Penicillins Allergy Severe RASH / Verified 03/03/25 11:44 SWELLING acetaminophen Allergy Rash Verified 03/03/25 11:44 Review of Systems Review of Systems Systems Reviewed: All systems reviewed, normal except as documented Past Medical History Past Medical History NEUROLOGIC: Positive Neurological Disorders and Seizures RESPIRATORY: Positive Pulmonary Embolism GENITOURINARY: Positive Genitourinary Disorders, Renal Disease and Dialysis ENDOCRINE: Positive Endocrine Disorders, Hypothyroidism and Systemic Lupus Erythematosus HEMATOLOGIC: Positive Blood Disorders and Anemia OTHER HISTORY: Positive Blood Transfusions and Organ Transplant Family History FAMILY HISTORY: Positive Family Cardiac Disorders Surgical History SURGICAL: Positive Endocrine Surgery, Thyroidectomy, Abdominal Surgery, Nephrectomy and Organ Transplant Social History SMOKING STATUS: Never smoker SUBSTANCE USE: does not use ED Exam General Limitations: Present no limitations General appearance: Present alert, in no apparent distress and other (chronically ill appearing) Head Head exam: Present normal inspection Eye Eye exam: Present normal appearance, PERRL and EOMI ENT ENT exam: Present normal exam, normal oropharynx and mucous membranes moist Neck Neck exam: Present normal inspection, full ROM and trachea midline Chest Chest inspection: Present normal inspection and symmetric chest wall rise Respiratory Respiratory exam: Present normal lung sounds bilaterally Cardiovascular Cardiovascular exam: Present normal rhythm, tachycardia and normal heart sounds Abdominal Exam Abdominal exam: Present soft and normal bowel sounds; Absent distention or tenderness Extremities Exam Extremities exam: Present full ROM and other (right knee abrasion); Absent tenderness Neurological Exam Neurological exam: Present alert, oriented X3 and CN II-XII intact Psychiatric Psychiatric exam: Present normal affect and normal mood Skin Skin exam: Present warm, dry and normal color (except for right knee abrasion) Course Quality Measures none Orders Category Date Time Status Bedside COVID-19 Antigen Test NOW Care 03/03/25 12:39 Active Bedside Influenza A&B Antigen Test NOW Care 03/03/25 12:39 Active EKG (ED ONLY) *Do not use* NOW Care 03/03/25 12:[address] head/brain wo con Stat Exams 03/03/25 12:41 Completed CXR [XR chest 1V] Stat Exams 03/03/25 12:38 Completed EKG (ED Only) Stat Exams 03/03/25 12:38 Draft XR knee RT 3V Stat Exams 03/03/25 12:50 Completed CBC Stat Lab 03/03/25 12:54 Completed CMP [Comprehensive Metabolic Panel] Stat Lab 03/03/25 12:54 Completed Free T4 (Free Thyroxine) Stat Lab 03/03/25 12:54 Completed HCG,Qualitative Serum Stat Lab 03/03/25 12:54 Completed INR [Prothrombin Time with INR] Stat Lab 03/03/25 12:54 Completed Influenza A & B Rapid Panel Routine Lab 03/03/25 13:23 Completed TSH [Thyroid Stimulating Hormone] Stat Lab 03/03/25 12:54 Completed Tacrolimus,highly sensitive* Stat Lab 03/03/25 12:54 Received Troponin I Stat Lab 03/03/25 12:54 Completed Fluorescein Sodium [Bio-Dee] Med 03/03/25 16:54 Discontinued 1 mg LEFT EYE X1 ONE TETRACAINE Op Marnie 0.5% [Pontocaine Op Marnie 0.5%] Med 03/03/25 17:17 Discontinued 1 drop LEFT EYE X1 ONE Vital Signs Vital signs: Vital Signs Temperature 97.7 F 03/03/25 11:50 Pulse Rate 105 H 03/03/25 11:50 Respiratory Rate 19 03/03/25 11:50 Blood Pressure 162/97 H 03/03/25 11:50 Pulse Oximetry (%) 90 L 03/03/25 11:50 Oxygen Delivery Method Room Air 03/03/25 11:50 Headache MDM Narrative MDM Narrative:: I, Liudmila Landrum am scribing for and in the presence of Dr. Ferrer. 39-year-old female is in the emergency department with concerns for headache, depressed mood, for the last few weeks, feeling lightheaded, and then having a syncopal event and fall yesterday. Patient has a history of w lupus, complicated by renal failure resulting in kidney transplant and valley fever. Exam shows tachycardia and right knee abrasion. Workup initiated for head injury, intracranial hemorrhage, metabolic derangement, urinary tract infection, acute infection, arrhythmia, ACS among others. Ordered labs EKG chest x-ray as well as CT brain. Offer medication for symptom relief. Of note there is a recorded oxygen saturation of 90% when patient was initially triaged however patient was immediately placed on a cardiac catheterization technologist had oxygen saturation 96 to 100% on room air, not dyspneic not tachypneic. My interpretation: EKG performed at 1321 hours, sinus rhythm, rate 79, normal intervals, non specific ST-T wave changes, not a cardiac alert. Labs without acute hematologic abnormality, hemoglobin 11. No significant metabolic abnormality. No transaminitis, thyroid studies unremarkable patient's not troponin not elevated. Chest x-ray with mild vascular congestion. CT head unremarkable x-ray of the knee without evidence of fracture or dislocation. Irrigated patient's wound on her right knee, applied antibiotic ointment, no signs of infection on her knee. Advised patient to monitor closely, apply triple antibiotic ointment, and return immediately if worsening. Redness or discharge. No new or any other symptom of concern. Performed tetracaine fluorescein assessment of patient's left eye, identified a small corneal abrasion approximately 3 o'clock position of her left eye. Patient without any visual field nor difficulties with vision. No evidence of globe rupture. No evidence of preseptal cellulitis. No pain with extraocular muscle movements. Patient has intact extraocular muscle movement. Applied ophthalmic antibiotics, prescribed patient a course of ophthalmic antibiotics. Given patient's clinical improvement, reassuring workup, will discharge to home with close return precautions follow-up with primary care doctor as well as with transplant team. Also provided patient with resources for mental health providers in the area. Patient advised to follow-up with her primary care doctor as well as her transplant team. Discharged hemodynamically stable not Patient data External records reviewed:: [facility] previous records Clinical information provided by:: patient Social determinants that could affect healthcare access:: none Patient has the following chronic illnesses:: She has a history of kidney transplant, valley fever, and a prolonged ICU stay in the past that required a tracheostomy. Medications include clonidine HCl, fluconazole, hydroxychloroquine, magnesium, mycophenolate sodium, omeprazole, prednisone, and tacrolimus. How is presenting disease/condition affected by chronic disease/condition?: exacerbated by Evaluation data The following diagnostics were reviewed and interpreted by me:: lab results, radiology exam(s) and EKG tracing(s) (My interpretation: EKG performed at 1321 hours, sinus rhythm, rate 79, normal intervals, non specific ST-T wave changes, not a cardiac alert) Lab and/or radiology exams considered but not ordered:: none Interpretation Summary: See MDM narrative above. RADIOLOGY Procedure(s): XR chest 1V Accession Number(s): [id number] cc: Cosmo Martinez MD; Jocelyn Ferrer MD~ EXAMINATION: AP chest single view TECHNIQUE: AP portable semiupright chest single view Date and time: March 03, 2025, 1243 hours INDICATIONS: Shortness of breath today. FINDINGS: Mild enlargement cardiac contour Moderate vascular congestion. No pneumonia or pulmonary edema. Mild osteopenia IMPRESSION: Moderate vascular congestion Dictated By: Cosmo Martinez MD Procedure(s): XR knee RT 3V Accession Number(s): [id number] cc: Cosmo Martinez MD; Jocelyn Ferrer MD~ Examination: Knee, right, 3 views Technique: Knee AP, lateral, oblique 3 views Date and time of exam: March 03 2025, 1304 hours INDICATIONS: Patient fell today with injury of the knee, knee pain. FINDINGS: Moderate osteopenia. No fracture or dislocation. No foreign body IMPRESSION: No fracture or dislocation Dictated By: Cosmo Martinez MD Procedure(s): CT head/brain wo con Accession Number(s): [id number] cc: Vic Trejo MD; Cosmo Martinez MD; Jocelyn Ferrer MD~ Examination: CT brain head without contrast. 2-D sagittal coronal reconstructions Date and time of exam: March 03 2025, 1303 hours INDICATIONS: Injury to the head today, head pain CTDI: vol (mGy): 49.3 DLP: (mGycm): 933 Technique: Multiple CT axial sections of the brain have been obtained, 5 mm slice thickness. Contrast has not been administered. 2-D sagittal, coronal reconstructions have been obtained Low dose protocols were performed. One or more of the following dose reduction techniques were used; automated exposure control, adjustment of the mA and/or KV according to patient size, use of iterative reconstruction technique. Findings: No significant ventricular enlargement. Intra-axial or extra-axial hemorrhage density is not seen. No mass effect or midline shift Basal cisterns are not remarkable. Fourth ventricle is midline. Cranial vault intact. Impression: Negative for acute hemorrhage, mass effect or midline shift Dictated By: Cosmo Martinez MD Medications / Prescriptions Medications or Prescriptions considered but not ordered:: none Medication administrations:: Medication Administration History Discontinued Medications Fluorescein Sodium (Fluorescein Sod 1 Mg Strp) 1 mg LEFT EYE X1 ONE Stop: 03/03/25 16:55 Last Admin: 03/03/25 17:12 Dose: 1 mg Documented By: ELLA Tetracaine HCl (Tetracaine Pf Op Marnie 0.5% 4 Ml Drpette) 1 drop LEFT EYE X1 ONE Stop: 03/03/25 17:18 Last Admin: 03/03/25 17:21 Dose: 1 drop Documented By: ELLA see above Consultations Consultation(s) initiated? (list below): No Diagnosis Differential diagnosis headache: other (post traumatic headache, dehydration or electrolyte imbalance, and dizziness secondary to medications) Most likely diagnosis given after review of the tests above:: Syncope Abrasion of knee, right Conjunctival hemorrhage of left eye Abrasion, corneal Admission Indicated Admission indicated?: not indicated Admission Request Was there a request for admission?: No Disposition Plan Disposition Plan: Discharge Discharge Attestation Discharge Attestation: The patient and all family members were given an opportunity to ask questions and understood the discharge instructions. Discharge instructions specifically effects, indications for sooner follow up or return to the emergency department, and the expected course of current diagnosis. Patient condition: Stable Discharge Plan Plan Patient Disposition: HOME (Self Care) Prescriptions/Referrals Prescriptions/Med Rec: New erythromycin 5 mg/gram (0.5 %) ointment 0.5 inch ophthalmic (eye) QID Qty: 3.5 0RF No Action hydroxychloroquine 200 mg Tablet 200 mg PO BID Qty: 60 prednisone 5 mg Tablet 5 mg PO QDAY tacrolimus [Prograf] 1 mg Capsule 1 mg PO QAM Rx Instructions: take 4 capsules (1 mg each) omeprazole 20 mg Capsule,Delayed Release(Dr/Ec) 20 mg PO DAILY mycophenolate sodium 180 mg Tablet,Delayed Release (Dr/Ec) See Rx Instructions PO BID Patient Comments: Changed 3 years ago per pt Rx Instructions: 180mg (2tabs) orally twice a day; prednisone 20 mg tablet See Rx Instructions PO QDAY Patient Comments: PER pt at noon daily Rx Instructions: 20 mg (2 tabs) orally daily; clonidine HCl 0.1 mg tablet 0.1 mg PO QDAY PRN (Reason: hypertensive emergency) Patient Comments: SBP > 140 magnesium 200 mg tablet See Rx Instructions PO QDAY Rx Instructions: 200 mg ( 2 Tabs) orally daily; fluconazole 200 mg tablet 600 mg PO DAILY Patient Comments: TAKE 3 TABLETS BY MOUTH DAILY cholecalciferol (vitamin D3) 1,250 mcg (50,000 unit) capsule 50,000 unit PO .WEEK Patient Comments: TAKE 1 CAPSULE BY MOUTH WEEKLY Rx Instructions: MONDAYS tacrolimus 0.5 mg capsule 0.5 mg PO HS Patient Comments: TAKE ONE CAPSULE BY MOUTH TWICE DAILY Referrals: Vic Trejo MD [Primary Care Provider, Family Practice] - In 1 week Problem List Clinical Impression: Syncope, Abrasion of knee, right, Conjunctival hemorrhage of left eye, Abrasion, corneal Patient/Caregiver Discharge Instructions Education Materials: Causes of Syncope, Corneal Injury, ED Abrasions Additional Instructions: Your left eye has a corneal abrasion, please apply the antibiotic as prescribed. Please follow-up with an shake packer within the next 1 to 2 days. Return immediately if you have swelling around the eyelid, changes in vision, or any other symptom of concern with progress your eye. Your labs EKG chest x-ray and CT were reassuring, they did not identify any acute abnormalities. There is congestion appreciated on chest x-ray however you not requiring any supplemental oxygen, there is no focal infiltrates to suggest a bacterial etiology for this finding. This may be related to your valley fever as you mention today. Your GFR today is 59, in September of this year it was 49. Your cardiac enzyme was normal as well as your thyroid studies and your EKG did not show any evidence of an arrhythmia. It is important that you follow-up with your primary care doctor as well as your transplant team. Please return to the emergency room immediately if you have any worsening symptoms or symptoms of concern. I placed a consult for social work to follow-up with you during business hours. I have included the contact information for some resources in the region for support. [facility] Behavioral Health ? 24-Hour Crisis and Access Lines Mental Health Services Access and Crisis Line:?? Print Language: Lithuanian Stand Alone Forms: [employer] Award Info., Patient Portal Info Letter
--- NOTE | 2025-03-03 12:38 | EKG_ITS ---
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
--- NOTE | 2025-03-03 12:41 | XR_ITS ---
Examination: CT brain head without contrast. 2-D sagittal coronal reconstructions Date and time of exam: March 03 2025, 1303 hours INDICATIONS: Injury to the head today, head pain CTDI: vol (mGy): 49.3 DLP: (mGycm): 933 Technique: Multiple CT axial sections of the brain have been obtained, 5 mm slice thickness. Contrast has not been administered. 2-D sagittal, coronal reconstructions have been obtained Low dose protocols were performed. One or more of the following dose reduction techniques were used; automated exposure control, adjustment of the mA and/or KV according to patient size, use of iterative reconstruction technique. Findings: No significant ventricular enlargement. Intra-axial or extra-axial hemorrhage density is not seen. No mass effect or midline shift Basal cisterns are not remarkable. Fourth ventricle is midline. Cranial vault intact. Impression: Negative for acute hemorrhage, mass effect or midline shift
--- NOTE | 2025-03-03 12:50 | XR_ITS ---
Examination: Knee, right, 3 views Technique: Knee AP, lateral, oblique 3 views Date and time of exam: March 03 2025, 1304 hours INDICATIONS: Patient fell today with injury of the knee, knee pain. FINDINGS: Moderate osteopenia. No fracture or dislocation. No foreign body IMPRESSION: No fracture or dislocation
[2025-03-03 13:17] LABS: Basophils # (Auto) 0.1 Thou/mm3 (0.0-0.2); Basophils % (Auto) 1 % (0-2.5); Eosinophils # (Auto) 0.3 Thou/mm3 (0.0-0.5); Eosinophils % (Auto) 3 % (0-10); Hematocrit 35.6 % (36.0-46.0); Hemoglobin 11.2 g/dL (12.0-16.0); Immature Granulocytes Auto 0.07 Thou/mm3 (0.00-0.00); Lymphocytes # (Auto) 1.4 Thou/mm3 (1.0-4.8); Lymphocytes % (Auto) 12 % (10-50); Mean Corpuscular HGB Conc 31.5 g/dl (31.0-37.0); Mean Corpuscular Hemoglobin 26.5 pg (25.0-35.0); Mean Corpuscular Volume 84 fL (80-100); Monocytes # (Auto) 0.8 Thou/mm3 (0.0-0.8); Monocytes % (Auto) 7 % (0-12); Neutrophils # (Auto) 8.7 Thou/mm3 (1.8-7.7); Neutrophils % (Auto) 77 % (37-80); Nucleated Red Blood Cell # 0.00 Thou/mm3 (0.00-0.00); Nucleated Red Blood Cell % 0 /100 WBC (0); Platelet Count 255 Thou/mm3 (140-440); RDW Standard Deviation 43.0 fL (36.4-46.3); Red Blood Count 4.22 Miln/mm3 (4.00-5.20); White Blood Count 11.2 Thou/mm3 (3.6-11.0)
[2025-03-03 13:34] LABS: Alanine Aminotransferase 16 U/L (10-49); Albumin, Serum 4.1 gm/dL (3.5-5.0); Albumin/Globulin Ratio 1.6 (1.2-2.2); Alkaline Phosphatase 116 U/L (46-116); Anion Gap 8 (7-16); Aspartate Amino Transferase 20 U/L (0-34); BUN/Creatinine Ratio 16 Ratio (12-20); Bilirubin,Total 0.2 mg/dL (0.3-1.2); Blood Urea Nitrogen 19 mg/dL (9-23); Calcium 8.0 mg/dL (8.3-10.6); Calcium (Corrected) 8.0 mg/dL (8.5-10.1); Carbon Dioxide 24.8 mMol/L (20.0-31.0); Chloride 108 mMol/L (98-107); Creatinine (Component) 1.2 mg/dL (0.6-1.3); Estimated Creatinine Clearance 79.4 mL/min (>60); Free T4 (Free Thyroxine) 1.24 ng/dL (0.89-1.76); Globulin 2.5 gm/dL (2.3-3.5); Glucose 85 mg/dL (74-106); Osmolality,Calculated 282 (275-295); Potassium 3.8 mMol/L (3.4-5.1); Sodium 141 mMol/L (136-145); Thyroid Stimulating Hormone 1.50 uIU/mL (0.55-4.78); Total Protein 6.6 gm/dL (5.7-8.2); Troponin I < 0.020 ng/mL (0.0-0.045); eGFR 59 See Note
[2025-03-03 13:37] LABS: INR 1.0 (0.9-1.3); Prothrombin Time 11.0 Seconds (9.0-12.2)
[2025-03-03 13:43] LABS: HCG,Qualitative Serum Negative
[2025-03-03 14:40] VITALS: BP 167/107; PULSE 83; RESP 18; O2SAT 96
[2025-03-03 15:36] LABS: Influenza A Ag Negative; Influenza B Ag Negative
[2025-03-03] MEDS: FLUORESCEIN SOD 1 MG STRP LEFT EYE (17:12)
[2025-03-03] MEDS: TETRACAINE PF OP SOL 0.5% 4 ML DRPETTE 1 DROP LEFT EYE (17:21)
[2025-03-03] MEDS: Erythromycin Op Oint 0.5% 1 GM PACKET LEFT EYE (18:21)
[2025-03-03 18:34] VITALS: BP 132/86; PULSE 65; RESP 18; TEMP 37.1; O2SAT 99
[2025-03-12 07:02] LABS: Tacrolimus,highly sensitive* 3.1 mcg/L (5.0-20.0)
== END 2025-03-03 18:35 | disposition home or self-care (01) ==
PROVIDERS: Emergency Provider Emergency Medicine; PCP Family Medicine
DX: H11.33 Conjunctival hemorrhage, bilateral (principal); S80.211A Abrasion, right knee, initial encounter; S05.02XA Injury of conjunctiva and corneal abrasion without foreign body, left eye, initial encounter; R55 Syncope and collapse; W19.XXXA Unspecified fall, initial encounter; Z79.624 Long term (current) use of inhibitors of nucleotide synthesis; Z94.0 Kidney transplant status; Z90.89 Acquired absence of other organs
CPT/HCPCS: 36415; 70450; 71045; 73562; 80053; 80197; 84439; 84443; 84484; 84703; 85025; 85610; 87502; 87635; 93005; 99283; A9270

== ENCOUNTER 2025-03-24 01:46 | Emergency (ER) | payer MEDICARE, MEDICAID, SELFPAY ==
[2025-03-24 01:48] VITALS: PULSE 114; RESP 16; O2SAT 98; BMI 33.9
--- NOTE | 2025-03-24 01:48 | EKG_ITS ---
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
[2025-03-24 01:50] VITALS: BP 142/57; PULSE 110; RESP 18; TEMP 36.3; O2SAT 99
--- NOTE | 2025-03-24 02:06 | PD.EDCHEST ---
ED Chest Pain RME/HPI General Chief Complaint: Chest Pain Stated Complaint: CHEST PAIN Time Seen by Provider: 03/24/25 02:06 Arrival date/time: 03/24/25 01:46 RME / HPI RME / HPI narrative: See [facility] for Dr. Bustos's HPI Documentation. Related Data Home Medications ?Medication ?Instructions ?Recorded ?Confirmed hydroxychloroquine 200 mg tablet 200 mg PO BID ##60 12/21/16 06/08/24 mycophenolate sodium 180 mg See Rx Instructions PO BID 08/28/20 06/08/24 tablet,delayed release omeprazole 20 mg capsule,delayed 20 mg PO DAILY 08/28/20 06/08/24 release prednisone 5 mg tablet 5 mg PO QDAY 08/28/20 06/08/24 tacrolimus 1 mg capsule, 1 mg PO QAM 08/28/20 06/08/24 immediate-release (Prograf) cholecalciferol (vitamin D3) 1,250 50,000 unit PO .WEEK 06/08/24 06/09/24 mcg (50,000 unit) capsule clonidine HCl 0.1 mg tablet 0.1 mg PO QDAY PRN hypertensive 06/08/24 06/08/24 emergency fluconazole 200 mg tablet 600 mg PO DAILY 06/08/24 06/09/24 magnesium 200 mg tablet See Rx Instructions PO QDAY 06/08/24 06/08/24 prednisone 20 mg tablet See Rx Instructions PO QDAY 06/08/24 06/08/24 tacrolimus 0.5 mg capsule, 0.5 mg PO HS 06/10/24 06/10/24 immediate-release Previous Rx's ?Medication ?Instructions ?Recorded erythromycin 5 mg/gram (0.5 %) eye 0.5 inch ophthalmic (eye) QID left 03/03/25 ointment eye corneal abrasion #3.5 grams Allergies Allergy/AdvReac Type Severity Reaction Status Date / Time Penicillins Allergy Severe RASH / Verified 03/24/25 01:48 SWELLING acetaminophen Allergy Rash Verified 03/24/25 01:48 Review of Systems Review of Systems Systems Reviewed: All systems reviewed, normal except as documented Past Medical History Past Medical History NEUROLOGIC: Positive Neurological Disorders and Seizures (2023) CARDIAC: Positive Hypertension (WHEN PT ON HD) RESPIRATORY: Positive Pulmonary Embolism GENITOURINARY: Positive Genitourinary Disorders, Renal Disease and Dialysis (2019) ENDOCRINE: Positive Endocrine Disorders, Hypothyroidism (thryroidectomy) and Systemic Lupus Erythematosus HEMATOLOGIC: Positive Blood Disorders and Anemia OTHER HISTORY: Positive Blood Transfusions and Organ Transplant Family History FAMILY HISTORY: Positive Family Cardiac Disorders Surgical History SURGICAL: Positive Endocrine Surgery, Thyroidectomy, Abdominal Surgery, Nephrectomy and Organ Transplant ED Exam Narrative Physical exam: See [facility] for Dr. Bustos's Physical Exam Documentation. Course Quality Measures none Orders Category Date Time Status EKG (ED ONLY) *Do not use* NOW Care 03/24/25 01:48 Completed Saline [Insert IV] NOW Care 03/24/25 02:09 Completed Straight [In and Out Catheter] X1 Care 03/24/25 02:09 Completed EKG (ED Only) Stat Exams 03/24/25 01:48 Draft XR chest 1V portable Stat Exams 03/24/25 02:10 Completed BNP [B-Type Natriuretic Peptide] Stat Lab 03/24/25 02:32 Completed Bilirubin,Direct Stat Lab 03/24/25 02:32 Completed CBC Stat Lab 03/24/25 02:32 Completed CMP [Comprehensive Metabolic Panel] Stat Lab 03/24/25 02:32 Completed D-Dimer Stat Lab 03/24/25 02:32 Completed HCG,Qualitative Serum Stat Lab 03/24/25 02:32 Completed Hemoglobin A1C [Glycohemoglobin w (eAG)] Stat Lab 03/24/25 02:32 Completed Magnesium Stat Lab 03/24/25 02:32 Completed TSH [Thyroid Stimulating Hormone] Stat Lab 03/24/25 02:32 Completed Troponin I Stat Lab 03/24/25 02:32 Completed Troponin I Stat Lab 03/24/25 04:43 Completed UA, C/S IF [Urinalysis, C/S if Indicated] Stat Lab 03/24/25 03:11 Completed ALPRazoLAM [Xanax] Med 03/24/25 03:48 Discontinued 0.5 mg PO X1 ONE Morphine* Inj Med 03/24/25 02:10 Discontinued 2 mg IV X1 ONE Ondansetron Inj [Zofran Inj] Med 03/24/25 02:10 Discontinued 4 mg IVP X1 ONE Vital Signs Vital signs: Vital Signs Temperature 97.3 F 03/24/25 01:50 Pulse Rate 110 H 03/24/25 01:50 Respiratory Rate 18 03/24/25 01:50 Blood Pressure 142/57 H 03/24/25 01:50 Pulse Oximetry (%) 99 03/24/25 01:50 Oxygen Delivery Method Room Air 03/24/25 01:50 Chest Pain MDM Narrative MDM Narrative:: This section includes all my notes and documentations, including HPI, PE, and ED course. Chiki Bustos MD HPI: 39 y/o female with Systemic Lupus Erythematosus and Kidney Transplant (several years ago at [facility]) BIBA from home with on and off chest pain since yesterday. No other symptoms. Including shortness of breath and fatigue and diaphoresis and dizziness and nausea and palpitations). No other complaints ROS: All negative except as documented in HPI. Physical Exam: General: Alert and oriented. No acute distress when remaining still. Eyes: Conjunctivae and lids clear. ENT: No nasal congestion. Neck: Supple. Heart: RRR. Chest: Equivocal tenderness with palpation. Lungs: No respiratory distress. Good air movement. No rhonchi, wheezing, rales. Abdomen: Soft and nontender. Normal bowel sounds. No distension. No rebound or guarding. Back: No CVA tenderness. Skin: Warm and dry. Neuro: Alert and oriented X 3. I reviewed EMS notes. I reviewed all diagnostic test results: My interpretation of the EKG is: Sinus rhythm (95 bpm) with nonspecific ST-T changes. My interpretation of the chest x-ray is: NAD. Blood/urine tests unremarkable, including negative troponin X 2. At this point, diagnoses include: Chest pain of unclear etiology Treatment here included: Zofran 4 mg and morphine 2 mg IV (no improvement noted) Xanax 0.5 mg (she felt better) Recommended outpatient treatment. Based on my best medical judgment, made decision no further evaluation or treatment indicated at this time. Patient understands and agrees to the discharge instructions customized and printed, see below. Discharge instructions from Dr. Bustos: 1. After extensive evaluation, there is no life-threatening condition. Such as heart attack or pulmonary embolism (blood clots in your lungs) or pneumothorax (collapsed lung). 2. Your symptoms may be due to underlying stress or anxiety or nerves. 3. Your pain may be originating from the chest wall and not from an internal organ.? The chest wall has many joints and muscles between the ribs, so sprains and strains are common.? Apply ice or heat if helpful. Tylenol as needed. 4. See a private doctor on 03/26/2025 for recheck. To make sure there is no serious underlying heart condition, ask to help you get more tests for your heart that cannot be done here in the ER. Such as Holter Monitor (cardiac monitoring at home from a day to even a month), heart stress test (on treadmill or with medication), echocardiogram (imaging of your heart structures), heart catherization (checking for blockages in your heart arteries), and a referral to see a Carbon Lamp Cleaner. Ask to review all test results and official radiology reports, to make sure you receive all necessary follow-ups and monitoring. 5. Seek immediate medical care with worsening or with any concerns. Chiki Bustos MD Patient data External records reviewed:: [facility] previous records (Reviewed prior ED records from 03/03/25. Patient was seen for Abrasion of knee, right.) and EMS form Clinical information provided by:: patient and EMS Social determinants that could affect healthcare access:: none Patient has the following chronic illnesses:: Seizures, Hypertension, Pulmonary Embolism, Renal Disease and Dialysis, Hypothyroidism, Systemic Lupus Erythematosus, Anemia How is presenting disease/condition affected by chronic disease/condition?: exacerbated by Evaluation data The following diagnostics were reviewed and interpreted by me:: EKG tracing(s) (My interpretation of the EKG is: Sinus rhythm (95 bpm) with nonspecific ST-T changes. Chiki Bustos MD) Lab and/or radiology exams considered but not ordered:: None Interpretation Summary: I reviewed all diagnostic test results: My interpretation of the EKG is: Sinus rhythm (95 bpm) with nonspecific ST-T changes. My interpretation of the chest x-ray is: NAD. Blood/urine tests unremarkable, including negative troponin X 2. Medications / Prescriptions Medications or Prescriptions considered but not ordered:: None Medication administrations:: Medication Administration History Discontinued Medications Alprazolam (Alprazolam 0.25 Mg Tablet) 0.5 mg PO X1 ONE Stop: 03/24/25 03:49 Last Admin: 03/24/25 03:59 Dose: Not Given Documented By: Non-Admin Reason: Patient Refused Morphine Sulfate (Morphine Sulf Inj 4 Mg/Ml Vial) 2 mg IV X1 ONE Stop: 03/24/25 02:11 Last Admin: 03/24/25 02:20 Dose: 2 mg Documented By: FELIPE Ondansetron HCl (Ondansetron Inj 2 Mg/Ml Inj 2 Ml) 4 mg IVP X1 ONE; Protocol Stop: 03/24/25 02:11 Last Admin: 03/24/25 02:21 Dose: 4 mg Documented By: FELIPE Treatment here included: Zofran 4 mg and morphine 2 mg IV (no improvement noted) Xanax 0.5 mg (she felt better) Consultations Consultation(s) initiated? (list below): No Diagnosis Chest Pain Differential Diagnosis: pneumothorax, stable angina, unstable angina pectoris, atypical chest pain, st elevation myocardial infarction, costochondritis and chest pain Most likely diagnosis given after review of the tests above:: Chest pain of unclear etiology Admission Indicated Admission indicated?: not indicated Explain why admission is indicated or not indicated:: With significant improvement and no condition needing emergent intervention, there was no indication for admission. Admission Request Was there a request for admission?: No Disposition Plan Disposition Plan: Discharge Discharge Attestation Discharge Attestation: The patient and all family members were given an opportunity to ask questions and understood the discharge instructions. Discharge instructions specifically effects, indications for sooner follow up or return to the emergency department, and the expected course of current diagnosis. Patient condition: Stable Discharge Plan Plan Patient Disposition: HOME (Self Care) Prescriptions/Referrals Prescriptions/Med Rec: No Action hydroxychloroquine 200 mg Tablet 200 mg PO BID Qty: 60 prednisone 5 mg Tablet 5 mg PO QDAY tacrolimus [Prograf] 1 mg Capsule 1 mg PO QAM Rx Instructions: take 4 capsules (1 mg each) omeprazole 20 mg Capsule,Delayed Release(Dr/Ec) 20 mg PO DAILY mycophenolate sodium 180 mg Tablet,Delayed Release (Dr/Ec) See Rx Instructions PO BID Patient Comments: Changed 3 years ago per pt Rx Instructions: 180mg (2tabs) orally twice a day; prednisone 20 mg tablet See Rx Instructions PO QDAY Patient Comments: PER pt at noon daily Rx Instructions: 20 mg (2 tabs) orally daily; clonidine HCl 0.1 mg tablet 0.1 mg PO QDAY PRN (Reason: hypertensive emergency) Patient Comments: SBP > 140 magnesium 200 mg tablet See Rx Instructions PO QDAY Rx Instructions: 200 mg ( 2 Tabs) orally daily; fluconazole 200 mg tablet 600 mg PO DAILY Patient Comments: TAKE 3 TABLETS BY MOUTH DAILY cholecalciferol (vitamin D3) 1,250 mcg (50,000 unit) capsule 50,000 unit PO .WEEK Patient Comments: TAKE 1 CAPSULE BY MOUTH WEEKLY Rx Instructions: MONDAYS tacrolimus 0.5 mg capsule 0.5 mg PO HS Patient Comments: TAKE ONE CAPSULE BY MOUTH TWICE DAILY erythromycin 5 mg/gram (0.5 %) ointment 0.5 inch ophthalmic (eye) QID Qty: 3.5 0RF Referrals: Vic Trejo MD [Primary Care Provider, Family Practice] - In 1 week Problem List Clinical Impression: Chest pain Patient/Caregiver Discharge Instructions Discharge Activity: activity as tolerated Education Materials: ED Chest Pain, Uncertain Cause Additional Instructions: Discharge instructions from Dr. Bustos: 1. After extensive evaluation, there is no life-threatening condition. Such as heart attack or pulmonary embolism (blood clots in your lungs) or pneumothorax (collapsed lung). 2. Your symptoms may be due to underlying stress or anxiety or nerves. 3. Your pain may be originating from the chest wall and not from an internal organ.? The chest wall has many joints and muscles between the ribs, so sprains and strains are common.? Apply ice or heat if helpful. Tylenol as needed. 4. See a private doctor on 03/26/2025 for recheck. To make sure there is no serious underlying heart condition, ask to help you get more tests for your heart that cannot be done here in the ER. Such as Holter Monitor (cardiac monitoring at home from a day to even a month), heart stress test (on treadmill or with medication), echocardiogram (imaging of your heart structures), heart catherization (checking for blockages in your heart arteries), and a referral to see a Carbon Lamp Cleaner. Ask to review all test results and official radiology reports, to make sure you receive all necessary follow-ups and monitoring. 5. Seek immediate medical care with worsening or with any concerns. Print Language: Khmer Stand Alone Forms: [employer] Info., Patient Portal Info Letter
--- NOTE | 2025-03-24 02:10 | XR_ITS ---
EXAMINATION: AP chest single view TECHNIQUE: AP portable upright chest single view Date and time: March 24, 2025, 0221 hours, comparison March 03, 2025 INDICATIONS: Chest pain shortness of breath today. FINDINGS: Normal heart size Mild vascular congestion No lobar pneumonia or pulmonary edema Intact osseous structures IMPRESSION: No pneumonia or pulmonary edema
[2025-03-24] MEDS: MORPHINE SULF INJ 4 MG/ML VIAL 2 MG IV (02:20)
[2025-03-24] MEDS: ONDANSETRON INJ 2 MG/ML INJ 2 ML 4 MG IVP (02:21)
[2025-03-24 02:49] LABS: Basophils # (Auto) 0.1 Thou/mm3 (0.0-0.2); Basophils % (Auto) 1 % (0-2.5); Eosinophils # (Auto) 0.4 Thou/mm3 (0.0-0.5); Eosinophils % (Auto) 3 % (0-10); Hematocrit 35.0 % (36.0-46.0); Hemoglobin 11.1 g/dL (12.0-16.0); Immature Granulocytes Auto 0.07 Thou/mm3 (0.00-0.00); Lymphocytes # (Auto) 1.7 Thou/mm3 (1.0-4.8); Lymphocytes % (Auto) 15 % (10-50); Mean Corpuscular HGB Conc 31.7 g/dl (31.0-37.0); Mean Corpuscular Hemoglobin 26.3 pg (25.0-35.0); Mean Corpuscular Volume 83 fL (80-100); Monocytes # (Auto) 0.8 Thou/mm3 (0.0-0.8); Monocytes % (Auto) 7 % (0-12); Neutrophils # (Auto) 8.5 Thou/mm3 (1.8-7.7); Neutrophils % (Auto) 73 % (37-80); Nucleated Red Blood Cell # 0.00 Thou/mm3 (0.00-0.00); Nucleated Red Blood Cell % 0 /100 WBC (0); Platelet Count 292 Thou/mm3 (140-440); RDW Standard Deviation 42.3 fL (36.4-46.3); Red Blood Count 4.22 Miln/mm3 (4.00-5.20); White Blood Count 11.6 Thou/mm3 (3.6-11.0)
[2025-03-24 02:52] LABS: Glucose Estimated Average 120 mg/dL (80-131); Hemoglobin A1C 5.8 % Hgb (4.8-6.0)
[2025-03-24 02:56] LABS: B-Type Natriuretic Peptide 26 pg/mL (0-100); D-Dimer < 250 ng/mL (<600)
[2025-03-24 02:59] LABS: HCG,Qualitative Serum Negative
[2025-03-24 03:00] LABS: Alanine Aminotransferase 26 U/L (10-49); Albumin, Serum 4.1 gm/dL (3.5-5.0); Albumin/Globulin Ratio 1.4 (1.2-2.2); Alkaline Phosphatase 133 U/L (46-116); Anion Gap 12 (7-16); Aspartate Amino Transferase 23 U/L (0-34); BUN/Creatinine Ratio 14 Ratio (12-20); Bilirubin,Direct 0.1 mg/dL (0.0-0.3); Bilirubin,Total 0.3 mg/dL (0.3-1.2); Blood Urea Nitrogen 18 mg/dL (9-23); Calcium 8.7 mg/dL (8.3-10.6); Calcium (Corrected) 8.7 mg/dL (8.5-10.1); Carbon Dioxide 21.9 mMol/L (20.0-31.0); Chloride 106 mMol/L (98-107); Creatinine (Component) 1.3 mg/dL (0.6-1.3); Estimated Creatinine Clearance 67.6 mL/min (>60); Globulin 2.9 gm/dL (2.3-3.5); Glucose 98 mg/dL (74-106); Magnesium 1.6 mg/dL (1.6-2.6); Osmolality,Calculated 281 (275-295); Potassium 3.4 mMol/L (3.4-5.1); Sodium 140 mMol/L (136-145); Thyroid Stimulating Hormone 2.04 uIU/mL (0.55-4.78); Total Protein 7.0 gm/dL (5.7-8.2); Troponin I < 0.020 ng/mL (0.0-0.045); eGFR 54 See Note
[2025-03-24 03:45] LABS: Collection Type, Urine Clean Catch
[2025-03-24 03:53] LABS: Amorphous Crystals,Urine Present (Absent); Bacteria,Urine Rare; Bilirubin,Urine Negative (Negative); Blood,Urine Negative (Negative); Clarity,Urine Clear (Clear/Hazy); Color,Urine Colorless (Lt Yel-Yel); Culture Indicated,Urine Not Indicated; Glucose, Urine Negative (Negative); Ketones,Urine Negative (Negative); Leukocyte Esterase,Urine Positive (Negative); Nitrite,Urine Negative (Negative); PH,Urine 6.0 (5.0-7.0); Protein,Urine Negative (Neg - Trace); RBC,Urine < 1 /hpf (0-3); Specific Gravity,Urine 1.007 (1.001-1.035); Squamous Epithelial Cell,Urine 9 /hpf (0-5); Urobilinogen,Urine Negative mg/dL (0.0-1.0); WBC,Urine < 1 /hpf (0-5)
[2025-03-24 04:07] VITALS: BP 113/75; PULSE 82; RESP 20; TEMP 36.7; O2SAT 100
[2025-03-24 05:37] LABS: Troponin I < 0.020 ng/mL (0.0-0.045)
[2025-03-24 05:50] VITALS: BP 131/99; PULSE 88; RESP 14; O2SAT 100
[2025-03-24 06:04] VITALS: BP 100/68; PULSE 81; RESP 18; TEMP 36.6; O2SAT 100
== END 2025-03-24 06:34 | disposition home or self-care (01) ==
PROVIDERS: Emergency Provider Emergency Medicine; PCP Family Medicine
DX: R07.9 Chest pain, unspecified (principal); R06.02 Shortness of breath; R94.31 Abnormal electrocardiogram [ECG] [EKG]; I10 Essential (primary) hypertension
CPT/HCPCS: 36415; 71045; 80053; 81001; 82248; 83036; 83735; 83880; 84443; 84484; 84703; 85025; 85379; 93005; 96374; 99283; J2270; J2405